=== PATIENT | female | born 1985 | race Caucasian/White ===

== ENCOUNTER 2020-06-23 08:45 | Outpatient (REF) | payer MEDICAID, SELFPAY ==
--- NOTE | 2020-06-23 | EMG_ITS ---
HISTORY OF PRESENT ILLNESS: This is a 35-year-old woman with bilateral hand pain and numbness for 7 months. The symptoms are primarily on the right. PHYSICAL EXAMINATION: On examination, she is alert and oriented with normal intellectual functions. Cranial nerves II through XII are normal. Muscle tone and strength are normal. There is no Tinel or Phalen sign. IMPRESSION: Rule out carpal tunnel syndrome. NERVE CONDUCTION EMG STUDY: Normal electrodiagnostic study of the right upper extremity with no evidence of carpal tunnel syndrome or nerve entrapment. Normal EMG of the right C5-T1 innervated muscles. MD CATARINO Osborne/OSWALD / [id number]
== END 2020-06-23 08:46 | disposition home or self-care (01) ==
LOC: HO.NEURO 08:45
PROVIDERS: PCP Family Medicine; Visit Provider Family Medicine
DX: M25.531 Pain in right wrist (principal); M79.641 Pain in right hand
CPT/HCPCS: 95860; 95886; 95910

== ENCOUNTER 2020-11-24 10:19 | Outpatient (REF) | payer MEDICAID, SELFPAY ==
--- NOTE | ~2020-11-24 | XR_ITS ---
EXAMINATION: XR ANKLE, LEFT CLINICAL INFORMATION: Effusion left ankle. COMPARISON: None TECHNIQUE: AP, lateral, and mortise views of the left ankle. FINDINGS: There is no fracture, dislocation or destructive process. The malleoli are intact and the ankle mortise is symmetric. The tibiotalar joint shows no narrowing, erosive change or chondrocalcinosis. There is no visible ankle capsular effusion. The retrocalcaneal recess is preserved. The subtalar joint is unremarkable. There is borderline posterior calcaneal spur. XR/XR ankle LT min 3V IMPRESSION: No fracture, destructive process, or arthropathy. No visible ankle capsular effusion.
--- NOTE | ~2020-11-24 | XR_ITS ---
EXAMINATION: XR RIBS, LEFT CLINICAL INFORMATION: Pleurodynia. COMPARISON: Chest radiographs 12/25/2018, 11/02/2012 TECHNIQUE: Three views of the left ribs were obtained. FINDINGS: There is no visible rib fracture or rib destructive process. No periostitis. Bony mineralization is normal. The left lung is clear, and there is no pneumothorax or pleural reaction or effusion. XR/XR ribs LT 2V IMPRESSION: Unremarkable examination.
== END 2020-11-24 10:20 | disposition home or self-care (01) ==
LOC: HO.XRAY 10:19
PROVIDERS: PCP Family Medicine; Visit Provider Family Medicine
DX: M25.472 Effusion, left ankle (principal); R07.81 Pleurodynia
CPT/HCPCS: 71100; 73610

== ENCOUNTER 2020-12-22 08:15 | Outpatient (REF) | payer MEDICAID, SELFPAY ==
--- NOTE | ~2020-12-22 | US_ITS ---
EXAMINATION: US ABDOMEN COMPLETE CLINICAL INFORMATION: Left upper quadrant pain. COMPARISON: Renals only ultrasound dated 05/29/2017. CT abdomen and pelvis without contrast dated 04/17/2017. Bilateral renal ultrasound dated 08/04/2011. TECHNIQUE: Real-time imaging of the abdominal viscera. FINDINGS: PANCREAS: The head and body the pancreas are normal. The tail is not well visualized due to bowel gas. ABDOMINAL AORTA: The proximal, mid, and distal segments are normal in caliber. INFERIOR VENA CAVA: Visualized portions are normal. LIVER: Normal. The liver is normal in size. The liver contour is normal. Parenchymal echogenicity is normal. No focal hepatic lesion. There is no intrahepatic biliary duct dilatation seen. GALLBLADDER: The gallbladder is physiologically distended. Multiple mobile gallstones are present. No evidence of gallbladder wall thickening or pericholecystic fluid. COMMON BILE DUCT: Normal in caliber measuring 0.3 cm in diameter. RIGHT KIDNEY: There is a 4 mm echogenic density with twinkle artifact in the upper pole interval for a stone. This is similar to previous renal ultrasound May 2017. No hydronephrosis or focal parenchymal lesions. The kidney measures 10.3 cm in maximum dimension. LEFT KIDNEY: 1.3 x 1 x 1.1 cm cyst in the upper pole. No hydronephrosis or renal calculi. The kidney measures 10.6 cm in maximum dimension. SPLEEN: Normal. The spleen measures 9.6 cm in maximum dimension. FREE FLUID: None. US/US abdomen complete IMPRESSION: Gallstones. Question small right renal stone. Small left renal cyst. Limited visualization of the tail the pancreas.
== END 2020-12-22 08:16 | disposition home or self-care (01) ==
LOC: HO.US 08:15
PROVIDERS: Visit Provider Family Medicine
DX: R10.12 Left upper quadrant pain (principal)
CPT/HCPCS: 76700

== ENCOUNTER 2021-01-03 08:52 | Outpatient (REF) | payer MEDICAID, SELFPAY ==
--- NOTE | ~2021-01-03 | CT_ITS ---
EXAMINATION: CT ABDOMEN AND PELVIS WITHOUT CONTRAST CLINICAL INFORMATION: Kidney stone COMPARISON: Previous abdominal ultrasound December 2020, pelvic ultrasound June [address] of the abdomen and pelvis April 2017 TECHNIQUE: Multidetector volumetric imaging was performed from the superior aspect of the liver through the pubic symphysis. Sagittal and coronal reformatted images were obtained on the technologist's workstation. This CT examination was performed using dose optimization techniques as appropriate, variously including the following: *Automated exposure control *Adjustment of mA and/or kV according to patient size (this includes techniques or standardized protocols for targeted exams where dose is matched to indication/reason for exam; i.e. extremities or head) *Use of iterative reconstruction technique DLP: 460 mGy-cm FINDINGS: LUNG BASES: The visualized lung bases are unremarkable. LIVER, GALLBLADDER, AND BILIARY TREE: The liver is normal in size, shape, and attenuation. No focal hepatic lesion or biliary ductal dilatation is present. The gallbladder is unremarkable. The gallstones seen by ultrasound are difficult to appreciate by CT. PANCREAS: Unremarkable. SPLEEN: Unremarkable. ADRENAL GLANDS: Unremarkable. KIDNEYS AND URETERS: There is a 3 mm stone in the lower pole the right kidney. There is a 1.5 cm low-attenuation lesion in the upper pole of the left kidney. Hounsfield units measure 14 suggestive of a cyst. This is similar to previous exams. The kidneys are otherwise normal.. BLADDER: Unremarkable. GASTROINTESTINAL TRACT: The small and large bowel are unremarkable. The appendix is unremarkable. ABDOMINAL WALL: No significant hernia is appreciated. LYMPH NODES: Normal. VASCULAR: Unremarkable. PELVIC VISCERA: Unremarkable. OSSEOUS STRUCTURES: Unremarkable. CT/CT abdomen pelvis wo con IMPRESSION: Small right lower pole renal stone. Left renal cyst.
== END 2021-01-03 08:53 | disposition home or self-care (01) ==
LOC: HO.CT 08:52
PROVIDERS: PCP Family Medicine; Visit Provider Family Medicine
DX: N20.0 Calculus of kidney (principal); R10.9 Unspecified abdominal pain
CPT/HCPCS: 74176

== ENCOUNTER 2021-05-24 16:30 | Outpatient (REF) | payer MEDICAID, SELFPAY ==
[2021-05-24 16:59] LABS: MANUAL DIFF FLAG NO
[2021-05-24 17:55] LABS: Basophils Absolute Auto 0.1 X10*3/uL (0.0-0.2); Basophils Percent Auto 0.8 % (0-2); Eosinophils Absolute Auto 0.1 X10*3/uL (0.0-0.4); Eosinophils Percent Auto 0.6 % (0-4); Hematocrit 38.4 % (37-47); Hemoglobin 12.2 g/dl (12.0-16.0); Imm Gran Abs Auto 0.03 X10*3/uL (0.00-0.03); Imm Gran Pct Auto 0.4 % (0.0-0.4); Lymphocytes Absolute Auto 2.4 X10*3/uL (1.2-4.9); Lymphocytes Percent Auto 27.7 % (20-40); Mean Corpuscular HGB Conc 31.8 g/dl (31.0-35.0); Mean Corpuscular Hemoglobin 25.9 pg (27.0-33.0); Mean Corpuscular Volume 81.5 fL (80-98); Mean Platelet Volume 11.6 fL (9.4-12.3); Monocytes Absolute Auto 0.7 X10*3/uL (0.1-1.2); Monocytes Percent Auto 8.1 % (2-11); Neutrophils Absolute Auto 5.3 X10*3/uL (2.0-8.3); Neutrophils Percent Auto 62.4 % (45-73); Platelet Count 229 X10*3/uL (160-400); Red Blood Count 4.71 X10*6/uL (4.20-5.50); Red Cell Distribution Width 13.7 % (11.0-16.0); White Blood Count 8.5 X10*3/uL (4.8-10.8)
[2021-05-24 18:18] LABS: C Reactive Protein 0.55 mg/dL (< or = 0.50)
[2021-05-24 18:45] LABS: Erythrocyte Sedimentation Rate 10 MM/HR (0-20)
== END 2021-05-24 16:31 | disposition home or self-care (01) ==
LOC: HO.LAB 16:30
PROVIDERS: PCP Family Medicine; Visit Provider Podiatrist
DX: Z13.89 Encounter for screening for other disorder (principal)
CPT/HCPCS: 36415; 84550; 85025; 85652; 86140

== ENCOUNTER 2021-10-19 16:31 | Outpatient (REF) | payer MEDICAID, SELFPAY ==
--- NOTE | ~2021-10-19 | XR_ITS ---
EXAMINATION: XR KNEE, LEFT CLINICAL INFORMATION: Pain in left knee COMPARISON: None TECHNIQUE: Four views of the left knee. FINDINGS: Bones and soft tissues are normal. No fracture or joint effusion. Alignment is anatomic. On sunrise view there is equivocal mild narrowing of the lateral patellofemoral compartment, otherwise the joint spaces are well maintained. No abnormal soft tissue calcification. XR/XR knee LT 4V IMPRESSION: Equivocal mild narrowing of the lateral patellofemoral compartment, otherwise normal left knee.
--- NOTE | ~2021-10-19 | XR_ITS ---
EXAMINATION: XR ANKLE, LEFT CLINICAL INFORMATION: Pain in left ankle and joints and left foot COMPARISON: Ankle radiographs 11/24/2020 TECHNIQUE: AP, lateral, and mortise views of the left ankle. FINDINGS: The bones and soft tissues are normal. No fracture. Alignment is anatomic. Joint spaces are maintained. No joint effusion. XR/XR ankle LT min 3V IMPRESSION: Normal left ankle.
== END 2021-10-19 16:32 | disposition home or self-care (01) ==
LOC: HO.XRAY 16:31
PROVIDERS: PCP Family Medicine; Visit Provider Family Medicine
DX: M25.562 Pain in left knee (principal); M25.572 Pain in left ankle and joints of left foot
CPT/HCPCS: 73564; 73610

== ENCOUNTER 2021-11-14 00:24 | Emergency (ER) | payer MEDICAID, SELFPAY ==
[2021-11-14 00:34] VITALS: BP 127/82; PULSE 89; RESP 16; TEMP 36.6; O2SAT 97; BMI 31.2
[2021-11-14] MEDS: Acetaminophen 325 MG TABLET 975 MG PO (02:45)
[2021-11-14] MEDS: Ketorolac Tromethamine 15 MG/ML VIAL IM (02:45)
[2021-11-14] MEDS: Lidocaine 4 % Patch ADH..PATCH 1 PATCH TRANSDERMA (02:46)
--- NOTE | 2021-11-14 03:21 | ED.BACK ---
HPI - Back Pain/Injury General Chief Complaint: Back Pain/Injury Stated Complaint: back pain; R leg numb Time Seen by Provider: 11/14/21 02:31 Source: patient Mode of arrival: ambulatory History of Present Illness HPI Narrative: 36-year-old female with history of hypertension presents with acute on chronic right lower back pain that wraps around the right hip in comes down the lateral aspect of the right thigh. She denies any associated numbness/tingling/weakness within that right lower extremity and denies any fever, chills, bowel or bladder dysfunction denies any numbness to the groin area. She denies any recent falls. This is been ongoing for 2 weeks Related Data Previous Rx's Medication Instructions Recorded cyclobenzaprine 5 mg tablet 5 mg PO BEDTIME PRN #4 tab 11/14/21 ketorolac 10 mg tablet 10 mg PO Q6H PRN 5 Days #20 tab 11/14/21 Allergies Allergy/AdvReac Type Severity Reaction Status Date / Time sumatriptan [From IMITREX] Allergy Unknown AGITATION Verified 11/14/21 02:44 Review of Systems Review of Systems: Pertinent positives and negatives as stated in HPI 10 point review of systems is otherwise negative. [facility] Past Medical History Source: nursing notes reviewed Social History Social History Advance Directives: No Patient : No Physical Exam Vital Signs: Vital Signs: Last Vital Signs Temp 97.9 F 11/14/21 00:34 Pulse 89 11/14/21 00:34 Resp 16 11/14/21 00:34 BP 127/82 11/14/21 00:34 Pulse Ox 97 11/14/21 00:34 BMI result Body Mass Index 31.2 VITAL SIGNS: Reviewed. GENERAL: Well developed, well nourished, in no acute distress. HEAD: Normocephalic/atraumatic EYES: PERRLA, EOMI EARS: Ext canals without abnormality OROPHARYNX: no oral lesions noted, posterior pharynx clear LUNGS: Normal breath sounds. No adventitious sounds or accessory muscle use. SpO2<97> CARDIOVASCULAR: Regular rate and rhythm without noted murmurs ABDOMEN: Soft, non-tender, non-distended with bowel sounds, no CVA tenderness BACK: No midline vertebral tenderness there is likely spasm along the right paraspinal area, straight leg test is negative, neurovascularly intact distal on the right lower extremity. MUSCULOSKELETAL: No tenderness, deformities, or effusions noted on gross inspection. EXTREMITIES: No cyanosis, clubbing or edema. SKIN: Inspection of the skin reveals no rashes NEUROLOGIC: Alert and oriented x 4. Strength and sensation to light touch were grossly intact x 4. Course Course Course Narrative: 36-year-old female with history and clinical presentation consistent with acute on chronic lumbago and no evidence to suggest cauda equina, spinal pathology, renal colic. Patient received combination analgesics as well as muscle relaxant a lidocaine patch in on re-evaluation she reports improvement in her symptoms. She is discharged home in stable condition. Discharge Plan Discharge Clinical Impression: Lumbar radiculopathy Patient Disposition: Home, Self-Care Instructions: Lumbar Radiculopathy (ED), Lower Back Exercises (ED) Additional Instructions: 1. Tylenol 1000 mg, orally, every 6 hours as needed for pain control. Do not exceed 4000 mg within 24 hours. 2. Lidocaine patch, apply to area of maximal tenderness as indicated on the outside packaging. 3. Apply ice to unexposed skin for 10-15 minutes, 2 to 3 times a day. 4. Follow-up with your primary care provider in the next 1-2 days for re-evaluation further outpatient management. Return to the ER for worsening symptoms. Prescriptions: New ketorolac 10 mg tablet 10 mg PO Q6H PRN (Reason: pain) 5 Days Qty: 20 0RF Rx Instructions: Patient received Toradol in the emergency room. cyclobenzaprine 5 mg tablet 5 mg PO BEDTIME PRN (Reason: muscle spasm) Qty: 4 0RF Referrals: [facility] [Primary Care Provider] - 2 days
[2021-11-14] MEDS: Cyclobenzaprine HCl 5 MG TABLET PO (04:07)
== END 2021-11-14 04:14 | disposition home or self-care (01) ==
PROVIDERS: Emergency Provider Student in an Organized Health Care Education/Training Program
DX: M54.16 Radiculopathy, lumbar region (principal); M54.50 Low back pain, unspecified
CPT/HCPCS: 96372; 99283; 99284; J1885

== ENCOUNTER 2021-12-22 08:50 | Outpatient (REF) | payer MEDICAID, SELFPAY ==
--- NOTE | 2021-12-22 08:52 | EMG_ITS ---
Right median and ulnar motor and sensory studies were performed. Right radial sensory study was performed and paraspinal muscles were tested with a needle. IMPRESSION: This is an unremarkable study with no evidence of median or ulnar neuropathy or radiculopathy. MD SCOTTY Mooney/OSWALD / [id number]
== END 2021-12-22 08:51 | disposition home or self-care (01) ==
LOC: HO.NEURO 08:50
PROVIDERS: Visit Provider Family Medicine
DX: M25.531 Pain in right wrist (principal)
CPT/HCPCS: 95886; 95909

== ENCOUNTER 2022-10-31 11:08 | Emergency (ER) | payer MEDICAID, SELFPAY ==
--- NOTE | 2022-10-31 | ECG_ITS ---
Test Reason : abnormal EKG Blood Pressure : / mmHG Vent. Rate : 112 BPM Atrial Rate : 112 BPM P-R Int : 142 ms QRS Dur : 072 ms QT Int : 298 ms P-R-T Axes : 046 023 -29 degrees QTc Int : 406 ms Sinus tachycardia Nonspecific T wave abnormality Abnormal ECG No previous ECGs available Referred By: Generic ED Physician Electronically Signed By:FAUSTINA MATUTE MD
[2022-10-31 11:12] VITALS: BP 115/79; BP 121/78; PULSE 130; PULSE 132; RESP 16; TEMP 36.8; O2SAT 96; BMI 24.2
--- NOTE | 2022-10-31 11:33 | PC.NURSE ---
repeat labs drawn and sent
--- NOTE | 2022-10-31 11:40 | ED.GENADULT ---
HPI - General Adult General Chief complaint: Recheck/Abnormal Lab/Rx Stated complaint: DIZZY,+STREP Time Seen by Provider: 10/31/22 11:17 Source: patient and EMS Mode of arrival: EMS Limitations: no limitations History of Present Illness HPI narrative: 37-year-old female with a history of migraines who presents to the ER with complaints of sore throat, headache, feeling dizzy and lightheaded when she moves around and chills since yesterday. Patient reports she went to Urgent Care was diagnosed with strep throat. She was noticed to have an elevated heart rate and was referred into the ER for further evaluation. Patient received 500 mL of normal saline by EMS. Denies any fever, vomiting, diarrhea, abdominal pain, chest pain, shortness of breath. Patient reports she was given a prescription for a antibiotic which she did not start yet. Related Data Previous Rx's Medication Instructions Recorded cyclobenzaprine 5 mg tablet 5 mg PO BEDTIME PRN muscle spasm 11/14/21 #4 tabs ketorolac 10 mg tablet 10 mg PO Q6H PRN pain 5 days #20 11/14/21 tabs Allergies Allergy/AdvReac Type Severity Reaction Status Date / Time sumatriptan [From IMITREX] Allergy Unknown AGITATION Verified 11/14/21 02:44 Review of Systems Review of Systems: Yes all other systems are reviewed and are negative Constitutional: Constitutional: Reports no additional constitutional complaints, Denies body ache(s), Reports chills, Denies fever(s), Reports headache(s) and Denies weakness Eyes: Eyes: Reports no additional eye complaints and Denies change in vision ENT: Reports system reviewed and no additional complaints, except as documented, Reports dizziness, Reports headache(s), Denies nasal congestion, Denies nasal discharge, Denies neck pain and Reports sore throat Cardiovascular: Cardiovascular: Reports no additional cardiovascular complaints, Denies chest pain, Denies leg edema and Denies dyspnea Respiratory: Respiratory: Reports no additional respiratory complaints, Denies cough and Denies dyspnea Gastrointestinal: Gastrointestinal: Reports no additional gastrointestinal complaints, Denies abdominal pain, Denies diarrhea, Denies nausea and Denies vomiting Genitourinary: Genitourinary: Reports no additional female genitourinary complaints and Denies urinary incontinence Musculoskeletal: Musculoskeletal: Reports no additional musculoskeletal complaints, Denies back pain, Denies arthralgias, Denies joint swelling, Denies neck pain, Denies numbness and Denies tingling Integumentary/Breasts: Skin/Breast: Reports system reviewed and no additional complaints, except as docu and Denies rash Neurologic: Reports system reviewed and no additional complaints, except as documented, Reports dizziness, Reports headache(s), Denies numbness, Denies tingling and Denies weakness [facility] Past Medical History Attestation statement: The following information was validated with the patient. Source: old records reviewed and nursing notes reviewed Social History Social History Advance Directives: No Advance Directives Information Provided: No Physical Exam ED Vital Signs: Vital Signs - 24 hr 10/31/22 11:12 10/31/22 12:52 Temperature 98.2 F Pulse Rate 130 H 85 Respiratory Rate 16 16 Blood Pressure 115/79 123/87 Pulse Oximetry 96 99 Oxygen Delivery Method Room Air Room Air BMI result Body Mass Index 24.2 Const General: cooperative, healthy appearing, comfortable and no acute distress Orientation/consciousness: patient oriented x3 Limitations: no limitations HENMT Head: Yes normal to inspection Ears: hearing grossly normal bilaterally and TM's normal bilaterally General nose exam: Normal external nose present Face and sinus: Yes normal facial exam Mouth: Normal oral and palatal mucosa present Throat: Yes posterior oropharynx normal, Yes uvula midline and Yes abnormal tonsil (Bilateral tonsillar erythema and swelling with exudate) Eyes General: appearance normal, both eyes and all related structures Pupils: Equal, round and reactive pupils present Neck Neck: Yes normal visual inspection, Yes full ROM, Yes no lymphadenopathy and Yes no meningeal signs Chest Chest palpation & inspection: normal inspection of the chest Resp Effort & Inspection: normal respiratory effort Auscultation: clear to auscultation bilaterally Cardio Rate: tachycardic Rhythm: regular rhythm Peripheral pulses: Peripheral pulses 2+ throughout GI Inspection: Yes normal to inspection Palpation (GI): Soft to palpation and nontender General: Yes no CVA tenderness Back/Spine/Pelvis Back: no CVA tenderness Thoracic/Lumbar Spine: thoracic and lumbar spine normal to inspection Skin General skin exam: no rashes or lesions noted Neuro General: patient oriented x3, moves all extremities and no meningeal signs Cranial nerves: Yes CN's II-XII intact bilaterally and Yes Equal, round and reactive pupils present Cognition (Neuro): normal cognition Gait exam (Neuro): Normal gait present Motor exam (neuro): 5/5 motor strength present throughout Sensory Exam: Normal double simultaneous stimulation for sensation Extrem General: Yes normal to inspection, Yes no pedal edema and Yes no calf tenderness Course Course Course Narrative: HR now 80. Patient tolerating p.o.. Patient feels improved. Patient has a prescription for antibiotics for her pharyngitis. Recommend she go home and feel this antibiotic. Reviewed worrisome signs and symptoms of when to return to the emergency room. Comfortable plan for discharge home. Medications Administered Discontinued Medications Generic Name Dose Route Start Last Admin Trade Name Freq PRN Reason Stop Dose Admin Sodium Chloride 1,000 mls @ 999 mls/hr 10/31/22 11:39 10/31/22 12:22 Ns IV 10/31/22 12:39 Infused .Q1H1M STA Infusion Ketorolac Tromethamine 15 mg 10/31/22 11:39 10/31/22 11:46 Ketorolac Tromethamine 15 Mg/Ml Vial IVPUSH 10/31/22 11:40 15 mg ONCE ONE Administration Medical Decision Making Medical Decision Making MDM Narrative: 37-year-old female with history of migraines who presents with 2 days of sore throat, headache, chills and feeling lightheaded and dizzy when she walks around. Patient seen at an outpatient urgent care and diagnosed with strep pharyngitis and prescribed an antibiotic. Patient was noted to be tachycardic and was referred into the ER for further evaluation. Patient reports secondary to her symptoms she has had decreased oral intake over the last 48 hours. Patient received 500 mL of normal saline prior to arrival. Her heart rate is now 112. Will give additional 1 L of IV fluids, analgesia. Differential Diagnosis Differential Diagnoses: The differential diagnosis associated with the presentation includes Dehydration, sinus tachycardia, strep pharyngitis Independent Interpretation I performed an independent interpretation of an: EKG Interpretation: I independently reviewed the EKG which shows sinus tachycardia with rate of 112, normal TN, normal QRS, normal QT. 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 cyclobenzaprine 5 mg tablet 5 mg PO BEDTIME PRN (Reason: muscle spasm) Qty: 4 0RF Referrals: Kassy Land MD [Primary Care Provider] - 1 week Stand Alone Forms: Work/School Release Interventions: ED Discharge Assessment Last Done: 10/31/22 15:32 Discharge Date/Time: 10/31/22 15:36
[2022-10-31] MEDS: 0.9 % Sodium Chloride 1,000 ML 999 ML IV (11:45)
[2022-10-31] MEDS: Ketorolac Tromethamine 15 MG/ML VIAL IVPUSH (11:46)
[2022-10-31 12:52] VITALS: BP 123/87; PULSE 85; RESP 16; O2SAT 99
== END 2022-10-31 15:36 | disposition home or self-care (01) ==
PROVIDERS: Emergency Provider Emergency Medicine; PCP Family Medicine
DX: J02.0 Streptococcal pharyngitis (principal); R42 Dizziness and giddiness; E86.0 Dehydration; R94.31 Abnormal electrocardiogram [ECG] [EKG]
CPT/HCPCS: 93005; 96361; 96374; 99284; J1885

== ENCOUNTER 2022-12-27 12:59 | Outpatient (REF) | payer MEDICAID, SELFPAY ==
--- NOTE | ~2022-12-27 | US_ITS ---
EXAMINATION: US LOWER EXTREMITY VENOUS (REFLUX EXAM), BILATERAL CLINICAL INDICATION: Varicose veins COMPARISON: None. TECHNIQUE: Color flow triplex imaging and compression Doppler was performed to evaluate both the deep and the superficial systems bilaterally. To evaluate the superficial system, the examination was performed in the upright position. Color-flow Doppler ultrasound and compression ultrasound were utilized. In addition, maneuvers were utilized to demonstrate reflux. FINDINGS: 1. DEEP VENOUS ULTRASOUND OF THE RIGHT LOWER EXTREMITY: Common Femoral Vein: Compressible, normal respiratory variation and augmented flow. Femoral Vein: Compressible, normal color flow and augmentation. Popliteal Vein: Compressible, normal augmentation. Deep Reflux: There is no evidence of reflux in the deep system in either the common femoral vein or the popliteal vein. There is no evidence of a Barth's cyst. 2. SUPERFICIAL ULTRASOUND WITH DOPPLER OF RIGHT LOWER EXTREMITY: GREAT SAPHENOUS VEIN: Saphenofemoral Junction: 0.7 cm; Reflux: 0 ms Proximal Thigh: 0.4 cm; Reflux: 0 ms Mid Thigh: 0.4 cm; Reflux: 0 ms Above Knee: 0.5 cm; Reflux: 0 ms At Knee: 0.5 cm; Reflux: 0 ms Below Knee: 0.4 cm; Reflux: 0 ms Mid Calf: 0.2 cm; Reflux: 0 ms Ankle: 0.3 cm; Reflux: 0 ms DUPLICATED MEDIAL GREAT SAPHENOUS VEIN: Diameter: None Imaged Reflux: NA DUPLICATED LATERAL GREAT SAPHENOUS VEIN: Proximal: 0.3 cm; Reflux: 0 ms Distal: 0.3 cm; Reflux: 0 ms SMALL SAPHENOUS VEIN: Proximal: 0.5 cm; Reflux: 0 ms Distal: 0.3 cm; Reflux: 0 ms VEIN OF GIACOMINI: None Imaged. PERFORATORS: Location: None Imaged Size: NA Reflux: NA VARICOSITIES: Location: None Imaged Size: NA Reflux: NA 3. DEEP VENOUS ULTRASOUND OF THE LEFT LOWER EXTREMITY: Common Femoral Vein: Compressible, normal respiratory variation and augmented flow. Femoral Vein: Compressible, normal color flow and augmentation. Popliteal Vein: Compressible, normal augmentation. Deep Reflux: There is no evidence of reflux in the deep system in either the common femoral vein or the popliteal vein. There is no evidence of a Barth's cyst. 4. SUPERFICIAL ULTRASOUND WITH DOPPLER OF LEFT LOWER EXTREMITY: GREAT SAPHENOUS VEIN: Saphenofemoral Junction: 0.6 cm; Reflux: 0 ms Proximal Thigh: 0.4 cm; Reflux: 0 ms Mid Thigh: 0.4 cm; Reflux: 0 ms Above Knee: 0.4 cm; Reflux: 0 ms At Knee: 0.5 cm; Reflux: 0 ms Below Knee: 0.3 cm; Reflux: 1744 ms Mid Calf: 0.3 cm; Reflux: 0 ms Ankle: 0.2 cm; Reflux: 0 ms DUPLICATED MEDIAL GREAT SAPHENOUS VEIN: Diameter: None Imaged Reflux: NA DUPLICATED LATERAL GREAT SAPHENOUS VEIN: Proximal: 0.4 cm; Reflux: 0 ms Distal: 0 cm; Reflux: 0 ms SMALL SAPHENOUS VEIN: Proximal: 0.3 cm; Reflux: 0 ms Distal: 0.2 cm; Reflux: 0 ms VEIN OF GIACOMINI: None Imaged. PERFORATORS: Location: multiple thigh and calf Size: 0.2-0.3cm Reflux: NA VARICOSITIES: Location: SSV mid, prox thigh, at knee Size: 0.3cm Reflux: NA US/US venous duplex LE BI IMPRESSION: 1. No DVT in the bilateral lower extremity. 2. No reflux in the bilateral small saphenous veins.
== END 2022-12-27 13:00 | disposition home or self-care (01) ==
LOC: HO.US 12:59
PROVIDERS: PCP Family Medicine; Visit Provider Family Medicine
DX: R22.43 Localized swelling, mass and lump, lower limb, bilateral (principal)
CPT/HCPCS: 93970

== ENCOUNTER 2023-09-20 07:55 | Outpatient (REF) | payer OTHER, SELFPAY ==
--- NOTE | ~2023-09-20 | MM_ITS ---
EXAMINATION: MM SCREENING DIGITAL BREAST TOMOSYNTHESIS, BILATERAL CLINICAL INFORMATION: Screening. Asymptomatic. COMPARISON: Mammography: This is a baseline mammogram. TECHNIQUE: Digital breast tomosynthesis is performed in both the craniocaudal and mediolateral oblique views along with computer-aided detection (CAD). Synthesized 2D images are generated from the tomosynthesis. FINDINGS: There are scattered areas of fibroglandular density (ACR BI-RADS breast composition Category b). There are no significant masses, abnormal calcifications, or other abnormalities. MM/MM tomosynthesis screening BI IMPRESSION: No mammographic evidence of malignancy. ASSESSMENT: BI-RADS BI-RADS 1 - Negative RECOMMENDATION: Routine annual mammography screening. 1 year F/U This examination should not preclude the clinical evaluation of a suspicious palpable abnormality. This patient's information was entered into a reminder system with a target due date for their next mammogram.
== END 2023-09-20 07:56 | disposition home or self-care (01) ==
LOC: HO.MAMMO 07:55
PROVIDERS: PCP Family Medicine; Visit Provider Family Medicine
DX: Z12.31 Encounter for screening mammogram for malignant neoplasm of breast (principal)
CPT/HCPCS: 77063; 77067

== ENCOUNTER → 2023-09-20 08:15 | Outpatient (BNV) | payer OTHER, SELFPAY | PROVIDERS: PCP Family Medicine; Visit Provider Radiology Diagnostic Radiology | DX: Z12.31 Encounter for screening mammogram for malignant neoplasm of breast (principal) | CPT/HCPCS: 77063; 77067 ==

== ENCOUNTER 2024-03-17 12:09 | Emergency (ER) | payer OTHER, SELFPAY ==
[2024-03-17 12:36] VITALS: BP 124/76; PULSE 77; RESP 16; TEMP 37; O2SAT 99; BMI 34.8
--- NOTE | 2024-03-17 12:38 | ED.GENADULT ---
HPI - General Adult General Chief complaint: Headache Stated complaint: Migraine 4 days Time Seen by Provider: 03/17/24 17:55 Source: patient Mode of arrival: ambulatory Limitations: no limitations History of Present Illness ED Provider: Javy Vallejo PA-C HPI narrative: 38 yo female with history of migraines presents to the ER for evaluation of a right sided migraine headache that started 4 days ago. She reports the headache is located on the right side of the head and she feels pressure behind the right eye. It is associated with dizziness and nausea. She states this is typical for her migraines but she has not gotten one in a long time. She is not taking any medications for migraines at the moment. She denies any trauma, vision changes, vomiting, weakness, numbness or tingling MD complaint: Right-sided migraine headache Onset (ago): day(s) (4) Location: head Radiation: non-radiation Severity: severe Quality: aching and dull Pain Consistency: constant Relieving factors: none Exacerbating factors: other (light, sound) Associated symptoms: nausea/vomiting Treatments prior to arrival: none Related Data Previous Rx's ?Medication ?Instructions ?Recorded cyclobenzaprine 5 mg tablet 5 mg PO BEDTIME PRN muscle spasm 11/14/21 #4 tabs ketorolac 10 mg tablet 10 mg PO Q6H PRN pain 5 days #20 11/14/21 tabs dudilfizyw-kxrzzamjfbnhx-mgxvfmlf 1 cap PO Q8H PRN headache #10 caps 03/17/24 50 mg-300 mg-40 mg capsule (Fioricet) Allergies Allergy/AdvReac Type Severity Reaction Status Date / Time sumatriptan [From IMITREX] Allergy Unknown AGITATION Verified 03/17/24 12:38 Review of Systems Review of Systems: Yes all other systems are reviewed and are negative [facility] Social History Social History Advance Directives: No Advance Directives Information Provided: No Physical Exam ED Vital Signs: Vital Signs - 24 hr 03/17/24 12:36 03/17/24 20:51 Temperature 98.6 F 98.1 F Pulse Rate 77 71 Respiratory Rate 16 14 Blood Pressure 124/76 120/79 Pulse Oximetry 99 100 Oxygen Delivery Method Room Air Room Air BMI result Body Mass Index 34.8 Appearance: Alert. Oriented X3. Appears uncomfortable, holding right eye closed Head: normocephalic, atraumatic. Eyes: Pupils equal, round and reactive to light. ENT: Pharynx normal. No tonsillar swelling or exudate. Neck: Normal inspection. Neck supple. CVS: Normal heart rate and rhythm. Pulses normal. Respiratory: No respiratory distress. Breath sounds normal. Abdomen: Soft and nontender. +BS x4 Skin: Skin warm and dry. Normal skin color. Normal skin turgor. No rashes. Extremities: No lower extremity edema. No joint swelling. Neuro/psych: Oriented X 3. No motor deficit. No sensory deficit. CN II-XII intact. Normal speech and cognition. Steady gait, nonfocal Course Course Course Narrative: RME: Done by SOTERO Bertrand. 38 yold female with pmh of migraine presents to ED for migraine exacerbation. Patient states ran out having her usual migraine headache. Patient states no relief with Motrin and Tylenol at home. Patient denies any fever, chills, neck stiffness, chest pain, shortness of breath. Patient denies any slurred speech, facial droop, paralysis of extremities, or loss of vision. NIH score is 0. Basic labs are ordered. Medications Administered Discontinued Medications Generic Name Dose Route Start Last Admin Trade Name Freq PRN Reason Stop Dose Admin Diphenhydramine HCl 50 mg 03/17/24 17:56 03/17/24 18:08 Diphenhydramine Hcl 50 Mg/Ml Vial IVPUSH 03/17/24 17:57 50 mg ONCE ONE Administration Ketorolac Tromethamine 30 mg 03/17/24 17:56 03/17/24 18:08 Ketorolac Tromethamine 30 Mg/Ml Vial IVPUSH 03/17/24 17:57 30 mg ONCE ONE Administration Metoclopramide HCl 10 mg 03/17/24 17:56 03/17/24 18:08 Metoclopramide Hcl 10 Mg/2 Ml Vial IVPUSH 03/17/24 17:57 10 mg ONCE ONE Administration Medical Decision Making Medical Decision Making MDM Narrative: 38-year-old female presents to the ER for evaluation of a migraine headache for the last 4 days located on the right side of her head and face. It associated with dizziness and nausea. She is nonfocal on arrival to the ER. Exam is benign. No trauma. No need for emergent CT of the head today. Lab workup was done and was unremarkable. test was negative. IV was established and she was given IV migraine cocktail including Benadryl, Reglan, Toradol with improvement in her pain. She was monitored in the ER and felt better after treatment. Differential Diagnosis Differential Diagnoses: The differential diagnosis associated with the presentation includes Migraine headache, tension headache, cluster headache, dehydration, Lab Data MDM Lab Attestation statement: I reviewed the patient's lab results. No leukocytosis or anemia, no major metabolic derangement 03/17/24 13:09 03/17/24 13:09 Labs: Lab Results 03/17/24 Range/Units 13:09 WBC 6.6 (4.8-10.8) X10*3/uL RBC 5.08 (4.20-5.50) X10*6/uL Hgb 13.4 (12.0-16.0) g/dl Hct 41.1 (37.0-47.0) % MCV 80.9 (80.0-98.0) fL MCH 26.4 L (27.0-33.0) pg MCHC 32.6 (31.0-35.0) g/dl RDW 13.4 (11.0-16.0) % Plt Count 260 (160-400) X10*3/uL MPV 10.3 (9.4-12.3) fL Immature Gran % (Auto) 0.3 (0.0-0.4) % Neut % (Auto) 59.1 (45-73) % Lymph % (Auto) 31.1 (20-40) % Logan % (Auto) 7.7 (2-11) % Eos % (Auto) 0.9 (0-4) % Baso % (Auto) 0.9 (0-2) % Lymph # (Auto) 2.1 (1.2-4.9) X10*3/uL Logan # (Auto) 0.5 (0.1-1.2) X10*3/uL Eos # (Auto) 0.1 (0.0-0.4) X10*3/uL Baso # (Auto) 0.1 (0.0-0.2) X10*3/uL Abs Immat Gran (auto) 0.02 (0.00-0.03) X10*3/uL Absolute Neuts (auto) 3.9 (2.0-8.3) x10*3/uL Absolute Nucleated RBC 0.000 (0.0-0.012) X10*3/uL Nucleated RBC % (auto) 0.0 (0.0-0.2) /100WBC Sodium 139 (135-145) mmol/L Potassium 4.1 (3.3-5.1) mmol/L Chloride 110 H (96-108) mmol/L Carbon Dioxide 23 (22-29) mmol/L Anion Gap 10 L (12-20) BUN 9 (9-16) mg/dL Creatinine 0.70 (0.5-1.4) mg/dL Estim Creat Clear Calc 100.5 Estimated GFR > 60 Random Glucose 89 (60-115) mg/dL Calcium 9.5 (8.4-10.2) mg/dL Total Bilirubin 0.5 (0.0-1.0) mg/dL AST 18 (5-31) U/L ALT 15 (0-31) U/L Alkaline Phosphatase 73 (39-117) U/L Total Protein 7.6 (6.5-8.0) g/dL Albumin 4.0 (3.5-5.0) g/dL Beta HCG, Quant < 2 mIU/mL Influenza Type A (PCR) NEGATIVE (Negative) Influenza Type B (PCR) NEGATIVE (Negative) RSV RNA Qual (PCR) NEGATIVE (Negative) SARS-CoV-2 RNA (RT-PCR) NEGATIVE (Negative) External Record Review External record reviewed: Outpatient record and Prior outpatient labs Tests considered The following testing was considered but not selected: CT of the head was considered however not emergently needed today Prescription Management I considered prescription management with: Pain Medication Critical Care Time Critical Care Time Critical Care Time: No Discharge Plan Discharge Clinical Impression: Migraine Qualifiers: Migraine type: unspecified Status migrainosus presence: without status migrainosus Intractability: not intractable Qualified Code(s): G43.909 - Migraine, unspecified, not intractable, without status migrainosus Patient Disposition: Home, Self-Care Instructions: Migraine Headache (ED) Additional Instructions: Lab workup today was unremarkable. Recommend following up with your doctor for further management of your migraines. Take the prescribed migraine medication as needed. Rest and drink plenty of fluids If you develop new or worsening symptoms call 911 or come back to the ER for further evaluation. Prescriptions: New ofwppcyxls-cltzeptixnqzx-yswg [Fioricet] 50-300-40 mg capsule 1 cap PO Q8H PRN (Reason: headache) Qty: 10 0RF No Action ketorolac 10 mg tablet 10 mg PO Q6H PRN (Reason: pain) 5 Days Qty: 20 0RF Rx Instructions: Patient received Toradol in the emergency room. cyclobenzaprine 5 mg tablet 5 mg PO BEDTIME PRN (Reason: muscle spasm) Qty: 4 0RF Interventions: ED Discharge Assessment Last Done: 03/17/24 20:51 Discharge Date/Time: 03/17/24 20:52 Print Language: Italian
[2024-03-17 13:14] LABS: MANUAL DIFF FLAG NO
[2024-03-17 13:17] LABS: Basophils Absolute Auto 0.1 X10*3/uL (0.0-0.2); Basophils Percent Auto 0.9 % (0-2); Eosinophils Absolute Auto 0.1 X10*3/uL (0.0-0.4); Eosinophils Percent Auto 0.9 % (0-4); Hematocrit 41.1 % (37.0-47.0); Hemoglobin 13.4 g/dl (12.0-16.0); Imm Gran Abs Auto 0.02 X10*3/uL (0.00-0.03); Imm Gran Pct Auto 0.3 % (0.0-0.4); Lymphocytes Absolute Auto 2.1 X10*3/uL (1.2-4.9); Lymphocytes Percent Auto 31.1 % (20-40); Mean Corpuscular HGB Conc 32.6 g/dl (31.0-35.0); Mean Corpuscular Hemoglobin 26.4 pg (27.0-33.0); Mean Corpuscular Volume 80.9 fL (80.0-98.0); Mean Platelet Volume 10.3 fL (9.4-12.3); Monocytes Absolute Auto 0.5 X10*3/uL (0.1-1.2); Monocytes Percent Auto 7.7 % (2-11); Neutrophils Absolute Auto 3.9 x10*3/uL (2.0-8.3); Neutrophils Percent Auto 59.1 % (45-73); Platelet Count 260 X10*3/uL (160-400); Red Blood Count 5.08 X10*6/uL (4.20-5.50); Red Cell Distribution Width 13.4 % (11.0-16.0); White Blood Count 6.6 X10*3/uL (4.8-10.8)
[2024-03-17 13:46] LABS: Alanine Aminotransferase 15 U/L (0-31); Alkaline Phosphatase 73 U/L (39-117); Anion Gap 10 (12-20); Aspartate Amino Transferase 18 U/L (5-31); Bilirubin Total 0.5 mg/dL (0.0-1.0); Blood Urea Nitrogen 9 mg/dL (9-16); Calcium 9.5 mg/dL (8.4-10.2); Carbon Dioxide 23 mmol/L (22-29); Chloride 110 mmol/L (96-108); Creatinine Clr Calc Pharmacy 100.5; Estimated Glomerular Filt Rate > 60; Glucose Random 89 mg/dL (60-115); HCG Quantitative < 2 mIU/mL; Potassium 4.1 mmol/L (3.3-5.1); Sodium 139 mmol/L (135-145); Total Protein 7.6 g/dL (6.5-8.0)
[2024-03-17 13:55] LABS: Influenza A PCR NEGATIVE (Negative); Influenza B PCR NEGATIVE (Negative); Resp Syncy Virus RNA Qual PCR NEGATIVE (Negative); SARS COV2 PCR INHOUSE NEGATIVE (Negative)
[2024-03-17] MEDS: diphenhydrAMINE HCL 50 MG/ML VIAL IVPUSH (18:08)
[2024-03-17] MEDS: Metoclopramide HCl 10 MG/2 ML VIAL IVPUSH (18:08)
[2024-03-17] MEDS: Ketorolac Tromethamine 30 MG/ML VIAL IVPUSH (18:08)
[2024-03-17 20:51] VITALS: BP 120/79; PULSE 71; RESP 14; TEMP 36.7; O2SAT 100
== END 2024-03-17 20:52 | disposition home or self-care (01) ==
PROVIDERS: Physician Assistant; Emergency Provider Emergency Medicine Emergency Medical Services; PCP Family Medicine
DX: G43.909 Migraine, unspecified, not intractable, without status migrainosus (principal); R11.2 Nausea with vomiting, unspecified; R42 Dizziness and giddiness; Z03.818 Encounter for observation for suspected exposure to other biological agents ruled out; Z79.899 Other long term (current) drug therapy
CPT/HCPCS: 0241U; 80053; 84702; 85025; 96374; 96375; 99283; 99284; J1200; J1885; J2765

== ENCOUNTER 2024-05-14 11:09 | Outpatient (REF) | payer OTHER, SELFPAY ==
[2024-05-14 13:43] LABS: MANUAL DIFF FLAG NO
[2024-05-14 14:01] LABS: Basophils Absolute Auto 0.1 X10*3/uL (0.0-0.2); Eosinophils Absolute Auto 0.1 X10*3/uL (0.0-0.4); Eosinophils Percent Auto 0.6 % (0-4); Hematocrit 40.4 % (37.0-47.0); Hemoglobin 12.8 g/dl (12.0-16.0); Imm Gran Abs Auto 0.03 X10*3/uL (0.00-0.03); Imm Gran Pct Auto 0.4 % (0.0-0.4); Lymphocytes Absolute Auto 2.1 X10*3/uL (1.2-4.9); Lymphocytes Percent Auto 27.4 % (20-40); Mean Corpuscular HGB Conc 31.7 g/dl (31.0-35.0); Mean Corpuscular Hemoglobin 26.2 pg (27.0-33.0); Mean Corpuscular Volume 82.6 fL (80.0-98.0); Mean Platelet Volume 11.7 fL (9.4-12.3); Monocytes Absolute Auto 0.8 X10*3/uL (0.1-1.2); Monocytes Percent Auto 10.3 % (2-11); Neutrophils Absolute Auto 4.7 x10*3/uL (2.0-8.3); Neutrophils Percent Auto 60.3 % (45-73); Platelet Count 287 X10*3/uL (160-400); Red Blood Count 4.89 X10*6/uL (4.20-5.50); Red Cell Distribution Width 13.2 % (11.0-16.0); White Blood Count 7.8 X10*3/uL (4.8-10.8)
[2024-05-14 14:23] LABS: Estimated Average Glucose 100 mg/dL; Hemoglobin A1C 103.1338 umol/L; Hemoglobin A1c % 5.1 % (<6.0); Total Hemoglobin (HGBA1C) 3184.4448 umol/L
[2024-05-14 14:30] LABS: Alanine Aminotransferase 16 U/L (0-31); Alkaline Phosphatase 76 U/L (39-117); Anion Gap 13 (12-20); Aspartate Amino Transferase 20 U/L (5-31); Bilirubin Total 0.6 mg/dL (0.0-1.0); Blood Urea Nitrogen 7 mg/dL (9-16); Calcium 9.3 mg/dL (8.4-10.2); Carbon Dioxide 22 mmol/L (22-29); Chloride 108 mmol/L (96-108); Cholesterol 175 mg/dL (<200); Estimated Glomerular Filt Rate > 60; Glucose Random 80 mg/dL (60-115); HDL Cholesterol 42 mg/dL (>40); LDL Cholesterol Calculated 101 mg/dL (<100); Potassium 3.9 mmol/L (3.3-5.1); Sodium 139 mmol/L (135-145); Total Protein 7.8 g/dL (6.5-8.0); Triglycerides 162 mg/dL (<150)
[2024-05-14 14:38] LABS: Reflex LDLD? No
== END 2024-05-14 11:10 | disposition home or self-care (01) ==
LOC: HO.HHCL 11:09
PROVIDERS: Visit Provider Family Medicine
DX: L65.9 Nonscarring hair loss, unspecified (principal); R03.0 Elevated blood-pressure reading, without diagnosis of hypertension
CPT/HCPCS: 36415; 80053; 80061; 83036; 84443; 85025

== ENCOUNTER 2024-06-11 14:10 | Outpatient (REF) | payer OTHER, SELFPAY ==
--- NOTE | 2024-06-11 14:12 | EMG_ITS ---
Chief complaint: Right wrist pain, numbness 1st and 2nd digits Previous EMG by Dr. Tapia [address] Harry 2021 were normal. Reason for referral: Evaluate for Carpal Tunnel Syndrome Referred by: Dr. Land Procedure done: Right upper extremity NCS/EMG Precautions and/or limitations: None The limb temperature was monitored continuously and remained between 32-36 degrees C during the performance of the NCS. Nerve Conduction Studies Anti Sensory Summary Table ?Stim Site NR Onset (ms) Norm Onset (ms) Peak (ms) Norm Peak (ms) O-P Amp (?V) Norm O-P Amp Site1 Site2 Delta-0 (ms) Dist (cm) Arnulfo (m/s) Norm Arnulfo (m/s) Right Median Anti Sensory (2nd Digit) Wrist ? 1.5 2.9 <3.6 19.1 >10 Wrist 2nd Digit 1.5 14.0 93 Right Ulnar Anti Sensory (5th Digit) Wrist ? 1.7 2.7 <3.7 16.3 >15.0 Wrist 5th Digit 1.7 14.0 82 Motor Summary Table ?Stim Site NR Onset (ms) Norm Onset (ms) O-P Amp (mV) Norm O-P Amp iAmp (mV) Amp (1st) (%) Site1 Site2 Delta-0 (ms) Dist (cm) Arnulfo (m/s) Norm Arnulfo (m/s) Right Median Motor (Abd Poll Brev) Wrist ? 3.4 <3.9 6.8 >4.5 7.9 100.0 Elbow Wrist 2.9 17.5 60 >45 Elbow ? 6.3 6.6 7.7 97.1 Right Ulnar Motor (Abd Dig Minimi) Wrist ? 2.3 <3.0 7.7 >5 8.8 100.0 B Elbow Wrist 2.9 17.0 59 >45 B Elbow ? 5.2 7.4 8.6 96.1 A Elbow B Elbow 1.3 10.0 77 >45 A Elbow ? 6.5 7.5 8.7 97.4 Comparison Summary Table ?Stim Site NR Peak (ms) Norm Peak (ms) P-T Amp (?V) Site1 Site2 Delta-P (ms) Norm Delta (ms) Right Median/Radial Dig I Comparison (Digit 1 - 10cm) Median ? 2.4 <2.9 72.3 Median Radial 0.5 Radial ? 1.9 <2.8 20.1 EMG ?Side Muscle Nerve Root Ins Act Fibs Psw Amp Dur Poly Recrt Int Pat Comment Right 1stDorInt Ulnar C8-T1 Nml Nml Nml Nml Nml 0 Nml Complete Right FlexCarRad Median C6-7 Nml Nml Nml Nml Nml 0 Nml Complete Right Biceps Musculocut C5-6 Nml Nml Nml Nml Nml 0 Nml Complete Right Triceps Radial C6-7-8 Nml Nml Nml Nml Nml 0 Nml Complete Right Deltoid Axillary C5-6 Nml Nml Nml Nml Nml 0 Nml Complete FINDINGS: Interlatency difference between right median and radial sensory nerves was 0.5, which may be borderline but would consider it still within normal. Otherwise, all other motor and sensory nerves tested showed normal latencies, amplitudes and conduction velocities. Concentric needle EMG was performed in selected muscles of the right upper extremity. Study did not reveal signs of electric abnormalities as shown in the table above. IMPRESSION: 1. This is overall a normal study. 2. There is no electrodiagnostic evidence for median neuropathy, ulnar neuropathy, brachial plexopathy, or cervical radiculopathy. Thank you for your kind referral. Elke Arreola MD, ECHO Board Certified, [employer] and [employer] (ABPMR) Board Certified, [place] Board of Electrodiagnostic Medicine (ABEM) [facility] [id number] [facility]
== END 2024-06-11 14:11 | disposition home or self-care (01) ==
LOC: HO.NEURO 14:10
PROVIDERS: PCP Family Medicine; Visit Provider Family Medicine
DX: M25.531 Pain in right wrist (principal); M79.641 Pain in right hand
CPT/HCPCS: 95886; 95909

== ENCOUNTER → 2024-06-11 14:12 | Outpatient (BNV) | payer OTHER, SELFPAY | PROVIDERS: PCP Family Medicine; Visit Provider Physical Medicine & Rehabilitation | DX: M25.531 Pain in right wrist (principal); R20.0 Anesthesia of skin; R20.2 Paresthesia of skin | CPT/HCPCS: 95886; 95909 ==

== ENCOUNTER → 2024-09-25 08:00 | Outpatient (BNV) | payer OTHER, SELFPAY | PROVIDERS: PCP Family Medicine; Visit Provider Internal Medicine | DX: Z12.31 Encounter for screening mammogram for malignant neoplasm of breast (principal) | CPT/HCPCS: 77063; 77067 ==

== ENCOUNTER 2024-09-25 08:21 | Outpatient (REF) | payer OTHER, SELFPAY ==
--- OUTSIDE RECORDS SUMMARY | 2024-09-25 08:29 | XMS_ITS | Encounter Summary ---
Author Organization [employer] Address [address] [place] [address] Care Team Providers Care Orientation & Mobility Specialist Name Role Phone Kassy Land MD Primary Care Provider [phone] Reason for Visit * Reason Onset Date Comments Lab Orders 11/02/2022 Encounter Details Date Type Department Care Team ([facility] st Contact Info) Description 11/02/2022 Telephone [facility] [address], [place] [phone] Kassy Land MD [address] [place], [place] [phone] Lab Orders Social History Tobacco Use Types Packs/Day Years Used Date Smoking Tobacco: Never Passive Smoke Exposure: Never Smokeless Tobacco: Never Comments Unknown Sex and Gender Information Value Date Recorded Sex Assigned at Female 06/12/2022 10:16 AM EDT Legal Sex Female 10:16 AM EDT Gender Identity Female 06/12/2022 10:16 AM EDT Sexual Orientation Choose not to disclose 2021 10:16 AM EDT COVID-19 Exposure Response Date Recorded In the last 10 days, have yo u been in contact with someone who was confirmed or suspected to have Coronavirus/COVID-19? No / Unsure 10/31/2022 9:19 AM EDT documented as of this encounter Miscellaneous Notes * Telephone Encounter - Jluis Haim - 11/02/2022 4:30 PM EDT Tc from porter with [facility] requesting an order for an MRI for the brain with out contrast. NPI # [id number] documented in this encounter Plan of Treatment Upcoming Encounters Date Type Department Care Team (Late st Contact Info) Description 10/31/2024 11:30 AM EDT Office Visit [facility] [address], [place] [phone] Rupa Carrillo MD [address] [place] [address] documented as of this encounter Visit Diagnoses Not on filedocumented in this encounter Care Teams Orientation & Mobility Specialist Relationship Specialty Start Date End Date Kassy Land MD [address] [place] [id number] PCP - General Family Medicine 08/13/18 documented as of this encounter
--- OUTSIDE RECORDS SUMMARY | 2024-09-25 08:29 | XMS_ITS | Clinical Summary ---
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 Name Role Phone Kassy Land MD Primary Care Provider [phone] Allergies Active Allergy Reactions Criticality Noted Date Comments Amitriptyline 06/24/2013 Gabapentin 02/05/2012 Sumatriptan High 06/24/2013 Other reaction(s): ITCHINESS, DIFFICULTY BREATHING Medications cyclobenzaprin e (Flexeril) 5 MG tablet Take 1 or 2 tablets at bedtime as needed for muscle spasm 60 tablet 3 024 Active propranolol (Inderal) 20 MG tablet Take 1 tablet by mouth 30 - 60 minutes prior to anxiety-provoking situation 30 tablet 11 024 Active hydrOXYzine pamoate (Vistaril) 25 MG capsule Take 1 capsule (25 mg) by mouth every 6 (six) hours if needed for anxiety. 30 capsule 1 024 Active Semaglutide-We ight Management (Wegovy) 1 MG/0.5ML solution auto-injectorI ndications:Cla ss 2 severe obesity due to excess calories with serious comorbidity and body mass index (BMI) of 35.0 to 35.9 in adult (CMS/HCC) INJECT ONE PEN (= 1 MG) SUBCUTANEOUSLY ONCE A WEEK 2 mL 025 Active Acetaminophen 500 MG capsule Take 2 capsules (1,000 mg) by mouth every 8 (eight) hours if needed for mild pain, moderate pain, headaches or fever. 60 capsule 1 025 Active Nurtec 75 MG tablet dispersibleInd ications:Migra ine without status migrainosus, not intractable, unspecified migraine type DISSOLVE 1 TABLET ON THE TONGUE EVERY OTHER DAY NEEDED FOR MIGRAINE HEADACHE DISSOLVE ON TONGUE 8 tablet 3 025 Active diclofenac sodium 3 % gel Apply to affected painful areas once or twice daily 100 g 1 025 Active Semaglutide-We ight Management (Wegovy) 0.5 MG/0.5ML solution auto-injectorI ndications:Cla ss 2 severe obesity due to excess calories with serious comorbidity and body mass index (BMI) of 35.0 to 35.9 in adult ([facility]) Inject 0.5 mL (0.5 mg) under the skin every 7 (seven) days. 2 mL 025 2024 Discontinued Acetaminophen 500 MG capsule Take 2 capsules by mouth every 6 (six) hours. 022 2024 Discontinued(R eorder (will not trigger notification to Pharmacy)) Nurtec 75 MG tablet dispersible DISSOLVE 1 TABLET ON THE TONGUE EVERY OTHER DAY NEEDED FOR MIGRAINE HEADACHE DISSOLVE ON TONGUE 2024 Discontinued(R eorder (will not trigger notification to Pharmacy)) Active Problems Problem Noted Date Diagnosed Date Urinary incontinence 09/23/2024 Assessment & Plan (09/23/2024 10:57 AM EST): - Referred to Obstetrics / Gynecology Chronic pain syndrome 09/19/2024 Assessment & Plan (09/19/2024 6:27 PM EST): - encourage to attend chronic pain group Left upper quadrant pain 09/19/2024 Assessment & Plan (09/19/2024 6:44 PM EST): - tender in LUQ and lower rib - patient reported sensation of mass; US was normal Elevated BP without diagnosis of hypertension Assessment & Plan (09/19/2024 6:12 PM EST): -Goal BP < 140/90 per JNC-8 and < 130/80 per ACC/AHA guideline (Treatment threshold >=140/90) -Transient vs. Chronic. She does not meet a criteria for Dx at this time. -Continue working on lifestyle modifications -Recommended self-monitoring BP. -Patient is prescribed propranolol for anxiety and GLP1RA for weight loss purpose. These treatment may improve BP. Assessment & Plan (05/21/2024 6:09 AM EDT): -Goal BP < 140/90 per JNC-8 and < 130/80 per ACC/AHA guideline (Treatment threshold >=140/90) -Transient vs. Chronic. She does not meet a criteria for Dx at this time. -Continue working on lifestyle modifications -Recommended self-monitoring BP. -Patient is going to start propranolol for anxiety and GLP1RA for weight loss purpose. These treatment may improve BP. Sleep disturbance 05/21/2024 Assessment & Plan (09/19/2024 6:08 PM EST): - continue working on weight loss - due to elevated BP, Hx sinus problem, headache, and insomnia, ordered sleep study. Patient states she will reschedule appt Assessment & Plan (05/21/2024 6:23 AM EDT): - continue working on weight loss - due to elevated BP, Hx sinus problem, headache, and insomnia, will order sleep study. Localized swelling of both lower legs 11/21/2022 Assessment & Plan (09/19/2024 6:14 PM EST): Recurrent symptoms Venous study in December 2022 was normal; no venous insufficiency Continue low sodium diet Consider prn diuretic with caution since patient is very concerned (although not recommended) Assessment & Plan (05/21/2024 6:14 AM EDT): Recurrent symptoms Venous study in December 2022 was normal; no venous insufficiency Continue low sodium diet Consider prn diuretic with caution since patient is very concerned (although not recommended) Assessment & Plan (11/21/2022 4:04 PM EDT): Recurrent symptoms - will evaluate with Venous Study for Varicose Veins or Venous Insufficiency Chronic pain of right ankle 09/20/2022 Assessment & Plan (09/19/2024 6:19 PM EST): - previously left leg pain; likely overuse by compensating for left leg - referred to physical therapy, did not received referral letter, was given letter today and contact information to reschedule therapy - continue judicious use of APAP Assessment & Plan (11/21/2022 3:55 PM EDT): - previously left leg pain; likely overuse by compensating for left leg - referred to physical therapy, did not received referral letter, was given letter today and contact information to reschedule therapy - continue judicious use of ibuprofen Assessment & Plan (09/20/2022 1:49 PM EST): - previously left leg pain; likely overuse by compensating for left leg - refer to physical therapy - continue judicious use of ibuprofen History of kidney stones 09/20/2022 Assessment & Plan (09/19/2024 6:13 PM EST): - previously evaluated by urologist - most recent US in December 2020 showed: Gallstones. Question small right renal stone. Small left renal cyst. Assessment & Plan (09/14/2023 3:40 PM EST): - previously evaluated by urologist - most recent US in December 2020 showed: Gallstones. Question small right renal stone. Small left renal cyst. Right wrist pain 09/12/2022 Assessment & Plan (09/19/2024 6:13 PM EST): - see R hand pain Assessment & Plan (05/13/2024 3:55 PM EDT): - see R hand pain Assessment & Plan (09/14/2023 3:42 PM EST): - see R hand pain Assessment & Plan (11/21/2022 3:56 PM EDT): -EMG / NCT was normal on 06/23/20 -MRI in 2016 shows: Mild degenerative signal in the scapholunate ligament with no discrete tear; Mild extensor carpi ulnaris tendinosis; Small volar and dorsal ganglion cysts. -s/p right wrist arthroscopy with TFCC debridement and repair by Dr. Artis on 11/24/20 -Referred to Occupational Therapy but patient did not receive letter and missed her appointment. Given letter and contact information to reschedule Assessment & Plan (09/20/2022 1:46 PM EST): -EMG / NCT was normal on 06/23/20 -MRI in 2016 shows: Mild degenerative signal in the scapholunate ligament with no discrete tear; Mild extensor carpi ulnaris tendinosis; Small volar and dorsal ganglion cysts. -s/p right wrist arthroscopy with TFCC debridement and repair by Dr. Artis on 11/24/20 -Will refer to OT for her hand Right knee pain 09/12/2022 Assessment & Plan (09/19/2024 6:19 PM EST): - Previously she had left knee pain. Likely overuse by compensating left leg pain - Patient has tried PT - Continue judicious use of APAP - knee X-ray was ordered in 2022, not done yet Assessment & Plan (05/13/2024 3:55 PM EDT): - Previously she had left knee pain. Likely overuse by compensating left leg pain - referred to physical therapy, did not received referral letter, was given letter today and contact information to reschedule therapy - Continue judicious use of ibuprofen - If no improvement, evaluate with X-ray Assessment & Plan (11/21/2022 3:56 PM EDT): - Previously she had left knee pain. Likely overuse by compensating left leg pain - referred to physical therapy, did not received referral letter, was given letter today and contact information to reschedule therapy - Continue judicious use of ibuprofen - If no improvement, evaluate with X-ray Assessment & Plan (09/20/2022 1:49 PM EST): - Previously she had left knee pain. Likely overuse by compensating left leg pain - Refer to PT - Continue judicious use of ibuprofen - If no improvement, evaluate with X-ray Right hand pain 09/12/2022 Assessment & Plan (09/19/2024 6:14 PM EST): -EMG / NCT was normal on 06/23/20 and on 06/11/24 -MRI in 2016 shows: Mild degenerative signal in the scapholunate ligament with no discrete tear; Mild extensor carpi ulnaris tendinosis; Small volar and dorsal ganglion cysts. -s/p right wrist arthroscopy with TFCC debridement and repair by Dr. Artis on 11/24/20 -Referred to Occupational Therapy but patient had a difficulty finding time to go to PT. Assessment & Plan (05/13/2024 3:55 PM EDT): -EMG / NCT was normal on 06/23/20 -MRI in 2016 shows: Mild degenerative signal in the scapholunate ligament with no discrete tear; Mild extensor carpi ulnaris tendinosis; Small volar and dorsal ganglion cysts. -s/p right wrist arthroscopy with TFCC debridement and repair by Dr. Artis on 11/24/20 -Referred to Occupational Therapy but patient had a difficulty finding time to go to PT. Assessment & Plan (09/14/2023 3:42 PM EST): -EMG / NCT was normal on 06/23/20 -MRI in 2016 shows: Mild degenerative signal in the scapholunate ligament with no discrete tear; Mild extensor carpi ulnaris tendinosis; Small volar and dorsal ganglion cysts. -s/p right wrist arthroscopy with TFCC debridement and repair by Dr. Artis on 11/24/20 -Referred to Occupational Therapy but patient had a difficulty finding time to go to PT. Assessment & Plan (11/21/2022 3:57 PM EDT): -EMG / NCT was normal on 06/23/20 -MRI in 2015 shows: Mild degenerative signal in the scapholunate ligament with no discrete tear; Mild extensor carpi ulnaris tendinosis; Small volar and dorsal ganglion cysts. -s/p right wrist arthroscopy with TFCC debridement and repair by Dr. Artis on 11/24/20 -Referred to Occupational Therapy but patient did not receive letter and missed her appointment. Given letter and contact information to reschedule Assessment & Plan (09/12/2022 2:06 PM EST): -EMG / NCT was normal on 06/23/20 -MRI in 2015 shows: Mild degenerative signal in the scapholunate ligament with no discrete tear; Mild extensor carpi ulnaris tendinosis; Small volar and dorsal ganglion cysts. -s/p right wrist arthroscopy with TFCC debridement and repair by Dr. Artis on 11/24/20 History of tympanostomy tube placement 8 Chronic depression 03/29/2016 Assessment & Plan (09/24/2024 5:38 AM EST): - with anxiety symptoms - PHQ9 score 21 and GAD7 score 21 on 09/18/24. Patient denies SI or plan. - Continue counseling with current S provider: Naomi Weiner [address] - Previously tried venlafaxine and hydroxyzine, which she self-discontinued - She is prescribed propranolol for anxiety (patient requested in May 2024), - She contracted her safety today. She has a crisis number and has her long-term therapist. Assessment & Plan (06/20/2024 11:17 AM EST): - with anxiety symptoms - Continue counseling with current S provider: Naomi Weiner [address] - Previously tried venlafaxine and hydroxyzine, which she self-discontinued - She is requesting propranolol, will prescribe as patient requested Assessment & Plan (09/09/2023 6:40 PM EST): - Continue counseling with current S provider: Naomi Weiner [address] - Restart venlafaxine - Restart hydroxyzine prn Assessment & Plan (09/20/2022 1:59 PM EST): - Continue counseling with current [facility] provider: Naomi Weiner [address] - Restart venlafaxine - Restart hydroxyzine prn Benign paroxysmal positional vertigo 08/04/2015 Hypertrophy of tonsils 10/30/2013 Chronic headache disorder 08/14/2012 Assessment & Plan (09/19/2024 6:12 PM EST): - multifactorial - tension, vestibular, sinus, and migraine - following with [facility] neurology, last seen in Apr 2024 - most recent brain imaging in November 2022 normal - Continue multimodal approach for headaches management, small frequent meals, adequate hydration, stress management, regular exercise as tolerated. - Ensure adequate quality sleep, consider sleep medicine clinic if needed - Continue limiting caffeine products to no more than 2 cups/day. - Limit use of OTC analgesics to 3 times per week to avoid rebound headaches - Currently prescribed Nurtec 75 mg, 1 tablet q. 20 to 4 hours as needed for breakthrough migrainous headaches - Previously prescribed lamotrigine 100 mg twice daily preventatively for the headaches by neurologist; patient self-discontinued. Recommended to consult with neurologist before discontinuing. Per neurologist, patient has tried and failed multiple oral preventatives, propranolol, topiramate, nortriptyline, trazodone, Lamictal, baclofen - Previously prescribed eletriptan 20mg prn , max 2 tabs / 24hrs. no more than 3 doses in a week. No longer taking. - Per neurologist, she was not comfortable doing self inject preventatively for the migraines such as Aimovig Emgality or Ajovy - Encouraged to follow recommendations by neurologist - She is prescribed propranolol for anxiety, not for migraine preventative purpose since it was not effective for migraine prophylaxis Assessment & Plan (05/21/2024 6:22 AM EDT): - multifactorial - tension, vestibular, sinus, and migraine - following with [facility] neurology, last seen in Apr 2024 - most recent brain imaging in November 2022 normal - Continue multimodal approach for headaches management, small frequent meals, adequate hydration, stress management, regular exercise as tolerated. - Ensure adequate quality sleep, consider sleep medicine clinic if needed - Continue limiting caffeine products to no more than 2 cups/day. - Limit use of OTC analgesics to 3 times per week to avoid rebound headaches - Currently prescribed Nurtec 75 mg, 1 tablet q. 20 to 4 hours as needed for breakthrough migrainous headaches - Previously prescribed lamotrigine 100 mg twice daily preventatively for the headaches by neurologist; patient self-discontinued. Recommended to consult with neurologist before discontinuing. Per neurologist, patient has tried and failed multiple oral preventatives, propranolol, topiramate, nortriptyline, trazodone, Lamictal, baclofen - Previously prescribed eletriptan 20mg prn , max 2 tabs / 24hrs. no more than 3 doses in a week. No longer taking. - Per neurologist, she was not comfortable doing self inject preventatively for the migraines such as Aimovig Emgality or Ajovy - Encouraged to follow recommendations by neurologist - She is going to restart propranolol for anxiety, not for migraine preventative purpose since it was not effective for migraine prophylaxis Assessment & Plan (09/14/2023 3:37 PM EST): - multifactorial - tension, vestibular, sinus, and migraine - following with [facility] neurology, last seen in October 2022 - most recent brain imaging in November 2022 normal - Continue multimodal approach for headaches management, small frequent meals, adequate hydration, stress management, regular exercise as tolerated.?? - Ensure adequate quality sleep, consider sleep medicine clinic if needed - Continue limiting caffeine products to no more than 2 cups/day. - Limit use of OTC analgesics to 3 times per week to avoid rebound headaches - Previously prescribed lamotrigine 100 mg twice daily preventatively for the headaches by neurologist; patient self-discontinued. Recommended to consult with neurologist before discontinuing. - Previously prescribed eletriptan ?? 20mg ?prn??, max 2 tabs / 24hrs. no more than 3 doses in a week. No longer taking. - Previously prescribed Reglan 5mg ??prn?for nausea related to Migraines; patient is no longer taking - Encouraged to follow up with neurologist Migraine 08/14/2012 Assessment & Plan (09/19/2024 6:16 PM EST): Currently following with [facility] neurology service, last seen on 10/26/22 -Previously tried medications --Topamax 25 mg qhs - discontinued due to ineffectiveness --propranolol 10 mg bid - discontinued due to ineffectiveness --nortriptyline - discontinued due to ineffectiveness --sumatriptan - adverse reaction --naratriptan - ineffective Imaging study CT in 2012 showed sinusitis. EEG in 2016 - normal per neurologist MRI on 11/26/22 - normal, Current working Dx: Mixed headaches Migraine without aura versus vestibular migraines versus chronic tension type headache. -Continue multimodal approach for headaches management, small frequent meals, adequate hydration, stress management, regular exercise as tolerated. -Ensure adequate quality sleep and work on sleep related difficulties with PCP or with sleep medicine clinic if needed -Continue limiting caffeine products to no more than 2 cups/day. -Recommend continue limiting OTC analgesic to no more than 3 doses per week to avoid rebound headaches -Keep headaches diary -Patient self-discontinued Lamictal 100 mg bid, eletriptan 20 mg prn, and metoclopramide -Encouraged to schedule appointment with neurologist Assessment & Plan (05/13/2024 3:55 PM EDT): Currently following with [facility] neurology service, last seen on 10/26/22 -Previously tried medications --Topamax 25 mg qhs - discontinued due to ineffectiveness --propranolol 10 mg bid - discontinued due to ineffectiveness --nortriptyline - discontinued due to ineffectiveness --sumatriptan - adverse reaction --naratriptan - ineffective Imaging study CT in 2012 showed sinusitis. EEG in 2016 - normal per neurologist MRI on 11/26/22 - normal, Current working Dx: Mixed headaches Migraine without aura versus vestibular migraines versus chronic tension type headache. -Continue multimodal approach for headaches management, small frequent meals, adequate hydration, stress management, regular exercise as tolerated. -Ensure adequate quality sleep and work on sleep related difficulties with PCP or with sleep medicine clinic if needed -Continue limiting caffeine products to no more than 2 cups/day. -Recommend continue limiting OTC analgesic to no more than 3 doses per week to avoid rebound headaches -Keep headaches diary -Patient self-discontinued Lamictal 100 mg bid, eletriptan 20 mg prn, and metoclopramide -Encouraged to schedule appointment with neurologist Assessment & Plan (09/14/2023 3:44 PM EST): Currently following with [facility] neurology service, last seen on 10/26/22 -Previously tried medications --Topamax 25 mg qhs - discontinued due to ineffectiveness --propranolol 10 mg bid - discontinued due to ineffectiveness --nortriptyline - discontinued due to ineffectiveness --sumatriptan - adverse reaction --naratriptan - ineffective Imaging study CT in 2012 showed sinusitis. EEG in 2016 - normal per neurologist MRI on 11/26/22 - normal, Current working Dx: Mixed headaches Migraine without aura versus vestibular migraines versus chronic tension type headache. -Continue multimodal approach for headaches management, small frequent meals, adequate hydration, stress management, regular exercise as tolerated. -Ensure adequate quality sleep and work on sleep related difficulties with PCP or with sleep medicine clinic if needed -Continue limiting caffeine products to no more than 2 cups/day. -Recommend continue limiting OTC analgesic to no more than 3 doses per week to avoid rebound headaches -Keep headaches diary -Patient self-discontinued Lamictal 100 mg bid, eletriptan 20 mg prn, and metoclopramide -Encouraged to schedule appointment with neurologist Assessment & Plan (11/21/2022 3:52 PM EDT): Currently following with [facility] neurology service, last seen on 10/26/22 -Previously tried medications --Topamax 25 mg qhs - discontinued due to ineffectiveness --propranolol 10 mg bid - discontinued due to ineffectiveness --nortriptyline - discontinued due to ineffectiveness --sumatriptan - adverse reaction --naratriptan - ineffective Imaging study CT in 2012 showed sinusitis. EEG in 2016 - normal per neurologist MRI in 2019 - normal, another MRI is scheduled for 11/26/22 Current working Dx: Mixed headaches Migraine without aura versus vestibular migraines versus chronic tension type headache. -Continue multimodal approach for headaches management, small frequent meals, adequate hydration, stress management, regular exercise as tolerated. -Ensure adequate quality sleep and work on sleep related difficulties with PCP or with sleep medicine clinic if needed -Continue limiting caffeine products to no more than 2 cups/day. -Recommend continue limiting OTC analgesic to no more than 3 doses per week to avoid rebound headaches -Keep headaches diary -Continue Lamictal 100 mg bid -Continue eletriptan 20mg prn , max 2 tabs / 24hrs. -Continue Reglan 5mg prn for nausea related to Migraines Assessment & Plan (09/20/2022 1:58 PM EST): Currently following with [facility] neurology service -Previously tried medications --Topamax 25 mg qhs - discontinued due to ineffectiveness --propranolol 10 mg bid - discontinued due to ineffectiveness --nortriptyline - discontinued due to ineffectiveness --sumatriptan - adverse reaction --naratriptan - ineffective Imaging study CT in 2011 showed sinusitis. EEG in 2015 - normal per neurologist MRI in 2019 - normal Current working Dx: Mixed headaches Migraine without aura versus vestibular migraines versus chronic tension type headache. -Continue multimodal approach for headaches management, small frequent meals, adequate hydration, stress management, regular exercise as tolerated. -Ensure adequate quality sleep and work on sleep related difficulties with PCP or with sleep medicine clinic if needed -Continue limiting caffeine products to no more than 2 cups/day. -Recommend continue limiting OTC analgesic to no more than 3 doses per week to avoid rebound headaches -Keep headaches diary -Continue Lamictal 100 mg bid -Continue eletriptan 20mg prn , max 2 tabs / 24hrs. -Continue Reglan 5mg prn for nausea related to Migraines Obesity 08/14/2012 Assessment & Plan (09/19/2024 6:16 PM EST): - Started Wegovy in May 2024 - Continue GLP1RA, still titrating up - Continue lifestyle modification effort Assessment & Plan (05/21/2024 6:14 AM EDT): - patient requests GLP1RA Developmental academic disorder 02/05/2012 Resolved Problems Problem Noted Date Diagnosed Date Resolved Date Strep throat 11/21/2022 03/14/2023 Assessment & Plan (11/21/2022 3:58 PM EDT): Dx: 10/31/22, treated with antibiotics - Patient was tachycardiac and dehydrated and seen in the emergency department - symptoms have resolved Dehydration 11/21/2022 03/15/2023 Assessment & Plan (11/21/2022 4:02 PM EDT): Received IV hydration in emergency department - symptoms resolved Vertigo 11/10/2015 03/15/2023 Blood in urine 08/14/2012 09/20/2022 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 03/15/2023 Encounters Date Type Department Care Team Description 09/18/2024 10:30 AM EST Office Visit [facility] [address] [place] [address] Kassy Land MD Routine general medical examination at a health care facility (Primary Dx); Elevated BP without diagnosis of hypertension; Chronic nonintractable headache, unspecified headache type; Class 2 severe obesity due to excess calories with serious comorbidity and body mass index (BMI) of 35.0 to 35.9 in adult ([facility]); Sleep disturbance; Migraine without status migrainosus, not intractable, unspecified migraine type; Chronic depression; Benign paroxysmal positional vertigo, unspecified laterality; Dietary counseling; Exercise counseling; History of kidney stones; Right wrist pain; Right hand pain; Right knee pain, unspecified chronicity; Localized swelling of both lower legs; Chronic pain of right ankle; Urinary incontinence, unspecified type; Encounter for well woman exam with routine gynecological exam; Chronic pain syndrome; Left upper quadrant pain 09/18/2024 Travel 09/15/2024 Refill [facility] [address] [place] [address] Kassy aLnd MD Class 2 severe obesity due to excess calories with serious comorbidity and body mass index (BMI) of 35.0 to 35.9 in adult ([facility]) 09/04/2024 Patient Outreach [facility] [address] [place] [phone] Kassy Land MD Pre-visit Planning (Pre-visit planning - LVM ) 08/15/2024 Refill [facility] [address] [place], [place] [phone] Kassy Land MD Class 2 severe obesity due to excess calories with serious comorbidity and body mass index (BMI) of 35.0 to 35.9 in adult ([facility]) from Last 3 Months Immunizations Name Administration Dates Next Due Hep A, Adult 12/04/2011,05/29/2011 Influenza injectable quadriv alent IIV4 with preservative 09/20/2017,04/26/2015 Influenza injectable quadriv alent preservative free 09/12/2022,05/09/2021,05/26/2020,2019,08/19/2018,07/20/2016,10/29/2014 Influenza, IIV3, injectable 05/29/2011 Influenza, Split (incl. lore fied surface antigen) 05/15/2013,08/14/2012 Influenza, seasonal, injecta ble, preservative free 05/13/2024 Moderna Covid-19 Vaccine 12+ 12/16/2020,11/19/19 21 Pfizer Covid-19 Vaccine 12+ 12/16/2020 TD (adult), 2 Lf tetanus tox oid, preservative free, adsorbed 09/11/2006 Tdap 01/10/2022,12/04/2011 Family History Medical History Relation Name Comments Diabetes type II Maternal Grandfather Hypertension Mother Relation Name Status Comments Maternal Grandfather Mother Social History Tobacco Use Types Packs/Day Years Used Date Smoking Tobacco: Never Passive Smoke Exposure: Never Smokeless Tobacco: Never Tobacco Cessation:Counseling Given: Not Answered Depression Answer Date Recorded Patient Health Questionnaire-9 Score 21 09/18/2024 Patient Health Questionnaire-9 Score 21 09/18/2024 Last PHQ-9: Questionnaire Data Not on file 0 09/18/2024 Housing Stability Answer Date Recorded What is your housing situation today? I have jose tello 09/18/[address] you li ve. Do you have problems with any of the following? None of the above 09/18/2024 Food Insecurity Answer Date Recorded Within the past 12 months, y ou worried that your food would run out before you got money to buy more: Never True 09/18/2024 Within the past 12 months,th e food you bought just didn't last and you didn't have enough money to get more: Never True 01/2025 Transportation Answer Date Recorded In the past 12 months, has l ack of transportation kept you from medical appts, meetings, work or from getting things needed for daily living? No 09/18/2024 Utilities Answer Date Recorded In the past 12 months, has t he electric, gas, oil or water company threatened to shut off services in your home? No 09/18/2024 Depression Answer Date Recorded Patient Health Questionnaire-2 Score 6 09/18/2024 Internet Access Answer Date Recorded Internet Access Q1 Yes 09/18/2024 Internet Access Q2 Not on file 09/18/2024 Comments Unknown Sex and Gender Information Value Date Recorded Sex Assigned at Female 06/12/2022 10:16 AM EDT Legal Sex Female 10:16 AM EDT Gender Identity Female 06/12/2022 10:16 AM EDT Sexual Orientation Choose not to disclose 2021 10:16 AM EDT Last Filed Vital Signs Vital Sign Reading Time Taken Comments Blood Pressure 112/71 09/18/2024 11:09 AM EST Pulse 78 09/18/2024 11:09 AM EST Temperature 36.1 ??C (96.9 ??F) 09/18/2024 11:[address] Respiratory Rate 19 09/18/2024 11:09 AM EST Oxygen Saturation 98% 09/18/2024 11:09 AM EST Inhaled Oxygen Concentration - - Weight 78.3 kg (172 lb 9.6 oz) 09/18/2024 11:09 AM EST Height 149.8 cm (4' 10.96 ) 09/18/2024 11:09 AM EST Body Mass Index 34.91 09/18/2024 11:09 AM EST Plan of Treatment Upcoming Encounters Date Type Department Care Team (Late st Contact Info) Description 10/31/2024 11:30 AM EDT Office Visit [facility] [address] [place] [address] Rupa Carrillo MD [address] [place] [address] Health Maintenance Due Date Last Done Comments HIV Screening 1983 Hepatitis C Screening 2001 Hepatitis B Vaccines (1 of 3 - 19+ 3-dose series) 2002 Pap Smear 2004 Cervical Cancer Screening 2013 HPV/Cotest 2013 COVID-19 Vaccine ( season) 2024 12/16/2020, 12/16/2020, 11/25/2020, Additional history exists Depression Monitoring (PHQ-9) 03/18/2025 09/18/2024, 09/18/2024 Alcohol/Substance Use Screening 09/18/2025 09/18/2024 Depression Screening 09/18/2025 09/18/2024, 09/18/19 25 SDOH Screening 09/18/2025 09/18/2024 Tobacco Screening 09/19/2025 09/19/2024 Mammogram 09/20/2025 09/20/2023 Family Planning (PISQ) 09/24/2025 09/24/2024 Lipid Panel 05/14/2029 05/14/2024 DTaP/Tdap/Td Vaccines (3 - Td or Tdap) 01/11/2032 01/10/2022, 12/04/2011, 09/11/2006 Zoster Vaccines (1 of 2) 2033 RSV Patients and Patients Aged 60 years or older (1 - 1-dose 75+ series) 2058 Hepatitis A Vaccines Aged Out 12/04/2011, 05/29/20 11 No longer eligible based on patient's age to complete this topic Influenza Vaccine Completed 05/13/2024, , 05/09/2021, Additional history exists HIB Vaccines Aged Out No longer eligi ble based on patient's age to complete this topic HPV Vaccines Aged Out No longer eligi ble based on patient's age to complete this topic IPV Vaccines Aged Out No longer eligi ble based on patient's age to complete this topic Meningococcal Vaccine Aged Out No morgan bharati eligible based on patient's age to complete this topic Pneumococcal Vaccine: Pediatrics (0 to 5 Years) and At-Risk Patients (6 to 49) Years) Aged Out No longer eligible based on patient's age to complete this topic RSV under 20 months Aged Out No longe r eligible based on patient's age to complete this topic Rotavirus Vaccines Aged Out No longer eligible based on patient's age to complete this topic Procedures Procedure Name Priority Date/Time Associated Diagnosis Comments LIPID PANEL WITH REFLEX TO DIRECT LDL Routine 05/14/2024 11:11 AM EDT Elevated BP without diagnosis of hypertension BI MAMMOGRAM SCREENING TOMOSYNTHESIS BILATERAL Routine 09/20/2023 8:29 AM EST from Last 3 Months or Most Recently Relevant to Health Maintenance Results * (ABNORMAL) Lipid Panel with Reflex to Direct LDL (05/14/2024 11:11 AM EDT) Triglycerides 162(H) <150 mg/dL [facility] Comment:Desirable Triglyceri de: less than 150 mg/dLBorderline High Triglyceride 150-199 mg/dLHigh Triglyceride: 200-499 mg/dLVery High Triglyceride: greater than or equal to 5OO mg/dL Cholesterol 175 <200 mg/dL [facility] Comment:Desirable Cholestero l: less than 200 mg/dLBorderline High Cholesterol: 200-239 mg/dLHigh Cholesterol: greater than 239 mg/dL LDL Cholesterol Calculated 101(H) <100 mg/dL [facility] Comment:Desirable LDL: less than 100 mg/dLNear Optimal/Above Optimal LDL: 110- 129 mg/dLBorderline High LDL: 130-159 mg/dLHigh LDL: 160-189 mg/dLVery High LDL: greater than or equal to 190 mg/dL HDL Cholesterol 42 >40 mg/dL [facility] Comment:Desirable HDL: great er than 40 mg/dL Note: This HDL assay may give artificially low results in patients with liver disease. Blood 05/14/2024 11:1 1 AM EDT 05/14/2024 1:41 PM EDT us Kassy Land MD LAB BLOOD ORDERABLES Final Resul t [facility] [address] [place], [place] [phone] * BI Mammogram Screening Tomosynthesis Bilateral (09/20/2023 8:29 AM EST) Anatomical Region Laterality Modality Breast Bilateral Mammography 09/20/2023 8:29 AM EST Narrative 10/13/2023 8:29 PM EST ? [facility] ? [address] ?[place] [address] ? Mammography Report ? Signed ? Patient: Felton,Della ?MR#: [id number] ? : 1985 ?Acct:[id number] ? Age/Sex: 38 / F ?ADM Date: 09/20/23 ? Loc: HO.MAMMO ? Attending Dr: Kassy Land MD ? Ordering Physician: Kassy Land MD ?Results: 1Negative ? Date of Service: 09/20/23 ?Follow Up: 1 Year From Orig ?? inal Mammogram ? Procedure(s): MM tomosynthesis screening BI ?? Accession Number(s): [id number] ? cc: Kassy Land MD ? EXAMINATION: ?? MM SCREENING DIGITAL BREAST TOMOSYNTHESIS, BILATERAL ? CLINICAL INFORMATION: ? Screening. Asymptomatic. ? COMPARISON: ?? Mammography: This is a baseline mammogram. ? TECHNIQUE: ?? Digital breast tomosynthesis is performed in both the craniocaudal and ?? mediolateral oblique views along with computer-aided detection (CAD). ?? Synthesized 2D images are generated from the tomosynthesis. ? FINDINGS: ?? There are scattered areas of fibroglandular density (ACR BI-RADS breast ?? composition Category b). ? There are no significant masses, abnormal calcifications, or other ?? abnormalities. ? MM/MM tomosynthesis screening BI ?? IMPRESSION: ?? No mammographic evidence of malignancy. ? ASSESSMENT: ? BI-RADS BI-RADS 1 - Negative ? RECOMMENDATION: ?? Routine annual mammography screening. ? 1 year F/U ? This examination should not preclude the clinical evaluation of a ?? suspicious palpable abnormality. ? This patient's information was entered into a reminder system with a ?? target due date for their next mammogram. ? Dictated By: ?Anum Fitzpatrick MD ? Signed By: ?<Electronically signed by Anum Fitzpatrick MD in OV> ? 10/13/232024 ? DD/ 8 ? TD/TT: ? Systems Architect: ? Procedure Note Nereida, Image - 10/13/2023 [facility] [address] [place], [place] [address] Mammography Report Signed Patient: Delilah FeltonR#: [id number] : 1985Acct:[id number] Age/Sex: 38 / FADM Date: 09/20/23 Loc: [facility] Attending Dr: Kassy Land MD Ordering Physician: Kassy Land MDResults: 1Negative Date of Service: 09/20/23Follow Up: 1 Year From Orig inal Mammogram Procedure(s): MM tomosynthesis screening BI Accession Number(s): [id number] cc: Kassy Land MD EXAMINATION: MM SCREENING DIGITAL BREAST TOMOSYNTHESIS, BILATERAL CLINICAL INFORMATION: Screening. Asymptomatic. COMPARISON: Mammography: This is a baseline mammogram. TECHNIQUE: Digital breast tomosynthesis is performed in both the craniocaudal and mediolateral oblique views along with computer-aided detection (CAD). Synthesized 2D images are generated from the tomosynthesis. FINDINGS: There are scattered areas of fibroglandular density (ACR BI-RADS breast composition Category b). There are no significant masses, abnormal calcifications, or other abnormalities. MM/MM tomosynthesis screening BI IMPRESSION: No mammographic evidence of malignancy. ASSESSMENT: BI-RADS BI-RADS 1 - Negative RECOMMENDATION: Routine annual mammography screening. 1 year F/U This examination should not preclude the clinical evaluation of a suspicious palpable abnormality. This patient's information was entered into a reminder system with a target due date for their next mammogram. Dictated By: Anum Fitzpatrick MD Signed By: <Electronically signed by Anmu Fitzpatrick MD in OV> 10/13/232024 DD/ 8 TD/TT: Systems Architect: Kassy Land MD IMG BI PROCEDURES Final Result from Last 3 Months or Most Recently Relevant to Health Maintenance Insurance [facility] Care Teams Process Development Engineer Relationship Specialty Start Date End Date Kassy Land MD [address] [place] [phone] PCP - General Family Medicine 08/13/18
--- OUTSIDE RECORDS SUMMARY | 2024-09-25 08:29 | XMS_ITS | Encounter Summary ---
Author Organization [employer] Address [address] [place] [address] Care Team Providers Care Chair Inspector Name Role Phone Kassy Land MD Primary Care Provider [phone] Reason for Visit * Reason Onset Date Comments chart prep 09/15/2024 Encounter Details Date Type Department Care Team (Late st Contact Info) Description 09/15/2024 Refill [facility] [address] [place], [place] [phone] Kassy Land MD [address] [place] [address] Class 2 severe obesity due to excess calories with serious comorbidity and body mass index (BMI) of 35.0 to 35.9 in adult (CMS/HCC) Social History Tobacco Use Types Packs/Day Years Used Date Smoking Tobacco: Never Passive Smoke Exposure: Never Smokeless Tobacco: Never Depression Answer Date Recorded Patient Health Questionnaire-9 Score 2 11/21/2022 Housing Stability Answer Date Recorded What is your housing situation today? I have jose tello 06/18/[address] you li ve. Do you have problems with any of the following? None of the above 06/18/2023 Food Insecurity Answer Date Recorded Within the past 12 months, y ou worried that your food would run out before you got money to buy more: Never True 06/18/2023 Within the past 12 months,th e food you bought just didn't last and you didn't have enough money to get more: Never True 11/ 01/2023 Transportation Answer Date Recorded In the past 12 months, has l ack of transportation kept you from medical appts, meetings, work or from getting things needed for daily living? No 06/18/2023 Utilities Answer Date Recorded In the past 12 months, has t he electric, gas, oil or water company threatened to shut off services in your home? No 06/18/2023 Depression Answer Date Recorded Patient Health Questionnaire-2 Score 0 11/21/2022 Comments Unknown Sex and Gender Information Value Date Recorded Sex Assigned at Female 06/12/2022 10:16 AM EDT Legal Sex Female 10:16 AM EDT Gender Identity Female 06/12/2022 10:16 AM EDT Sexual Orientation Choose not to disclose 2021 10:16 AM EDT documented as of this encounter Miscellaneous Notes * Telephone Encounter - Manju Beverly [place] - 09/16/2024 9:02 AM EST .Chart Prep Labs: not applicable Images: not applicable Vaccines due: Covid Due and Hep B Due Referrals: Sleep Medicine pending ma requsting appt date Screenings: PAP Overdue care gaps: Sbirt, SDOH, and PHQ-9 documented in this encounter Plan of Treatment Upcoming Encounters Date Type Department Care Team (Late st Contact Info) Description 10/31/2024 11:30 AM EDT Office Visit [facility] [address] [place] [phone] Rupa Carrillo MD [address] [place] [address] documented as of this encounter Visit Diagnoses Diagnosis Class 2 severe obesity due to excess calories with serious comorbidity and body mass index (BMI) of 35.0 to 35.9 in adult (CMS/HCC) documented in this encounter Additional Health Concerns Assessment Noted Time PHQ-9 Depression Total Score: 2 11/22/19 23 3:16 PM EDT documented as of this encounter Care Teams Chair Inspector Relationship Specialty Start Date End Date Kassy Land MD [address] [place] [address] PCP - General Family Medicine 08/13/18 documented as of this encounter
--- OUTSIDE RECORDS SUMMARY | 2024-09-25 08:29 | XMS_ITS | Encounter Summary ---
Author Organization [employer] Address [address] [place] [address] Care Team Providers Care Industrial Paramedic Name Role Phone Kassy Land MD Primary Care Provider [phone] Reason for Visit * Reason Comments Pre-visit Planning Pre-visit planning - LVM Encounter Details Date Type Department Care Team ([facility] st Contact Info) Description 09/04/[address] [facility] [address] [place], [place] [phone] Kassy Land MD [address] [place], [place] [phone] Pre-visit Planning (Pre-visit planning - LVM ) Social History Tobacco Use Types Packs/Day Years [...] enough money to get more: Never True 01/2023 Transportation Answer Date Recorded In the [...] AM EDT documented as of this encounter Progress Notes * Danii Gutierrez - 09/04/2024 12:42 PM EST BLANCA Alvarez placed outbound call to patient to complete pre-visit planning. No answer at this time. Patient name and were not confirmed. CC left voicemail requesting return call. Direct contact information provided. documented in this encounter Plan of Treatment Upcoming Encounters Date Type Department Care Team (Late st Contact Info) Description 10/31/2024 11:[address]T [address] [facility] [address] [place] [address] Rupa Carrillo MD [address] [place] [address] documented as of this encounter Visit Diagnoses Not on filedocumented in this encounter Additional Health Concerns Assessment Noted Time PHQ-9 Depression Total Score: 2 11/22/19 23 3:16 PM EDT documented as of this encounter Care Teams Industrial Paramedic Relationship Specialty Start Date End Date Kassy Land MD [address] [place] [address] PCP - General Family Medicine 08/13/18 documented as of this encounter
--- OUTSIDE RECORDS SUMMARY | 2024-09-25 08:29 | XMS_ITS | Encounter Summary ---
Author Organization [employer] Address [address] [place] [address] Care Team Providers Care Engraver Copperplate Name Role Phone Kassy Land MD Primary Care Provider [phone] Encounter Details Date Type Department Care Team (Latest Contact Info) Description 09/18/2024 Travel Social History Tobacco Use Types Packs/Day Years [...] AM EDT documented as of this encounter Plan of Treatment Upcoming Encounters Date Type Department Care Team (Late st Contact Info) Description 10/31/2024 11:30 AM EDT Office Visit [facility] [address] [place] [address] Rupa Carrillo MD [address] [place] [address] documented as of this encounter Visit Diagnoses Not on filedocumented in this encounter Additional Health Concerns Assessment Noted Time PHQ-9 Depression Total Score: 21 025 1:48 PM EST documented as of this encounter Care Teams Engraver Copperplate Relationship Specialty Start Date End Date Kassy Land MD [address] [place] [phone] PCP - General Family Medicine 08/13/18 documented as of this encounter
--- OUTSIDE RECORDS SUMMARY | 2024-09-25 08:30 | XMS_ITS | Encounter Summary ---
Author Organization [employer] Address [address] [facility] [address] [place] [address] Care Team Providers Care V Groove Cutter Name Role Phone Kassy Land MD Primary Care Provider [phone] Reason for Referral * Imaging (Routine) - Authorized Specialty Diagnoses / Procedures Referred By Leo t Referred To Contact Radiology Diagnoses History of kidney stones Left upper quadrant pain Procedures US ABDOMINAL DOPPLER COMP Kassy Land MD [address] [place] [address] Phone: tel: fax: [address] Phone: tel: fax: Referral ID Status Reason Start Date Expiration Date V isits Requested Visits Authorized [id number] Authorized 09/19/2024 09/19/2025 1 1 * Imaging (Routine) - Authorized Specialty Diagnoses / Procedures Referred By Leo t Referred To Contact Radiology Diagnoses Left upper quadrant pain Procedures US ABDOMINAL WALL, SOFT TISSUE LEFT Kassy Land MD [address] [place] [address] Phone: tel: fax: [address] Phone: tel: fax: Referral ID Status Reason Start Date Expiration Date V isits Requested Visits Authorized [id number] Authorized 09/19/2024 09/19/2025 1 1 * Consultation (Routine) - Closed Specialty Diagnoses / Procedures Referred By Contdaniel t Referred To Contact Obstetrics and Gynecology Diagnoses Urinary incontinence, unspecified type Encounter for well woman exam with routine gynecological exam Kassy Land MD [address] [place] [phone] Phone: tel: fax: [facility] Referral ID Status Reason Start Date Expiration Date V isits Requested Visits Authorized [id number] Closed Specialty Services Required 09/19/2024 09/19/2025 1 1 Encounter Details Date Type Department Care Team (Latest Contact Info) Description 09/18/2024 10:30 AM EST Office Visit [facility] [address] [place] [phone] Kassy Land MD [address] [place] [phone] Routine general medical examination at a health care facility (Primary Dx); Elevated BP without diagnosis of hypertension; Chronic nonintractable headache, unspecified headache type; Class 2 severe obesity due to excess calories with serious comorbidity and body mass index (BMI) of 35.0 to 35.9 in adult (CMS/[facility]); Sleep disturbance; Migraine without status migrainosus, not [...] Chronic pain syndrome; Left upper quadrant pain Social History Tobacco Use Types Packs/Day Years [...] AM EDT documented as of this encounter Last Filed Vital Signs Vital Sign Reading [...] Mass Index 34.91 09/18/2024 11:09 AM EST documented in this encounter Progress Notes * Kassy Land MD - 09/18/2024 10:30 AM EST Della Felton is a 39 y.o. female who has migraine, chronic back pain, and chronic wrist pain, and patient presents for physical exam. Subjective Our last encounter was 05/13/2024. She reported worsening migraine, wrist pain, and back pain. Elevated BP. Ordered sleep study. Prescribed GLP1RA for weight loss per patient's request. Interval history: 06/11/24. EMG/NCT normal Today: Patient lost 10lbs since last visit and has been using Wegovy 0.5mg. She denies constipation, diarrhea or nausea. She complains of having high levels of stress and anxiety, which she attributes to her son moving out of her house a week ago. Patient is being compliant with most of her medications. She takes her anxiety medication, propranolol and hydroxyzine, on as needed basis. Last time she took was when she had a work conference and had to travel. She states that she is out of a medication for migraine. She reports her last migraine headache wastwo days ago. Patient complains of intermittent leg pain that is triggered after walking long distances or when it's cold outside. She also has noticed her legs get swollen. Pt is due for a dental visit. Patient is due for papsmear. Previously receiving care from [facility]. Past medical history Patient Active Problem List Diagnosis Benign paroxysmal positional vertigo Chronic depression Chronic headache disorder Developmental academic disorder History of tympanostomy tube placement Hypertrophy of tonsils Migraine Obesity Right wrist pain Right knee pain Right hand pain Chronic pain of right ankle History of kidney stones Localized swelling of both lower legs Elevated BP without diagnosis of hypertension Sleep disturbance Chronic pain syndrome Left upper quadrant pain Urinary incontinence Past surgical history: Past Surgical History: Procedure Laterality Date HAND SURGERY Right 11/24/2020 Right wrist arthroscopy with triangular fibrocartilage complex repair Hospitalizations / major illness: Current Outpatient Medications on File Prior to Visit Medication Sig Dispense Refill [DISCONTINUED] Acetaminophen 500 MG capsule Take 2 capsules by mouth every 6 (six) hours. cyclobenzaprine (Flexeril) 5 MG tablet Take 1 or 2 tablets at bedtime as needed for muscle spasm 60tablet 3 hydrOXYzine pamoate (Vistaril) 25 MG capsule Take 1 capsule (25 mg) by mouth every 6 (six) hours ifneeded for anxiety. 30 capsule 1 propranolol (Inderal) 20 MG tablet Take 1 tablet by mouth 30 - 60 minutes prior to anxiety-provoking situation 30 tablet 11 Semaglutide-Weight Management (Wegovy) 1 MG/0.5ML solution auto-injector INJECT ONE PEN (= 1 MG) SUBCUTANEOUSLY ONCE A WEEK 2 mL 0 [DISCONTINUED] Nurtec 75 MG tablet dispersible DISSOLVE 1 TABLET ON THE TONGUE EVERY OTHER DAY NEEDED FOR MIGRAINE HEADACHE DISSOLVE ON TONGUE No current facility-administered medications on file prior to visit. Allergies Allergen Reactions Sumatriptan Other reaction(s): ITCHINESS, DIFFICULTY BREATHING Amitriptyline Gabapentin Family history: Family History Problem Relation Name Age of Onset Hypertension Mother Diabetes type II Maternal Grandfather Socially history: - SDOH screen: low - Occupation / School [employer] - Housing: stable - Household members: 2 sons (1 left and currently living with his father) - Tobacco: no - Alcohol: no - Drugs: no - Sexual history: STI screening - Reproductive health history: - Trauma Hx / Adverse Childhood Event: Safety - Driving: yes - Firearm no - Intimate partner Violence Screening: neg Immunizations: Dental Care: Overdue Cancer screening: Breast: October 2023 Colon: average risk, start at age 45 Cervix: overdue, 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 Respiratory: Negative for shortness of breath. Cardiovascular: Positive for leg swelling. Negative for chest pain. Gastrointestinal: Positive for abdominal pain (Painful abdominal bump). Genitourinary: Urinary incontinence Psychiatric/Behavioral: The patient is nervous/anxious. Objective Vitals: 09/18/24 1109 BP: 112/71 Pulse: 78 Resp: 19 Temp: 96.9 ??F (36.1 ??C) TempSrc: Temporal SpO2: 98% Weight: 172 lb 9.6 oz (78.3 kg) Height: 4' 10.96 (1.498 m) Physical Exam Constitutional: General: She is not in acute distress. Appearance: Normal appearance. She is not ill-appearing. HENT: Head: Normocephalic and atraumatic. Mouth/Throat: Mouth: Mucous membranes are moist. Eyes: Extraocular Movements: Extraocular movements intact. Pupils: Pupils are equal, round, and reactive to light. Cardiovascular: Rate and Rhythm: Normal rate and regular rhythm. Heart sounds: No murmur heard. Pulmonary: Effort: Pulmonary effort is normal. No respiratory distress. Breath sounds: Normal breath sounds. No wheezing or rhonchi. Musculoskeletal: Right lower leg: Swelling present. Left lower leg: Swelling present. Skin: General: Skin is warm. Neurological: Mental Status: She is alert. Mental status is at baseline. Psychiatric: Mood and Affect: Mood normal. Results: No results found for this or any previous visit (from the past 18 weeks). Lab Results Component Value Date NA 139 05/14/2024 K 3.9 05/14/2024 CL 108 05/14/2024 CO2 22 05/14/2024 BUN 7 (L) 05/14/2024 CREATININE 0.66 05/14/2024 CRCLCALCPH 100.5 03/17/2024 EGFR >60 05/14/2024 GLUCOSE 80 05/14/2024 TOTALBILIRUB 0.6 05/14/2024 AST 20 05/14/2024 ALT 16 05/14/2024 TOTPROTEIN 7.8 05/14/2024 ALB 4.0 05/14/2024 ALP 76 05/14/2024 Lab Results Component Value Date TRIG 162 (H) 05/14/2024 CHOL 175 05/14/2024 LDLCHOLCAL 101 (H) 05/14/2024 HDL 42 05/14/2024 Lab Results Component Value Date HGBA1C 5.1 05/14/2024 Lab Results Component Value Date WBC 7.8 05/14/2024 HGB 12.8 05/14/2024 HCT 40.4 05/14/2024 PLT 287 05/14/2024 MCV 82.6 05/14/2024 The 10-year ASCVD risk score (Austyn SANTOS, et al., 2019) is: 0.6% Values used to calculate the score: Age: 39 years Sex: Female Is Non- : No Diabetic: No Tobacco smoker: No Systolic Blood Pressure: 112 mmHg Is BP treated: No HDL Cholesterol: 42 mg/dL Total Cholesterol: 175 mg/dL Screening and Health Care Maintenance: PHQ-2/9 Score: Patient Health Questionnaire-9 Score: 21 (09/18/2024 1:48 PM) Patient Health Questionnaire-2 Score: 6 (09/18/2024 1:48 PM) Thoughts that you would be better off or hurting yourself in some way: Several days (09/18/2024 1:48 PM) HIEN-7 Score: HIEN-7 Total Score: 21 (09/18/2024 1:49 PM) Health Maintenance Due Topic Date Due HIV Screening Never done Family Planning (PISQ) Never done Hepatitis C Screening Never done Hepatitis B Vaccines (1 of 3 - 19+ 3-dose series) Never done Cervical Cancer Screening Never done COVID-19 Vaccine () 04/13/2024 Assessment/Plan 1. Routine general medical examination at a health care facility (Primary) 2. Elevated BP without diagnosis of hypertension Assessment & Plan: -Goal BP < 140/90 per JNC-8 and < 130/80 per ACC/AHA guideline (Treatment threshold >=140/90) -Transient vs. Chronic. She does not meet a criteria for Dx at this time. -Continue working on lifestyle modifications -Recommended self-monitoring BP. -Patient is prescribed propranolol for anxiety and GLP1RA for weight loss purpose. These treatment may improve BP. 3. Chronic nonintractable headache, unspecified headache type Assessment & Plan: - multifactorial - tension, vestibular, sinus, and migraine - following with [facility] neurology, last seen in Apr [...] for migraine preventative purpose since it was noteffective for migraine prophylaxis 4. Class 2 severe obesity due to excess calories with serious comorbidity and body mass index (BMI)of 35.0 to 35.9 in adult ([facility]) Assessment & Plan: - Started Wegovy in May 2024 - Continue GLP1RA, still titrating up - Continue lifestyle modification effort 5. Sleep disturbance Assessment & Plan: - continue working on weight loss - due to elevated BP, Hx sinus problem, headache, and insomnia, ordered sleep study. Patient statesshe will reschedule appt 6. Migraine without status migrainosus, not intractable, unspecified migraine type Assessment & Plan: Currently following with [facility] neurology service, last seen on 10/26/22 -Previously tried medications --Topamax 25 mg qhs - discontinued due to ineffectiveness --propranolol 10 mg bid - discontinued due to ineffectiveness --nortriptyline - discontinued due to ineffectiveness --sumatriptan - adverse reaction --naratriptan - ineffective Imaging study CT in 2011 showed sinusitis. EEG in 2016 - normal [...] metoclopramide -Encouraged to schedule appointment with neurologist Orders: - Nurtec 75 MG tablet dispersible; DISSOLVE 1 TABLET ON THE TONGUE EVERY OTHER DAY NEEDED FOR MIGRAINE HEADACHE DISSOLVE ON TONGUE 7. Chronic depression Assessment & Plan: - with anxiety symptoms - PHQ9 score 21 and GAD7 score 21 on 09/18/24. Patient denies SI or plan. - Continue counseling with current [facility] provider: Naomi Weiner [facility] [address] [phone] - Previously tried venlafaxine and hydroxyzine, which she self-discontinued - She is prescribed propranolol for anxiety (patient requested in May 2024), - She contracted her safety today. She has a crisis number and has her long-term therapist. 8. Benign paroxysmal positional vertigo, unspecified laterality 9. Dietary counseling 10. Exercise counseling 11. History of kidney stones Assessment & Plan: - previously evaluated by urologist - most recent US in December 2020 showed: Gallstones. Question small right renal stone. Small left renalcyst. Orders: - US ABDOMINAL DOPPLER COMP; Future - US ABDOMINAL DOPPLER COMP 12. Right wrist pain Assessment & Plan: - see R hand pain 13. Right hand pain Assessment & Plan: -EMG / NCT was normal on 06/23/20 and on 06/11/24 -MRI in 2015 shows: Mild degenerative signal in the scapholunate ligament with no discrete tear; Mild extensor carpi ulnaris tendinosis; Small volar and dorsal ganglion cysts. -s/p right wrist arthroscopy with TFCC debridement and repair by Dr. Artis on 11/24/20 -Referred to Occupational Therapy but patient had a difficulty finding time to go to PT. 14. Right knee pain, unspecified chronicity Assessment & Plan: - Previously she had left knee pain. Likely overuse by compensating left leg pain - Patient has tried PT - Continue judicious use of APAP - knee X-ray was ordered in 2022, not done yet 15. Localized swelling of both lower legs Assessment & Plan: Recurrent symptoms Venous study in December 2022 was normal; no venous insufficiency Continue low sodium diet Consider prn diuretic with caution since patient is very concerned (although not recommended) 16. Chronic pain of right ankle Assessment & Plan: - previously left leg pain; likely overuse by compensating for left leg - referred to physical therapy, did not received referral letter, was given letter today and contact information to reschedule therapy - continue judicious use of APAP 17. Urinary incontinence, unspecified type Assessment & Plan: - Referred to Obstetrics / Gynecology Orders: - Referral to Obstetrics / Gynecology; Future - Referral to Obstetrics / Gynecology 18. Encounter for well woman exam with routine gynecological exam - Referral to Obstetrics / Gynecology; Future - Referral to Obstetrics / Gynecology 19. Chronic pain syndrome Assessment & Plan: - encourage to attend chronic pain group 20. Left upper quadrant pain Assessment & Plan: - tender in LUQ and lower rib - patient reported sensation of mass; US was normal Orders: - US ABDOMINAL WALL, SOFT TISSUE LEFT; Future - US ABDOMINAL DOPPLER COMP; Future - US ABDOMINAL WALL, SOFT TISSUE LEFT - US ABDOMINAL DOPPLER COMP Other orders - Acetaminophen 500 MG capsule; Take 2 capsules (1,000 mg) by mouth every 8 (eight) hours if neededfor mild pain, moderate pain, headaches or fever. - diclofenac sodium 3 % gel; Apply to affected painful areas once or twice daily Allergies Allergen Reactions Sumatriptan Other reaction(s): ITCHINESS, DIFFICULTY BREATHING Amitriptyline Gabapentin Current Outpatient Medications Medication Instructions Acetaminophen 1,000 mg, Oral, Every 8 hours PRN cyclobenzaprine (Flexeril) 5 MG tablet Take 1 or 2 tablets at bedtime as needed for muscle spasm diclofenac sodium 3 % gel Apply to affected painful areas once or twice daily hydrOXYzine pamoate (VISTARIL) 25 mg, Oral, Every 6 hours PRN Nurtec 75 MG tablet dispersible DISSOLVE 1 TABLET ON THE TONGUE EVERY OTHER DAY NEEDED FOR MIGRAINE HEADACHE DISSOLVE ON TONGUE propranolol (Inderal) 20 MG tablet Take 1 tablet by mouth 30 - 60 minutes prior to anxiety-provoking situation Semaglutide-Weight Management (Wegovy) 1 MG/0.5ML solution auto-injector INJECT ONE PEN (= 1 MG) SUBCUTANEOUSLY ONCE A WEEK Follow-up: 4 months or sooner if any problem arises. Scribe Attestation: IJulienne, am serving as a scribe to document services personally performed by Kassy Land MD, based on the patient's response to questions by provider and provides statements to me. documented in this encounter Miscellaneous Notes * Assessment & Plan Note - Julienne Gardner MA - 09/23/2024 10:57 AM EST Associated Problem(s): Urinary incontinence - Referred to Obstetrics / Gynecology * Assessment & Plan Note - Kassy Land MD - 09/19/2024 6:44 PM ESTAssociated Problem(s): Left upper quadrant pain - tender in LUQ and lower rib - patient reported sensation of mass; US was normal * Assessment & Plan Note - Kassy Land MD - 09/19/2024 6:27 PM ESTAssociated Problem(s): Chronic pain syndrome - encourage to attend chronic pain group * Assessment & Plan Note - Kassy Land MD - 09/19/2024 6:17 PM ESTAssociated Problem(s): Chronic depression - with anxiety symptoms - PHQ9 score 21 and GAD7 score 21 on 09/18/24. Patient denies SI or plan. - Continue counseling with current [facility] provider: Naomi Weiner [phone] - Previously tried venlafaxine and hydroxyzine, which she self-discontinued - She is prescribed propranolol for anxiety (patient requested in May 2024), - She contracted her safety today. She has a crisis number and has her long-term therapist. * Assessment & Plan Note - Kassy Land MD - 09/19/2024 6:16 PM ESTAssociated Problem(s): Migraine Currently following with [facility] neurology service, last seen on 10/26/22 [...] metoclopramide -Encouraged to schedule appointment with neurologist * Assessment & Plan Note - Kassy Land MD - 09/19/2024 6:16 PM ESTAssociated Problem(s): Obesity - Started Wegovy in May 2024 - Continue GLP1RA, still titrating up - Continue lifestyle modification effort * Assessment & Plan Note - Kassy Land MD - 09/19/2024 6:15 PM ESTAssociated Problem(s): Chronic pain of right ankle - previously left leg pain; likely overuse by compensating for left leg - referred to physical therapy, did not received referral letter, was given letter today and contact information to reschedule therapy - continue judicious use of APAP * Assessment & Plan Note - Kassy Land MD - 09/19/2024 6:14 PM ESTAssociated Problem(s): Localized swelling of both lower legs Recurrent symptoms Venous study in December 2022 was normal; no venous insufficiency Continue low sodium diet Consider prn diuretic with caution since patient is very concerned (although not recommended) * Assessment & Plan Note - Kassy Land MD - 09/19/2024 6:14 PM ESTAssociated Problem(s): Right hand pain -EMG / NCT was normal on 06/23/20 and on 06/11/24 -MRI in 2015 shows: Mild degenerative signal in the scapholunate ligament with no discrete tear; Mild extensor carpi ulnaris tendinosis; Small volar and dorsal ganglion cysts. -s/p right wrist arthroscopy with TFCC debridement and repair by Dr. Artis on 11/24/20 -Referred to Occupational Therapy but patient had a difficulty finding time to go to PT. * Assessment & Plan Note - Kassy Land MD - 09/19/2024 6:14 PM ESTAssociated Problem(s): Right knee pain - Previously she had left knee pain. Likely overuse by compensating left leg pain - Patient has tried PT - Continue judicious use of APAP - knee X-ray was ordered in 2022, not done yet * Assessment & Plan Note - Kassy Land MD - 09/19/2024 6:13 PM ESTAssociated Problem(s): Right wrist pain - see R hand pain * Assessment & Plan Note - Kassy Land MD - 09/19/2024 6:13 PM ESTAssociated Problem(s): History of kidney stones - previously evaluated by urologist - most recent US in December 2020 showed: Gallstones. Question small right renal stone. Small left renalcyst. * Assessment & Plan Note - Kassy Land MD - 09/19/2024 6:12 PM ESTAssociated Problem(s): Elevated BP without diagnosis of hypertension -Goal BP < 140/90 per JNC-8 and < 130/80 per ACC/AHA guideline (Treatment threshold >=140/90) -Transient vs. Chronic. She does not meet a criteria for Dx at this time. -Continue working on lifestyle modifications -Recommended self-monitoring BP. -Patient is prescribed propranolol for anxiety and GLP1RA for weight loss purpose. These treatment may improve BP. * Assessment & Plan Note - Kassy Land MD - 09/19/2024 6:12 PM ESTAssociated Problem(s): Chronic headache disorder - multifactorial - tension, vestibular, sinus, and migraine - following with [facility] neurology, last seen in Apr [...] for migraine preventative purpose since it was noteffective for migraine prophylaxis * Assessment & Plan Note - Kassy Land MD - 09/19/2024 6:08 PM ESTAssociated Problem(s): Sleep disturbance - continue working on weight loss - due to elevated BP, Hx sinus problem, headache, and insomnia, ordered sleep study. Patient statesshe will reschedule appt documented in this encounter Plan of Treatment Upcoming Encounters Date Type Department Care Team (Late st Contact Info) Description 10/31/2024 11:30 AM EDT Office Visit [facility] [address] [place] [address] Rupa Carrillo MD [address] [place] [address] Scheduled Orders Name Type Priority Associated Diagnoses Orde r Schedule US ABDOMINAL WALL, SOFT TISSUE LEFT Imaging Routine Left upper quadrant pain Expected: 09/19/2024, Expires: 09/19/2025 US ABDOMINAL DOPPLER COMP Imaging Routine History of kidney stones Left upper quadrant pain Expected: 09/19/2024, Expires: 09/19/2025 Scheduled Referrals Name Type Priority Associated Diagnoses Orde r Schedule Referral to Obstetrics / Gynecology Outpatient Referral Routine Urinary incontinence, unspecified type Encounter for well woman exam with routine gynecological exam Expected: 09/19/2024 (Approximate), Expires: 09/19/2025 documented as of this encounter Visit Diagnoses Diagnosis Routine general medical examination at a health care facility- Primary Elevated BP without diagnosis of hypertension Chronic nonintractable headache, unspecified headache type Class 2 severe obesity due to excess calories with serious comorbidity and body mass index (BMI) of 35.0 to 35.9 in adult ([facility]) Sleep disturbance Unspecified sleep disturbance Migraine without status migrainosus, not intractable, unspecified migraine type Chronic depression Benign paroxysmal positional vertigo, unspecified laterality Dietary counseling Dietary surveillance and counseling Exercise counseling History of kidney stones Right wrist pain Pain in joint, forearm Right hand pain Pain in soft tissues of limb Right knee pain, unspecified chronicity Localized swelling of both lower legs Chronic pain of right ankle Urinary incontinence, unspecified type Encounter for well woman exam with routine gynecological exam Chronic pain syndrome Left upper quadrant pain Abdominal pain, left upper quadrant documented in this encounter Additional Health Concerns Assessment Noted Time PHQ-9 Depression Total Score: 21 025 1:48 PM EST documented as of this encounter Care Teams V Groove Cutter Relationship Specialty Start Date End Date Kassy Land MD [address] [place] [id number] PCP - General Family Medicine 08/13/18 documented as of this encounter
== END 2024-09-25 08:22 | disposition home or self-care (01) ==
LOC: HO.MAMMO 08:21
PROVIDERS: PCP Family Medicine; Visit Provider Family Medicine
DX: Z12.31 Encounter for screening mammogram for malignant neoplasm of breast (principal)
CPT/HCPCS: 77063; 77067

== ENCOUNTER 2024-10-10 10:32 | Outpatient (REF) | payer OTHER, SELFPAY ==
--- NOTE | ~2024-10-10 | US_ITS ---
CLINICAL HISTORY: LUQ pain. Pt feels mass. Tender in LUQ, but no discrete mass. US abdomen limited Comparison: None Findings: The spleen is 10 cm in length and is unremarkable. The left kidney is 11.2 cm in length and is unremarkable. There are no abnormal masses or fluid collections. IMPRESSION: Unremarkable limited abdominal ultrasound. This document has been electronically signed by: Will Dunne MD on 10/10/2024 17:14:57
--- OUTSIDE RECORDS SUMMARY | 2024-10-10 12:02 | XMS_ITS | Encounter Summary ---
Author Organization [employer] Address [address] 7t [place] [address] Care Team Providers Care Medical Lab Tech Instructor Name Role Phone Kassy Land MD Primary Care Provider [phone] Reason for Visit * Reason Onset Date Comments Appointment Request 09/30/2024 Encounter Details Date Type Department Care Team ([facility] st Contact Info) Description 09/30/2024 Telephone [facility] [address] [place], [place] [phone] Kassy Land MD [address] [place], [place] [phone] Appointment Request Social History Tobacco Use Types Packs/Day Years [...] encounter Miscellaneous Notes * Telephone Encounter - Terri Felton [place] - 09/30/2024 3:51 PM EST T/c placed to patient to schedule pain group appt. LVM to cb documented in this encounter Plan of Treatment Upcoming Encounters Date Type Department Care Team (Late st Contact Info) Description 10/31/2024 11:30 AM EDT Office Visit [facility] [address] [place] [address] Rupa Carrillo MD [address] [place] [address] documented as of this encounter Visit Diagnoses Not on filedocumented in this encounter Additional Health Concerns Assessment Noted Time PHQ-9 Depression Total Score: 21 025 1:48 PM EST documented as of this encounter Care Teams Medical Lab Tech Instructor Relationship Specialty Start Date End Date Kassy Land MD [address] [place] [address] PCP - General Family Medicine 08/13/18 documented as of this encounter
--- OUTSIDE RECORDS SUMMARY | 2024-10-10 12:02 | XMS_ITS | Encounter Summary ---
Author Organization [employer] Address [address] 7[address] [place] [address] Care Team Providers Care C 13 Catapult Operator Name Role Phone Kassy Land MD Primary Care Provider [phone] Reason for Visit * Reason Onset Date Comments Lab Orders 11/02/2022 Encounter Details Date Type Department Care Team ([facility] st Contact Info) Description 11/02/2022 Telephone [facility] [address] [place], [place] [phone] Kassy Land MD [address] [place], [place] [phone] Lab Orders Social History Tobacco Use Types [...] 4:30 PM EDT Tc from porter with [facility] requesting an order for an MRI for the brain with out contrast. NPI # [id number] documented in this encounter Plan of Treatment Upcoming Encounters Date Type Department Care Team (Late st Contact Info) Description 10/31/2024 11:30 AM EDT Office Visit [facility] [address] [place], [place] [phone] Rupa Carrillo MD [address] [place] [address] documented as of this encounter Visit Diagnoses Not on filedocumented in this encounter Care Teams C 13 Catapult Operator Relationship Specialty Start Date End Date Kassy Land MD [address] [place] [address] PCP - General Family Medicine 08/13/18 documented as of this encounter
--- OUTSIDE RECORDS SUMMARY | 2024-10-10 12:02 | XMS_ITS | Encounter Summary ---
Author Organization [employer] Address [address] [facility] 7 [place] [address] Care Team Providers Care Paste Mixer Name Role Phone Kassy Land MD Primary Care Provider [phone] Reason for Visit * Reason Onset Date Comments as abd wall soft tissue order 09/25/2024 Encounter Details Date Type Department Care Team (Late st Contact Info) Description 09/25/2024 Telephone [employer] [facility] [address] [place], [place] [phone] Kassy Land MD [address] [place], [place] [phone] as abd wall soft tissue order Social History Tobacco Use Types Packs/Day Years [...] encounter Miscellaneous Notes * Telephone Encounter - Sofi Fox - 09/25/2024 10:45 AM EST [place] [facility] [place] Please update order to an ultrasound abdomen limited . documented in this encounter Plan of Treatment Upcoming Encounters Date Type Department Care Team (Late st Contact Info) Description 10/31/2024 11:[address] [facility] [address] [place] [phone] Rupa Carrillo MD 230 [place] [address] documented as of this encounter Visit Diagnoses Not on filedocumented in this encounter Additional Health Concerns Assessment Noted Time PHQ-9 Depression Total Score: 21 025 1:48 PM EST documented as of this encounter Care Teams Paste Mixer Relationship Specialty Start Date End Date Kassy Land MD [address] [place] [address] PCP - General Family Medicine 08/13/18 documented as of this encounter
--- OUTSIDE RECORDS SUMMARY | 2024-10-10 12:02 | XMS_ITS | Encounter Summary ---
Author Organization [employer] Address [address] [facility] 7t [place] [address] Care Team Providers Care General Practice Name Role Phone Kassy Land MD Primary Care Provider [phone] Reason for Referral * Imaging (Routine) - Authorized Specialty Diagnoses / Procedures Referred By Leo verdugo Referred To Contact Radiology Diagnoses Left upper quadrant pain Procedures US Abdomen Limited Kassy Land MD [address] [place] [address] Phone: tel: fax: [address] Phone: tel: fax: Referral ID Status Reason Start Date Expiration Date V isits Requested Visits Authorized [id number] Authorized 09/25/2024 09/25/2025 1 1 Encounter Details Date Type Department Care Team (Late st Contact Info) Description 09/25/2024 Orders Only [facility] [address] [place] [address] Kassy Land MD [address] [place], [place] [phone] Left upper quadrant pain (Primary Dx) Social History Tobacco Use Types Packs/Day Years [...] Description 10/31/2024 11:30 AM EDT Office Visit [facility] [address] [place] [address] Rupa Carrillo MD [address] [place] [address] Scheduled Orders Name Type Priority Associated Diagnoses Orde r Schedule US Abdomen Limited Imaging Routine Left upper quadrant pain Expected: 09/25/2024, Expires: 09/25/2025 documented as of this encounter Procedures Procedure Name Priority Date/Time Associated Diagnosis Comments BI MAMMOGRAM SCREENING TOMOSYNTHESIS BILATERAL Routine 09/25/2024 8:25 AM EST documented in this encounter Results * BI Mammogram Screening Tomosynthesis Bilateral (09/25/2024 8:25 AM EST) Anatomical Region Laterality Modality Breast Bilateral Mammography 09/25/2024 8:25 AM EST Narrative 10/03/2024 4:53 PM EST ? [facility] [place] ? [address] ?[place], [place] [address] ? Mammography Report ? Signed ? Patient: Felton,Della ?MR#: [id number] ? : 1985 ?Acct:[id number] ? Age/Sex: 39 / F ?ADM Date: 09/25/24 ? Loc: HO.MAMMO ? Attending Dr: Kassy Land MD ? Ordering Physician: Kassy Land MD ?Results: 1Negative ? Date of Service: 09/25/24 ?Follow Up: 1 Year From Orig ?? inal Mammogram ? Procedure(s): MM tomosynthesis screening BI ?? Accession Number(s): [id number] ? cc: Kassy Land MD ? EXAMINATION: ?? MM SCREENING DIGITAL BREAST TOMOSYNTHESIS, BILATERAL ? CLINICAL INFORMATION: ? Screening. Asymptomatic. ? COMPARISON: ?? Mammography: Comparison is made with available priors ? TECHNIQUE: ?? Digital breast mammography with tomosynthesis is performed in both the ?? craniocaudal and mediolateral oblique views along with computer-aided ?? detection (CAD). ? FINDINGS: ?? There are scattered areas [...] due date for their next mammogram. ? Electronically signed by: ??Sherice Mueller DO ??10/03/2024 04:49 PM EST ? Dictated By: ?Sherice Mueller DO ? Signed By: ?<Electronically signed by Sherice Mueller, DO in OV> ? 10/03/24 1649 ? DD/ 0825 ? TD/TT: 09/25/24 0843 ? Teacher Cclc: ? Procedure Note Nereida, Image - 10/03/2024 [facility] [address] [place] [address] Mammography Report Signed Patient: Dennis Felton#: [id number] : 1985Acct:[id number] Age/Sex: 39 / FADM Date: 09/25/24 Loc: RAYA Attending Dr: Kassy Land MD Ordering Physician: Kassy Landesults: 1Negative Date of Service: 09/25/24Follow Up: 1 Year From Orig inal Mammogram Procedure(s): MM tomosynthesis screening Accession Number(s): [id number] cc: Kassy Land MD EXAMINATION: MM SCREENING DIGITAL BREAST TOMOSYNTHESIS, BILATERAL CLINICAL INFORMATION: Screening. Asymptomatic. COMPARISON: Mammography: Comparison is made with available priors TECHNIQUE: Digital breast mammography with tomosynthesis is performed in both the craniocaudal and mediolateral oblique views along with computer-aided detection (CAD). FINDINGS: There are scattered areas of fibroglandular [...] target due date for their next mammogram. Electronically signed by: Sherice Mueller DO 10/03/2024 04:49 PM EST RP Dictated By: Sherice Mueller DO Signed By: <Electronically signed by Sherice Mueller DO in OV> 10/03/24 1649 DD/ 0825 TD/TT: 09/25/24 0843 Teacher Cclc: Kassy Land MD IMG BI PROCEDURES Final Result documented in this encounter Visit Diagnoses Diagnosis Left upper quadrant pain- Primary Abdominal pain, left upper quadrant documented in this encounter Additional Health Concerns Assessment Noted Time PHQ-9 Depression Total Score: 21 025 1:48 PM EST documented as of this encounter Care Teams General Practice Relationship Specialty Start Date End Date Kassy Land MD [address] [place] [address] PCP - General Family Medicine 08/13/18 documented as of this encounter
--- OUTSIDE RECORDS SUMMARY | 2024-10-10 12:02 | XMS_ITS | Encounter Summary ---
Author Organization [employer] Address [address] 7[address] [place] [address] Care Team Providers Care Silviculture Teacher Name Role Phone Kassy Land MD Primary Care Provider [phone] Encounter Details Date Type Department Care Team [...] Description 10/31/2024 11:30 AM EDT Office Visit [facility] [address] [place] [address] Rupa Carrillo MD [address] [place] [address] documented as of this encounter Visit Diagnoses Not on filedocumented in this encounter Additional Health Concerns Assessment Noted Time PHQ-9 Depression Total Score: 21 025 1:48 PM EST documented as of this encounter Care Teams Silviculture Teacher Relationship Specialty Start Date End Date Kassy Land MD [address] [place] [phone] PCP - General Family Medicine 08/13/18 documented as of this encounter
--- OUTSIDE RECORDS SUMMARY | 2024-10-10 12:03 | XMS_ITS | Encounter Summary ---
Author Organization [employer] Address [address] [facility] [address] [address] 7t [place] [address] Care Team Providers Care Sales Marketing Name Role Phone Kassy Land MD Primary Care Provider [phone] Reason for Visit * Reason Onset Date Comments chart prep 09/15/2024 Encounter Details Date Type Department Care Team (Late st Contact Info) Description 09/15/[address] [facility] [address] [place], [place] [phone] Kassy Land MD [address] [place] [address] Class 2 severe obesity due [...] 10/31/2024 11:30 AM EDT Office Visit [facility] [address] [place] [address] Rupa Carrillo MD [address] [place] [address] documented as of this encounter Visit Diagnoses Diagnosis Class 2 severe obesity due to excess calories with serious comorbidity and body mass index (BMI) of 35.0 to 35.9 in adult (CMS/HCC) documented in this encounter Additional Health Concerns Assessment Noted Time PHQ-9 Depression Total Score: 2 11/22/19 23 3:16 PM EDT documented as of this encounter Care Teams Sales Marketing Relationship Specialty Start Date End Date Kassy Land MD [address] [place] [address] PCP - General Family Medicine 08/13/18 documented as of this encounter
--- OUTSIDE RECORDS SUMMARY | 2024-10-10 12:03 | XMS_ITS | Encounter Summary ---
Author Organization [employer] Address [address] [facility] [address] 7t [place] [address] Care Team Providers Care Parent Partner Name Role Phone Kassy Land MD Primary Care Provider [phone] Reason for Referral * Imaging (Routine) - Canceled Specialty Diagnoses / Procedures Referred By Leo verdugo Referred To Contact Radiology Diagnoses History of kidney stones Left upper quadrant pain Procedures US ABDOMINAL DOPPLER COMP Kassy Land MD [address] [place] [address] Phone: tel: fax: [address] Phone: tel: fax: Referral ID Status Reason Start Date Expiration Date V isits Requested Visits Authorized [id number] Canceled 09/19/2024 09/19/2025 1 1 * Imaging (Routine) - Canceled Specialty Diagnoses / Procedures Referred By Leo verdugo Referred To Contact Radiology Diagnoses Left upper quadrant pain Procedures US ABDOMINAL WALL, SOFT TISSUE LEFT Kassy Land MD [address] [place] [address] Phone: tel: fax: [address] Phone: tel: fax: Referral ID Status Reason Start Date Expiration Date V isits Requested Visits Authorized [id number] Canceled 09/19/2024 09/19/2025 1 1 * Consultation (Routine) - Closed Specialty Diagnoses / Procedures Referred By Contac t Referred To Contact Obstetrics and Gynecology Diagnoses Urinary incontinence, unspecified type Encounter for well woman exam with routine gynecological exam Kassy Land MD [address] [place] [address] Phone: tel: fax: [facility] Referral ID Status Reason Start Date Expiration Date V isits Requested Visits Authorized [id number] Closed Specialty Services Required 09/19/2024 09/19/2025 1 1 Encounter Details Date Type Department Care Team (Latest Contact Info) Description 09/18/2024 10:30 AM EST Office Visit [facility] [address] [place] [address] Kassy Land MD [address] [place] [address] Routine general medical examination at a health care facility (Primary Dx); Elevated BP without diagnosis of hypertension; Chronic nonintractable headache, unspecified headache type; Class 2 severe obesity due to excess calories with serious comorbidity and body mass index (BMI) of 35.0 to 35.9 in adult (CMS/[facility]); Sleep disturbance; Migraine without status migrainosus, not [...] for papsmear. Previously receiving care from [facility]. 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 Routine general medical examination at [...] vestibular, sinus, and migraine - following with [facility] neurology, last seen in Apr 2024 [...] index (BMI)of 35.0 to 35.9 in adult ([facility]) Assessment & Plan: - Started [employer] in [...] type Assessment & Plan: Currently following with [facility] neurology service, last seen on 10/26/22 [...] or plan. - Continue counseling with current [facility] provider: Naomi Weiner [phone] - Previously tried venlafaxine and hydroxyzine, which [...] sooner if any problem arises. Scribe Attestation: Julienne Harris, am serving as a scribe to document [...] or plan. - Continue counseling with current [facility] provider: Naomi Weiner [phone] - Previously tried venlafaxine and hydroxyzine, which she self-discontinued - She is prescribed propranolol for anxiety (patient requested in May 2024), - She contracted her safety today. She has a crisis number and has her long-term therapist. * Assessment & Plan Note - Kassy Land MD - 09/19/2024 6:16 PM ESTAssociated Problem(s): Migraine Currently following with [facility] neurology service, last seen on 10/26/22 [...] vestibular, sinus, and migraine - following with [facility] neurology, last seen in Apr 2024 [...] Description 10/31/2024 11:30 AM EDT Office Visit [facility] [address] [place] [address] Rupa Carrillo MD [address] [place] [address] Scheduled Orders Name Type Priority Associated Diagnoses [...] of 35.0 to 35.9 in adult (CMS/HCC) Sleep disturbance Unspecified sleep disturbance Migraine without [...] documented as of this encounter Care Teams Parent Partner Relationship Specialty Start Date End Date Kassy Land MD [address] [place] [address] PCP - General Family Medicine 08/13/18 documented as of this encounter
--- OUTSIDE RECORDS SUMMARY | 2024-10-10 12:03 | XMS_ITS | Clinical Summary ---
Author Organization [employer] Address [address] [place] [address] Care Team Providers Care Family Law Mediator Name Role Phone Kassy Land MD Primary Care Provider [phone] Allergies Active Allergy Reactions Criticality Noted Date [...] (BMI) of 35.0 to 35.9 in adult ([facility]) Inject 0.5 mL (0.5 mg) under the [...] counseling with current S provider: Naomi Weiner [address] - Previously tried venlafaxine and hydroxyzine, which she self-discontinued - She is prescribed propranolol for anxiety (patient requested in May 2024), - She contracted her safety today. She has a crisis number and has her long-term therapist. Assessment & Plan (06/20/2024 11:17 AM EST): - with anxiety symptoms - Continue counseling with current S provider: Naomi Weiner [address] - Previously tried venlafaxine and hydroxyzine, which she self-discontinued - She is requesting propranolol, will prescribe as patient requested Assessment & Plan (09/09/2023 6:40 PM EST): - Continue counseling with current S provider: Naomi Weiner [address] - Restart venlafaxine - Restart hydroxyzine prn Assessment & Plan (09/20/2022 1:59 PM EST): - Continue counseling with current [facility] provider: Naomi Weiner [address] - Restart venlafaxine - Restart hydroxyzine prn Benign paroxysmal positional vertigo 08/04/2015 Hypertrophy of tonsils 10/30/2013 Chronic headache disorder 08/14/2012 Assessment & Plan (09/19/2024 6:12 PM EST): - multifactorial - tension, vestibular, sinus, and migraine - following with [facility] neurology, last seen in Apr 2024 [...] vestibular, sinus, and migraine - following with [facility] neurology, last seen in Apr 2024 [...] vestibular, sinus, and migraine - following with [facility] neurology, last seen in October 2022 [...] (09/19/2024 6:16 PM EST): Currently following with [facility] neurology service, last seen on 10/26/22 [...] (05/13/2024 3:55 PM EDT): Currently following with [facility] neurology service, last seen on 10/26/22 [...] (09/14/2023 3:44 PM EST): Currently following with [facility] neurology service, last seen on 10/26/22 [...] (11/21/2022 3:52 PM EDT): Currently following with [facility] neurology service, last seen on 10/26/22 [...] (09/20/2022 1:58 PM EST): Currently following with [facility] neurology service -Previously tried medications --Topamax [...] Encounters Date Type Department Care Team Description 09/30/2024 Telephone [facility] [place] [facility] [place] [address] Kassy Land MD Appointment Request 09/25/2024 Orders Only [facility] [place] [facility] [address] Kassy Land MD Left upper quadrant pain (Primary Dx) 09/25/2024 Telephone [facility] [place] [facility] [place] [address] Kassy Land MD as abd wall soft tissue order 09/18/2024 10:30 AM EST Office Visit [facility] [place] [facility] [place] [address] Kassy Land MD Routine general medical examination at a health care facility (Primary Dx); Elevated BP without diagnosis of hypertension; Chronic nonintractable headache, unspecified headache type; Class 2 severe obesity due to excess calories with serious comorbidity and body mass index (BMI) of 35.0 to 35.9 in adult ([facility]); Sleep disturbance; Migraine without status migrainosus, not [...] upper quadrant pain 09/18/2024 Travel 09/15/2024 Refill [facility] [place] [facility] [place] [address] Kassy Land MD Class 2 severe obesity due to excess calories with serious comorbidity and body mass index (BMI) of 35.0 to 35.9 in adult ([facility]) 09/04/2024 Patient Outreach [facility] [place] [facility] [place] [address] Kassy Land MD Pre-visit Planning (Pre-visit planning - LVM ) 08/15/2024 Refill [facility] [address] [place] [address] Kassy Land MD Class 2 severe obesity due to excess calories with serious comorbidity and body mass index (BMI) of 35.0 to 35.9 in adult ([facility]) from Last 3 Months Immunizations Name Administration [...] Description 10/31/2024 11:30 AM EDT Office Visit [facility] [address] [place], [place] [phone] Rupa Carrillo MD [address] [place] [address] Health Maintenance Due Date Last Done Comments [...] Screening 09/18/2025 09/18/2024 Tobacco Screening 09/19/2025 09/19/2024 Family Planning (PISQ) 09/24/2025 09/24/2024 Mammogram 09/25/2026 09/25/2024, 09/20/2023 Lipid Panel 05/14/2029 05/14/2024 DTaP/Tdap/Td Vaccines (3 [...] TOMOSYNTHESIS BILATERAL Routine 09/25/2024 8:25 AM EST LIPID PANEL WITH REFLEX TO DIRECT LDL Routine 05/14/2024 11:11 AM EDT Elevated BP without diagnosis of hypertension from Last 3 Months or Most Recently Relevant to Health Maintenance Results * BI Mammogram Screening Tomosynthesis Bilateral (09/25/2024 8:25 AM EST) Anatomical Region Laterality Modality Breast Bilateral Mammography 09/25/2024 8:25 AM EST Narrative 10/03/2024 4:53 PM EST ? [facility] ? [address] ?[place] [address] ? Mammography Report ? Signed ? Patient: Felton,Della ?MR#: [id number] ? : 1985 ?Acct:[id number] ? Age/Sex: 39 / F ?ADM Date: 09/25/25 ? Loc: HO.MAMMO ? Attending Dr: Kassy Land MD ? Ordering Physician: Kassy Land MD ?Results: 1Negative ? Date of Service: 09/25/ ?Follow Up: 1 Year From Orig ?? inal Mammogram ? Procedure(s): MM tomosynthesis screening BI ?? Accession Number(s): [id number] ? cc: Kassy Land MD ? EXAMINATION: [...] ? Signed By: ?<Electronically signed by Sherice Mueller DO in OV> ? 10/03/24 1649 ? DD/ 4 ? TD/TT: 09/25/24 0843 ? Acid Adjuster: ? Procedure Note Nereida, Image - 10/03/2024 [facility] [address] [place] [address] Dr. Flores, TEJAS [address] Mammography Report Signed Patient: Dennis Felton#: [id number] : 1985Acct:[id number] Age/Sex: 39 / FADM Date: 09/25/24 Loc: RAYA Attending Dr: Kassy Land MD Ordering Physician: Kassy Land MDResults: 1Negative Date of Service: 09/25/24Follow Up: 1 Year From [facility] Mammogram Procedure(s): MM tomosynthesis screening BI Accession Number(s): [id number] cc: Kassy Land MD EXAMINATION: MM SCREENING [...] by: Sherice Mueller DO 10/03/2024 04:49 PM [facility] Dictated By: Sherice Mueller DO Signed By: <Electronically signed by Sherice Mueller DO in OV> 10/03/24 1649 DD/ 0825 TD/TT: 09/25/24 0843 Acid Adjuster: Kassy Land MD [facility] BI PROCEDURES Final Result * (ABNORMAL) Lipid Panel with Reflex to Direct LDL (05/14/2024 11:11 AM EDT) Triglycerides 162(H) <150 mg/dL [facility] Comment:Desirable Triglyceri de: less than 150 mg/dLBorderline High Triglyceride 150-199 mg/dLHigh Triglyceride: 200-499 mg/dLVery High Triglyceride: greater than or equal to 5OO mg/dL Cholesterol 175 <200 mg/dL [facility] Comment:Desirable Cholestero l: less than 200 mg/dLBorderline High Cholesterol: 200-239 mg/dLHigh Cholesterol: greater than 239 mg/dL LDL Cholesterol Calculated 101(H) <100 mg/dL [facility] Comment:Desirable LDL: less than 100 mg/dLNear Optimal/Above Optimal LDL: 110- 129 mg/dLBorderline High LDL: 130-159 mg/dLHigh LDL: 160-189 mg/dLVery High LDL: greater than or equal to 190 mg/dL HDL Cholesterol 42 >40 mg/dL [facility] Comment:Desirable HDL: great er than 40 mg/dL Note: This HDL assay may give artificially low results in patients with liver disease. Blood 05/14/2024 11:1 1 AM EDT 05/14/2024 1:41 PM EDT us Kassy Land MD LAB BLOOD ORDERABLES Final Resul t [facility] [address] [place] [address] [phone] from Last 3 Months or Most Recently Relevant to Health Maintenance Insurance [facility] Care Teams Family Law Mediator Relationship Specialty Start Date End Date Kassy Land MD [address] [place] [id number] PCP - General Family Medicine 08/13/18
== END 2024-10-10 10:33 | disposition home or self-care (01) ==
LOC: HO.HMGCX 10:32
PROVIDERS: PCP Family Medicine; Visit Provider Family Medicine
DX: R10.12 Left upper quadrant pain (principal)
CPT/HCPCS: 76705

== ENCOUNTER → 2024-10-10 10:39 | Outpatient (BNV) | payer OTHER, SELFPAY | PROVIDERS: PCP Family Medicine; Visit Provider Specialist | DX: R10.12 Left upper quadrant pain (principal) | CPT/HCPCS: 76705 ==

== ENCOUNTER 2024-11-26 13:28 | Outpatient (REF) | payer OTHER, SELFPAY ==
--- OUTSIDE RECORDS SUMMARY | 2024-11-26 17:31 | XMS_ITS | Encounter Summary ---
Author Organization [employer] Address [address] [place] [address] Care Team Providers Care Ship'S Pilot Name Role Phone Kassy Land MD Primary Care Provider [phone] Reason for Visit * Reason Onset Date Comments Lab Orders 11/02/2022 Encounter Details Date Type Department Care Team ([facility] st Contact Info) Description 11/02/2022 Telephone [facility] [address] [place], [place] [phone] Kassy Land MD [address] [place], [place] [phone] Lab Orders Social History Tobacco Use Types [...] 4:30 PM EDT Tc from porter with [facility] requesting an order for an MRI for the brain with out contrast. NPI # [id number] documented in this encounter Plan of Treatment Not on file documented as of this encounter Visit Diagnoses Not on filedocumented in this encounter Care Teams Ship'S Pilot Relationship Specialty Start Date End Date Kassy Land MD [address] [place] [phone] PCP - General Family Medicine 08/13/18 documented as of this encounter
--- OUTSIDE RECORDS SUMMARY | 2024-11-26 17:31 | XMS_ITS | Clinical Summary ---
Author Organization [employer] Address [address] 7[address] [place] [address] Care Team Providers Care Blood Bank Specialist Name Role Phone Kassy Land MD Primary Care Provider Allergies Active Allergy Reactions Criticality Noted Date [...] (BMI) of 35.0 to 35.9 in adult ([facility]) Inject 0.75 mL (1.7 mg) under [...] or plan. - Continue counseling with current [facility] provider: Naomi Weiner [address] - Previously tried venlafaxine and hydroxyzine, which she self-discontinued - She is prescribed propranolol for anxiety (patient requested in May 2024), - She contracted her safety today. She has a crisis number and has her long-term therapist. Assessment & Plan (06/20/2024 11:17 AM EST): - with anxiety symptoms - Continue counseling with current [facility] provider: Naomi Weiner [address] - Previously tried venlafaxine and hydroxyzine, which she self-discontinued - She is requesting propranolol, will prescribe as patient requested Assessment & Plan (09/09/2023 6:40 PM EST): - Continue counseling with current [facility] provider: Naomi Weiner [facility] [address] [facility] - Restart venlafaxine - Restart hydroxyzine prn Assessment & Plan (09/20/2022 1:59 PM EST): - Continue counseling with current [facility] provider: Naomi Weiner [facility] [address] [facility] - Restart venlafaxine - Restart hydroxyzine prn Benign paroxysmal positional vertigo 08/04/2015 Hypertrophy of tonsils 10/30/2013 Chronic headache disorder 08/14/2012 Assessment & Plan (09/19/2024 6:12 PM EST): - multifactorial - tension, vestibular, sinus, and migraine - following with [facility] neurology, last seen in Apr 2024 - [...] vestibular, sinus, and migraine - following with [facility] neurology, last seen in Apr 2024 - [...] vestibular, sinus, and migraine - following with [facility] neurology, last seen in October 2022 - [...] (09/19/2024 6:16 PM EST): Currently following with [facility] neurology service, last seen on 10/26/22 -Previously [...] (05/13/2024 3:55 PM EDT): Currently following with [facility] neurology service, last seen on 10/26/22 -Previously [...] (09/14/2023 3:44 PM EST): Currently following with [facility] neurology service, last seen on 10/26/22 -Previously [...] (11/21/2022 3:52 PM EDT): Currently following with [facility] neurology service, last seen on 10/26/22 -Previously [...] (09/20/2022 1:58 PM EST): Currently following with [facility] neurology service -Previously tried medications --Topamax 25 [...] Type Department Care Team Description 11/24/2024 Refill [facility] [address] [place] [address] Kassy Land MD 10/31/2024 11:30 AM EDT Office Visit [facility] [address] [place] [address] Rupa Carrillo MD Androgenic alopecia (Primary Dx) 10/31/2024 Travel 10/23/2024 Refill [facility] [place] [address] Kassy Land MD Class 2 severe obesity due to excess calories with serious comorbidity and body mass index (BMI) of 35.0 to 35.9 in adult ([facility]) 10/17/2024 Telephone [facility] [address] [place] [phone] Kassy Land MD Medication Question 10/17/2024 Refill [facility] [address] [place], [place] [phone] Kassy Land MD Class 2 severe obesity due to excess calories with serious comorbidity and body mass index (BMI) of 35.0 to 35.9 in adult ([facility]) 09/30/2024 Telephone [facility] [address] [place] [address] Kassy Land MD Appointment Request 09/25/2024 Orders Only [facility] [address] [place] [address] Kassy Land MD Left upper quadrant pain (Primary Dx) 09/25/2024 Telephone [facility] [address] [place] [address] [phone] Kassy Land MD as abd wall soft tissue order 09/18/2024 10:30 AM EST Office Visit [facility] [address] [place] [address] Kassy Land MD Routine general medical examination at a health care facility (Primary Dx); Elevated BP without diagnosis of hypertension; Chronic nonintractable headache, unspecified headache type; Class 2 severe obesity due to excess calories with serious comorbidity and body mass index (BMI) of 35.0 to 35.9 in adult ([facility]); Sleep disturbance; Migraine without status [...] upper quadrant pain 09/18/2024 Travel 09/15/2024 Refill [facility] [address] [place] [address] Kassy Land MD Class 2 severe obesity due to excess calories with serious comorbidity and body mass index (BMI) of 35.0 to 35.9 in adult ([facility]) 09/04/2024 Patient Outreach [facility] [address] [place] [address] Kassy Land MD Pre-visit Planning (Pre-visit planning [...] EST ? [facility] ?[address] ? [place] [address] ? Ultrasound Report ? Signed ? Patient: Felton,Della ?MR#: [id number] ? : 1985 ?Acct:[id number] ? Age/Sex: 39 / F ?ADM Date: 10/10/24 ? Loc: HO.HMGCX ? Attending Dr: Kassy Land MD ? Ordering Physician: Kassy Land MD ?? Date of Service: 10/10/24 ?? Procedure(s): US abdomen limited ?? Accession Number(s): [id number] ? cc: Kassy Land MD ? CLINICAL [...] ? DD/ 13 ? TD/TT: 10/10/241713 ? Design Release Engineer: ? Procedure Note Donotuseinterpreter, Image - 10/10/2024 [facility] [address] [place] [address] [place] [address] Ultrasound Report Signed Patient: Dennis Felton#: [id number] : 1985Acct:[id number] Age/Sex: 39 / FADM Date: 10/10/24 Loc: .HMGX Attending Dr: Kassy Land MD Ordering Physician: Kassy Land MD Date of Service: 10/10/24 Procedure(s): US abdomen limited Accession Number(s): [id number] cc: Kassy Land MD CLINICAL HISTORY: LUQ [...] in OV> 10/10/241714 DD/ 13 TD/TT: 10/10/241713 Design Release Engineer: us Kassy Land MD IMG US PROCEDURES Final Result * BI Mammogram Screening Tomosynthesis Bilateral (09/25/2024 8:25 AM EST) Anatomical Region Laterality Modality Breast Bilateral Mammography 09/25/2024 8:25 AM EST Narrative 10/03/2024 4:53 PM EST ? [facility] ? [address] ?[place] [address] ? Mammography Report ? Signed ? Patient: Felton,Della ?MR#: [id number] ? : 1985 ?Acct:[id number] ? Age/Sex: 39 / F ?ADM Date: 02/13/25 ? Loc: HO.MAMMO ? Attending Dr: Kassy Land MD ? Ordering Physician: Kassy Land MD ?Results: 1Negative ? Date of Service: 09/25/24 ?Follow Up: 1 Year From Orig ?? inal Mammogram ? Procedure(s): MM tomosynthesis screening BI ?? Accession Number(s): [id number] ? cc: Kassy Land MD ? EXAMINATION: [...] DD/ 0825 ? TD/TT: 09/25/24 0843 ? Design Release Engineer: ? Procedure Note Donotuseinterpreter, Image - 10/03/2024 [facility] [address] [place] [address] Mammography Report Signed Patient: Dennis Felton#: [id number] : 1985Acct:[id number] Age/Sex: 39 / FADM Date: 09/25/24 Loc: RAYA Attending Dr: Kassy Land MD Ordering Physician: Kassy Land MDResults: 1Negative Date of Service: 09/25/24Follow Up: 1 Year From Orig ina Mammogram Procedure(s): MM tomosynthesis screening BI Accession Number(s): [id number] cc: Kassy Land MD EXAMINATION: MM SCREENING [...] by: Sherice Mueller DO 10/03/2024 04:49 PM [facility] Dictated By: Sherice Mueller DO Signed By: <Electronically signed by Sherice Mueller DO in OV> 10/03/24 1649 DD/ 0825 TD/TT: 09/25/24 0843 Design Release Engineer: Kassy Land MD IMG BI PROCEDURES Final Result * (ABNORMAL) Lipid Panel with Reflex to Direct LDL (05/14/2024 11:11 AM EDT) Triglycerides 162(H) <150 mg/dL [facility] Comment:Desirable Triglyceri de: less than 150 mg/dLBorderline High Triglyceride 150-199 mg/dLHigh Triglyceride: 200-499 mg/dLVery High Triglyceride: greater than or equal to 5OO mg/dL Cholesterol 175 <200 mg/dL [facility] Comment:Desirable Cholestero l: less than 200 mg/dLBorderline High Cholesterol: 200-239 mg/dLHigh Cholesterol: greater than 239 mg/dL LDL Cholesterol Calculated 101(H) <100 mg/dL [facility] Comment:Desirable LDL: less than 100 mg/dLNear Optimal/Above Optimal LDL: 110- 129 mg/dLBorderline High LDL: 130-159 mg/dLHigh LDL: 160-189 mg/dLVery High LDL: greater than or equal to 190 mg/dL HDL Cholesterol 42 >40 mg/dL [facility] Comment:Desirable HDL: great er than 40 mg/dL Note: This HDL assay may give artificially low results in patients with liver disease. Blood 05/14/2024 11:1 1 AM EDT 05/14/2024 1:41 PM EDT us Kassy Land MD LAB BLOOD ORDERABLES Final Resul t [facility] [address] [place] [phone] from Last 3 Months or Most Recently Relevant to Health Maintenance Insurance [facility] Care Teams Blood Bank Specialist Relationship Specialty Start Date End Date Kassy Land MD [address] [place] [phone] PCP - General Family Medicine 08/13/18
--- OUTSIDE RECORDS SUMMARY | 2024-11-26 17:31 | XMS_ITS | Encounter Summary ---
Author Organization [employer] Address [address] 7t [place] [address] Care Team Providers Care Research Program Internship Name Role Phone Kassy Land MD Primary Care Provider [phone] Reason for Referral * Imaging (Routine) - Closed Specialty Diagnoses / Procedures Referred By Leo verdugo Referred To Contact Radiology Diagnoses Left upper quadrant pain Procedures US Abdomen Limited Kassy Land MD [address] [place] [address] Phone: tel: fax: [address] Phone: tel: fax: Referral ID Status Reason Start Date Expiration Date Visits Re quested Visits Authorized [id number] Closed 09/25/2024 09/25/2025 1 1 Encounter Details Date Type Department Care Team (Late st Contact Info) Description 09/25/2024 Orders Only [facility] [address] [place] [address] Kassy Land MD [address] [place], [place] [phone] Left upper quadrant pain (Primary Dx) Social [...] Adult Primary Care ?[address] ? [place] [address] ? Ultrasound Report ? Signed ? Patient: Felton,Della ?MR#: [id number] ? : 1985 ?Acct:[id number] ? Age/Sex: 39 / F ?ADM Date: 10/10/24 ? Loc: HO.HMGCX ? Attending Dr: Kassy Land MD ? Ordering Physician: Kassy Land MD ?? Date of Service: 10/10/24 ?? Procedure(s): US abdomen limited ?? Accession Number(s): [id number] ? cc: Kassy Land MD ? CLINICAL [...] ? DD/ 1714 ? TD/TT: 10/10/241713 ? Adult Health Clinical Nurse Specialist: ? Procedure Note Donnachoter, Image - 10/10/2024 [facility] Primary Care [address] [place] [address] [place] [address] Ultrasound Report Signed Patient: Dennis Felton#: [id number] : 1985Acct:[id number] Age/Sex: 39 / FADM Date: 10/10/24 Loc: HO.HMGCX Attending Dr: Ksasy Land MD Ordering Physician: Kassy Land MD Date of Service: 10/10/24 Procedure(s): US abdomen limited Accession Number(s): [id number] cc: Kassy Land MD CLINICAL HISTORY: LUQ [...] in OV> 10/10/241714 DD/ 13 TD/TT: 10/10/241713 Adult Health Clinical Nurse Specialist: us Kassy Land MD IMG US PROCEDURES Final Result * BI Mammogram Screening Tomosynthesis Bilateral (09/25/2024 8:25 AM EST) Anatomical Region Laterality Modality Breast Bilateral Mammography 09/25/2024 8:25 AM EST Narrative 10/03/2024 4:53 PM EST ? [facility] [place] ? [address] ?[place] [address] ? Mammography Report ? Signed ? Patient: Felton,Della ?MR#: [id number] ? : 1985 ?Acct:[id number] ? Age/Sex: 39 / F ?ADM Date: /13/25 ? Loc: HO.MAMMO ? Attending Dr: Kassy Land MD ? Ordering Physician: Kassy Land MD ?Results: 1Negative ? Date of Service: 09/25/ ?Follow Up: 1 Year From Orig ?? inal Mammogram ? Procedure(s): MM tomosynthesis screening BI ?? Accession Number(s): [id number] ? cc: Kassy Land MD ? EXAMINATION: [...] DD/ 4 ? TD/TT: 09/25/24 0843 ? Adult Health Clinical Nurse Specialist: ? Procedure Note Nere[place], [place] - 10/03/2024 [facility] [address] [place] [address] [place] [address] Mammography Report Signed Patient: Delilah FeltonR#: [id number] : 1985Acct:[id number] Age/Sex: 39 / FADM Date: 09/25/24 Loc: HO.MAMMO Attending Dr: Kassy Land MD Ordering Physician: Kassy Land MDResults: 1Negative Date of Service: 09/25/24Follow Up: 1 Year From [facility] ina Mammogram Procedure(s): MM tomosynthesis screening BI Accession Number(s): [id number] cc: Kassy Land MD EXAMINATION: MM SCREENING [...] 10/03/24 1649 DD/ 0825 TD/TT: 09/25/24 0843 Adult Health Clinical Nurse Specialist: us Kassy Land MD IMG BI PROCEDURES Final Result documented in this encounter Visit Diagnoses Diagnosis Left upper quadrant pain- Primary Abdominal pain, left upper quadrant documented in this encounter Additional Health Concerns Assessment Noted Time PHQ-9 Depression Total Score: 21 025 1:48 PM EST documented as of this encounter Care Teams Research Program Internship Relationship Specialty Start Date End Date Kassy Land MD [address] [place] [address] PCP - General Family Medicine 08/13/18 documented as of this encounter
--- OUTSIDE RECORDS SUMMARY | 2024-11-26 17:31 | XMS_ITS | Encounter Summary ---
Author Organization [employer] Address [address] [place] [address] Care Team Providers Care Logistics Center Manager Name Role Phone Kassy Land MD Primary Care Provider [phone] Reason for Visit * Reason Onset Date Comments Med Refill 11/24/2024 Encounter Details Date Type Department Care Team (Late st Contact Info) Description 11/24/2024 Refill [facility] [address] [place], [place] [phone] Kassy Land MD [address] [place] [address] Social History Tobacco Use Types [...] MG/0.75ML solution auto-injector To be sent to: Traveler | [id number] [place], [place] - [address] [facility] documented in this encounter Plan of Treatment Not on file documented as of this encounter Visit Diagnoses Not on filedocumented in this encounter Additional Health Concerns Assessment Noted Time PHQ-9 Depression Total Score: 21 025 1:48 PM EST documented as of this encounter Care Teams Logistics Center Manager Relationship Specialty Start Date End Date Kassy Land MD [address] [place] [phone] PCP - General Family Medicine 08/13/18 documented as of this encounter"
--- OUTSIDE RECORDS SUMMARY | 2024-11-26 17:31 | XMS_ITS | Encounter Summary ---
Author Organization [employer] Address [address] [facility] [place] [address] 7[address] [place] [address] Care Team Providers Care Veneer Matcher Name Role Phone Kassy Land MD Primary Care Provider [phone] Reason for Visit * Reason Comments Med Refill Encounter Details Date Type Department Care Team ([facility] st Contact Info) Description 10/23/2024 Refill [facility] [address] [place], [place] [phone] Kassy Land MD [address] [place], [place] [phone] Class 2 severe obesity due to excess [...] documented as of this encounter Care Teams Veneer Matcher Relationship Specialty Start Date End Date Kassy Land MD [address] [place] [address] PCP - General Family Medicine 08/13/18 documented as of this encounter
[2024-11-27 08:46] LABS: Bacterial Vaginosis PCR NEGATIVE (Negative); Candida Group PCR NOT DETECTED (Not Detect); Candida glab krusei PCR NOT DETECTED (Not Detect); Trichomonas vaginalis PCR NOT DETECTED (Not Detect)
[2024-11-27 09:17] LABS: CT PCR NOT DETECTED (Not Detect.); NG PCR NOT DETECTED (Not Detect.)
== END 2024-11-26 13:29 | disposition home or self-care (01) ==
LOC: HO.LAB 13:28
PROVIDERS: PCP Family Medicine; Visit Provider Advanced Practice Midwife
DX: Z01.419 Encounter for gynecological examination (general) (routine) without abnormal findings (principal); N89.8 Other specified noninflammatory disorders of vagina; Z20.2 Contact with and (suspected) exposure to infections with a predominantly sexual mode of transmission; E66.811 Obesity, class 1
CPT/HCPCS: 81515; 87491; 87591; 99386; 99459

== ENCOUNTER 2024-11-26 13:28 | Outpatient (AMB) | payer OTHER, SELFPAY ==
--- NOTE | 2024-11-26 13:41 | A.OFFVIS_ITS ---
Vital Signs 11/26/24 13:50 Height 5 ft Weight 158 lb BMI 30.9 BP 120/72 Intake Visit Reasons: annual Intake Note: Per patient last pap smear 5+ years ago, normal history. 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 She is an 16-year-old and a 13-year-old. Was born premature the 1st 1 born at 30 weeks and for that she was transferred from [facility] to [place] because there was [facility] in her NICU at the time. For her 2nd 1 she was about 8 months and traveled to [place] and when she went into labor and had her baby at [place]. She is single since her youngest was 3 years old she has no concerns about infection but has not had an exam since the last time she was sexually active see will accept testing today she does need a Pap smear.. She started on wegovy in July for her primary care provider and has had a lot of success with it and feels like it is really helping her did not better and better choices and not over eat. 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 Female Reproductive History Menstrual Age of Menarche: 11 Duration of menses: 3-5 days Date of last menstrual period: 11/04/24 control method: none Total pregnancies: 2 Full term: 2 History of abnormal pap smear: No Date of Mammogram: 09/25/24 (bi rad 1) Physical Exam Vital Signs: Last Vital Signs BP 120/72 11/26/24 13:50 BMI result Body Mass Index 30.9 Const General: healthy appearing, comfortable, no acute distress, well developed and alert Nutritional Appearance: average body habitus Orientation/consciousness: patient oriented x3 Limitations: no limitations HEENT Head: Yes normocephalic Neck Neck: Yes normal visual inspection Chest Chest palpation & inspection: normal inspection of the chest Breast/axilla inspection: normal inspection of the breasts and normal inspection of the axillae Breast/axilla palpation: normal palpation of the breasts and normal palpation of the axillae Resp Effort & Inspection: normal respiratory effort GI Inspection: Yes normal to inspection, No Abdominal wall edema and No distended Palpation (GI): Soft to palpation and nontender Other: External exam within normal limits vagina pink and moist cervix multiparous pink smooth with ectropion visible. Cervix long close thick mobile nontender uterus anteverted nontender adnexa nontender fair tone with Kegel urged her to do more Kegel exercises General: Yes bladder normal to palpation External Female Exam: normal external appearance and normal appearance of the urethra Speculum Exam - Vagina: normal appearance of the vagina, normal palpation and normal vaginal discharge Speculum Exam - Cervix: normal appearance of the cervix, normal palpation and nontender Bimanual exam- vagina & uterus: normal bimanual exam, normal palpation, uterine size normal, bladder normal to palpation, consistency normal, normal palpation, uterine mobility normal, uterine shape normal, No Cervical tenderness present, non-tender and no cervical motion tenderness Bimanual Exam- Adnexa, other: normal adnexae, no masses, normal and No adnexal tenderness Neuro General: patient oriented x3 Assessment & Plan Assessment & Plan (1) Well woman exam with routine gynecological exam: Code(s): Z01.419 - Encounter for gynecological examination (general) (routine) without abnormal findings Category: Medical (2) Cervical cancer screening: Code(s): Z12.4 - Encounter for screening for malignant neoplasm of cervix Category: Medical (3) Encounter for screening examination for sexually transmitted disease: Code(s): Z11.3 - Encounter for screening for infections with a predominantly sexual mode of transmission Category: Medical (4) Obesity (BMI 30.0-34.9): Comment: Is losing weight gradually with Wegovy Code(s): E66.811 - Obesity, class 1 Category: Medical Plan -----Discussed in this visit the following: healthy balanced diet, regular and consistent exercise, getting recommended health screens, doing the best she can for her particular health concerns, kegel exercises, pap smear screening and followup recommendations, mammography screening and SBE, normal changes in cycles in her life stage--- . Patient says she just recently had a mammogram ordered by her primary care provider.. She is feeling very good about the weight loss with the injectable medication. She was concerned about an alteration in shape of her abdomen and she talked about it with her primary in her primary ordered an ultrasound of the area but nothing unusual was found. It is an asymmetry in the adipose above her waist on the left side. I suggested that as she loses weight and keeps doing her abdominal exercises which she is doing that things may even out and also she may want to consider consulting with a corporate sales trainer or someone to see if there is a way she is moving that is asymmetrical that could be causing the muscular/adipose/musculoskeletal imbalance. Medications: Discontinued ketorolac Patient received Toradol in the emergency room. Discontinued Reason: Patient Completed Course 10 mg PO Q6H PRN 20 tabs 0RF pain 5 days Coding Level of Care Code New Pt Prev Care 40-64y(99808) Diagnoses Well woman exam with routine gynecological exam Z01.419 Cervical cancer screening Z12.4 Encounter for screening examination for sexually transmitted disease Z11.3 Obesity (BMI 30.0-34.9) E66.811
[2024-11-26 13:50] VITALS: BP 120/72; BMI 30.9
--- OUTSIDE RECORDS SUMMARY | 2024-11-26 16:02 | XMS_ITS | Encounter Summary ---
Author Organization [employer] Address [address] [place] [address] Care Team Providers Care Metal Coater Name Role Phone Kassy Land MD Primary Care Provider [phone] Reason for Visit * Reason Comments Med Refill Encounter Details Date Type Department Care Team ([facility] st Contact Info) Description 10/23/2024 Refill [facility] [address] [place], [place] [phone] Kassy Land MD [address] [place], [place] [phone] Class 2 severe obesity due to excess [...] as of this encounter Plan of Treatment Not on file documented as of this encounter Visit Diagnoses Diagnosis Class 2 severe obesity due to excess calories with serious comorbidity and body mass index (BMI) of 35.0 to 35.9 in adult (CMS/HCC) documented in this encounter Additional Health Concerns Assessment Noted Time PHQ-9 Depression Total Score: 21 025 1:48 PM EST documented as of this encounter Care Teams Metal Coater Relationship Specialty Start Date End Date Kassy Land MD [address] [place] [address] PCP - General Family Medicine 08/13/18 documented as of this encounter
--- OUTSIDE RECORDS SUMMARY | 2024-11-26 16:02 | XMS_ITS | Encounter Summary ---
Author Organization [employer] Address [address] [place] [address] Care Team Providers Care Manufacturing Applications Engineer Name Role Phone Kassy Land MD Primary Care Provider Reason for Visit * Reason Onset Date Comments Med Refill 11/24/2024 Encounter Details Date Type Department Care Team (Late st Contact Info) Description 11/24/2024 Refill [facility] [address] [place], [place] [phone] Kassy Land MD [address] [place] [address] Social History Tobacco Use Types Packs/Day Years [...] encounter Miscellaneous Notes * Telephone Encounter - Julienne Enamorado LPN - 11/24/2024 1:08 PM EDT PCP VAC. Next dose pended please review. Last seen 09/18/24. * Telephone Encounter - Sheldon Abdi - 11/24/2024 12:25 PM EDT TC from pt requesting medication refill. Medications needing refill : Semaglutide-Weight Management 1.7 MG/0.75ML solution auto-injector To be sent to: [id number] [place], [place] - [address] [facility] documented in this encounter Plan of Treatment Not on file documented as of this encounter Visit Diagnoses Not on filedocumented in this encounter Additional Health Concerns Assessment Noted Time PHQ-9 Depression Total Score: 21 025 1:48 PM EST documented as of this encounter Care Teams Manufacturing Applications Engineer Relationship Specialty Start Date End Date Kassy Land MD [address] [place] [address] PCP - General Family Medicine 08/13/18 documented as of this encounter
--- OUTSIDE RECORDS SUMMARY | 2024-11-26 16:02 | XMS_ITS | Encounter Summary ---
Author Organization [employer] Address [address] [place] [address] Care Team Providers Care Subscription Clerk Name Role Phone Kassy Land MD Primary Care Provider [phone] Reason for Visit * Reason Onset Date Comments Lab Orders 11/02/2022 Encounter Details Date Type Department Care Team ([facility] st Contact Info) Description 11/02/2022 Telephone [facility] [address] [place], [place] [phone] Kassy Land MD [address] [place], [place] [phone] Lab Orders Social History Tobacco Use Types [...] 4:30 PM EDT Tc from porter with [facility] requesting an order for an MRI for the brain with out contrast. NPI # [id number] documented in this encounter Plan of Treatment Not on file documented as of this encounter Visit Diagnoses Not on filedocumented in this encounter Care Teams Subscription Clerk Relationship Specialty Start Date End Date Kassy Land MD [address] [place] [id number] PCP - General Family Medicine 08/13/18 documented as of this encounter
--- OUTSIDE RECORDS SUMMARY | 2024-11-26 16:02 | XMS_ITS | Encounter Summary ---
Author Organization [employer] Address [address] [facility] 7t [place] [address] Care Team Providers Care Information Security Consultant Name Role Phone Kassy Land MD Primary Care Provider [phone] Reason for Referral * Imaging (Routine) - Closed Specialty Diagnoses / Procedures Referred By Leo verdugo Referred To Contact Radiology Diagnoses Left upper quadrant pain Procedures US Abdomen Limited Kassy Land MD [address] [place] [address] Phone: tel: fax: [address] Phone: tel: fax: Referral ID Status Reason Start Date Expiration Date Visits Re quested Visits Authorized [id number] Closed 09/25/2024 09/25/2025 1 1 Encounter Details Date Type Department Care Team (Late st Contact Info) Description 09/25/2024 Orders Only [facility] [address] [place] [address] Kassy Land MD [address] [place], [place] [phone] Left upper quadrant pain (Primary Dx) Social [...] on file documented as of this encounter Procedures Procedure Name Priority Date/Time Associated Diagnosis Comments US ABDOMEN LIMITED Routine 10/10/2024 5: 14 PM EST Left upper quadrant pain BI MAMMOGRAM SCREENING TOMOSYNTHESIS BILATERAL Routine 09/25/2024 8:25 AM EST documented in this encounter Results * US Abdomen Limited (10/10/2024 5:14 PM EST) Anatomical Region Laterality Modality Abdomen Ultrasound 10/10/2024 5:14 PM EST Narrative 10/10/2024 5:16 PM EST ? [facility] ?[address] ? [place] [address] ? Ultrasound Report ? Signed ? Patient: Felton,Della ?MR#: [id number] ? : 1985 ?Acct:[id number] ? Age/Sex: 39 / F ?ADM Date: 10/10/24 ? Loc: HO.HMGCX ? Attending Dr: Kassy Land MD ? Ordering Physician: Kassy Land MD ?? Date of Service: 10/10/24 ?? Procedure(s): US abdomen limited ?? Accession Number(s): [id number] ? cc: Kassy Land MD ? CLINICAL HISTORY: LUQ pain. ??Pt feels mass. ??Tender in LUQ, but no discrete mass. ? US abdomen limited ? Comparison: None ? Findings: ?? The spleen is 10 cm in length and is unremarkable. ?? The left kidney is 11.2 cm in length and is unremarkable. ?? There are no abnormal masses or fluid collections. ? IMPRESSION: ?? Unremarkable limited abdominal ultrasound. ? This document has been electronically signed by: Will Dunne MD on ?? 10/10/2024 17:14:57 ? Dictated By: ?Will Dunne MD ? Signed By: ?<Electronically signed by Will Dunne MD in OV> ?10/10/24 1715 ? DD/ 1714 ? TD/TT: 10/10/241713 ? Software Analyst: ? Procedure Note Donnachoter, Image - 10/10/2024 [facility] [address] [place] [address] [place] [address] Ultrasound Report Signed Patient: Dennis Felton#: [id number] : 1985Acct:[id number] Age/Sex: 39 / FADM Date: 10/10/24 Loc: HO.HMGCX Attending Dr: Kassy Land MD Ordering Physician: Kassy Land MD Date of Service: 10/10/24 Procedure(s): US abdomen limited Accession Number(s): [id number] cc: Kassy Land MD CLINICAL HISTORY: LUQ pain. Pt feels mass. Tender in LUQ, but nodiscrete mass. US abdomen limited Comparison: None Findings: The spleen is 10 cm in length and is unremarkable. The left kidney is 11.2 cm in length and is unremarkable. There are no abnormal masses or fluid collections. IMPRESSION: Unremarkable limited abdominal ultrasound. This document has been electronically signed by: Will Dunne MD on 10/10/2024 17:14:57 Dictated By: Will Dunne MD Signed By: <Electronically signed by Will Dunne MD in OV> 10/10/241714 DD/ 13 TD/TT: 10/10/241713 Software Analyst: us Kassy Land MD IMG US PROCEDURES Final Result * BI Mammogram Screening Tomosynthesis Bilateral (09/25/2024 8:25 AM EST) Anatomical Region Laterality Modality Breast Bilateral Mammography 09/25/2024 8:25 AM EST Narrative 10/03/2024 4:53 PM EST ? [facility] [place] ? [address] ?[place] [address] ? Mammography Report ? Signed ? Patient: Felton,Della ?MR#: [id number] ? : 1985 ?Acct:[id number] ? Age/Sex: 39 / F ?ADM Date: /13/25 ? Loc: HO.MAMMO ? Attending Dr: Kassy Land MD ? Ordering Physician: Kassy Land MD ?Results: 1Negative ? Date of Service: 09/25/ ?Follow Up: 1 Year From Orig ?? inal Mammogram ? Procedure(s): MM tomosynthesis screening BI ?? Accession Number(s): [id number] ? cc: Kassy Land MD ? EXAMINATION: [...] DD/ 4 ? TD/TT: 09/25/24 0843 ? Software Analyst: ? Procedure Note Nereida, Florian - 10/03/2024 [facility] [address] [place] [address] [place] [address] Mammography Report Signed Patient: Delilah FeltonR#: [id number] : 1985Acct:[id number] Age/Sex: 39 / FADM Date: 09/25/24 Loc: HO.MAMMO Attending Dr: Kassy Land MD Ordering Physician: Kassy Land MDResults: 1Negative Date of Service: 09/25/24Follow Up: 1 Year From [facility] ina Mammogram Procedure(s): MM tomosynthesis screening BI Accession Number(s): [id number] cc: Kassy Land MD EXAMINATION: MM SCREENING [...] Sherice Mueller DO 10/03/2024 04:49 PM EST Dictated By: Sherice Mueller DO Signed By: <Electronically signed by Sherice Mueller DO in OV> 10/03/24 1649 DD/ 0825 TD/TT: 09/25/24 0843 Software Analyst: us Kassy Land MD IMG BI PROCEDURES Final Result documented in this encounter Visit Diagnoses Diagnosis Left upper quadrant pain- Primary Abdominal pain, left upper quadrant documented in this encounter Additional Health Concerns Assessment Noted Time PHQ-9 Depression Total Score: 21 025 1:48 PM EST documented as of this encounter Care Teams Information Security Consultant Relationship Specialty Start Date End Date Kassy Land MD [address] [place] [phone] PCP - General Family Medicine 08/13/18 documented as of this encounter
--- OUTSIDE RECORDS SUMMARY | 2024-11-26 16:02 | XMS_ITS | Clinical Summary ---
Author Organization [employer] Address [address] [facility] [address] 7[address] [place] [address] Care Team Providers Care Health Care Administrator Name Role Phone Kassy Land MD Primary Care Provider [phone] Allergies Active Allergy Reactions Criticality Noted Date Comments Amitriptyline 06/24/2013 Gabapentin 02/05/2012 Sumatriptan High 06/24/2013 Other reaction(s): ITCHINESS, DIFFICULTY BREATHING Medications cyclobenzaprine (Flexeril) 5 MG tablet Take 1 or 2 tablets at bedtime as needed for muscle spasm 60 tablet 3 09/10/19 24 Active propranolol (Inderal) 20 MG tablet Take 1 tablet by mouth 30 - 60 minutes prior to anxiety-provoking situation 30 tablet 11 05/13/20 24 Active hydrOXYzine pamoate (Vistaril) 25 MG capsule Take 1 capsule (25 mg) by mouth every 6 (six) hours if needed for anxiety. 30 capsule 1 06/20/20 24 Active Acetaminophen 500 MG capsule Take 2 capsules (1,000 mg) by mouth every 8 (eight) hours if needed for mild pain, moderate pain, headaches or fever. 60 capsule 1 09/18/19 25 Active Nurtec 75 MG tablet dispersibleIndi cations:Migrain e without status migrainosus, not intractable, unspecified migraine type DISSOLVE 1 TABLET ON THE TONGUE EVERY OTHER DAY NEEDED FOR MIGRAINE HEADACHE DISSOLVE ON TONGUE 8 tablet 3 09/18/19 25 Active diclofenac sodium 3 % gel Apply to affected painful areas once or twice daily 100 g 1 09/19/19 25 Active Semaglutide-Lonnie ght Management (Wegovy) 2.4 MG/0.75ML solution auto-injector INJECT ONE PEN (= 2.4 MG) SUBCUTANEOUSLY ONCE A WEEK 2 mL 11/25/19 25 Active Semaglutide-Lonnie ght Management 1.7 MG/0.75ML solution auto-injectorIn dications:Class 2 severe obesity due to excess calories with serious comorbidity and body mass index (BMI) of 35.0 to 35.9 in adult ([facility]) Inject 0.75 mL (1.7 mg) under the skin every 7 (seven) days. 2 mL 10/18/19 25 025 Discontin ued(Other ) Active Problems Problem Noted Date Diagnosed Date [...] or plan. - Continue counseling with current [facility] provider: Naomi Weiner [address] - Previously tried venlafaxine and hydroxyzine, which she self-discontinued - She is prescribed propranolol for anxiety (patient requested in May 2024), - She contracted her safety today. She has a crisis number and has her long-term therapist. Assessment & Plan (06/20/2024 11:17 AM EST): - with anxiety symptoms - Continue counseling with current [facility] provider: Naomi Weiner [address] - Previously tried venlafaxine and hydroxyzine, which she self-discontinued - She is requesting propranolol, will prescribe as patient requested Assessment & Plan (09/09/2023 6:40 PM EST): - Continue counseling with current [facility] provider: Naomi Weiner [facility] [address] [facility] - Restart venlafaxine - Restart hydroxyzine prn Assessment & Plan (09/20/2022 1:59 PM EST): - Continue counseling with current [facility] provider: Naomi Weiner [facility] [address] [facility] - Restart venlafaxine - Restart hydroxyzine prn Benign paroxysmal positional vertigo 08/04/2015 Hypertrophy of tonsils 10/30/2013 Chronic headache disorder 08/14/2012 Assessment & Plan (09/19/2024 6:12 PM EST): - multifactorial - tension, vestibular, sinus, and migraine - following with [facility] neurology, last seen in Apr [...] vestibular, sinus, and migraine - following with [facility] neurology, last seen in Apr [...] vestibular, sinus, and migraine - following with [facility] neurology, last seen in October [...] (09/19/2024 6:16 PM EST): Currently following with [facility] neurology service, last seen on 10/26/22 [...] (05/13/2024 3:55 PM EDT): Currently following with [facility] neurology service, last seen on 10/26/22 [...] (09/14/2023 3:44 PM EST): Currently following with [facility] neurology service, last seen on 10/26/22 [...] (11/21/2022 3:52 PM EDT): Currently following with [facility] neurology service, last seen on 10/26/22 [...] (09/20/2022 1:58 PM EST): Currently following with [facility] neurology service -Previously tried medications --Topamax [...] Encounters Date Type Department Care Team Description 11/24/2024 Refill [facility] [address] [place] [address] Kassy Land MD 10/31/2024 11:30 AM EDT Office Visit [facility] [address] [place] [address] Rupa Carrillo MD Androgenic alopecia (Primary Dx) 10/31/2024 Travel 10/23/2024 Refill [facility] [place] [address] Kassy Land MD Class 2 severe obesity due to excess calories with serious comorbidity and body mass index (BMI) of 35.0 to 35.9 in adult ([facility]) 10/17/2024 Telephone [facility] [address] [place] [phone] Kassy Land MD Medication Question 10/17/2024 Refill [facility] [address] [place], [place] [phone] Kassy Land MD Class 2 severe obesity due to excess calories with serious comorbidity and body mass index (BMI) of 35.0 to 35.9 in adult ([facility]) 09/30/2024 Telephone [facility] [address] [place] [phone] Kassy Land MD Appointment Request 09/25/2024 Orders Only [facility] [address] [place] [phone] Kassy Land MD Left upper quadrant pain (Primary Dx) 09/25/2024 Telephone [facility] [address] [place] [phone] Kassy Land MD as abd wall soft tissue order 09/18/2024 10:30 AM EST Office Visit [facility] [address] [place] [phone] Kassy Land MD Routine general medical examination at a health care facility (Primary Dx); Elevated BP without diagnosis of hypertension; Chronic nonintractable headache, unspecified headache type; Class 2 severe obesity due to excess calories with serious comorbidity and body mass index (BMI) of 35.0 to 35.9 in adult ([facility]); Sleep disturbance; Migraine without status migrainosus, [...] upper quadrant pain 09/18/2024 Travel 09/15/2024 Refill [facility] [address] [place] [address] Kassy Land MD Class 2 severe obesity due to excess calories with serious comorbidity and body mass index (BMI) of 35.0 to 35.9 in adult ([facility]) 09/04/2024 Patient Outreach [facility] [address] [place] [address] Kassy Land MD Pre-visit Planning (Pre-visit planning - LVM ) from Last 3 Months Immunizations Name Administration [...] Sign Reading Time Taken Comments Blood Pressure 130/81 10/31/2024 11:36 AM EDT Pulse 99 10/31/2024 11:36 AM EDT Temperature 35.3 ??C (95.5 ??F) 10/31/2024 1 1:36 AM EDT Respiratory Rate 12 10/31/2024 11:3 6 AM EDT Oxygen Saturation 98% 09/18/2024 11: 09 AM EST Inhaled Oxygen Concentration - - Weight 74.8 kg (164 lb 12.8 oz) 025 11:36 AM EDT Height 149.8 cm (4' 10.96 ) 09/18/2024 11:09 AM EST Body Mass Index 33.33 09/18/2024 11:09 AM EST Plan of Treatment Health Maintenance Due Date Last Done Comments HIV Screening 1985 Hepatitis C Screening 2001 Hepatitis B Vaccines (1 of 3 - 19+ 3-dose series) 2002 Pap Smear 2004 Cervical Cancer Screening 2013 HPV/Cotest 2013 COVID-19 Vaccine ( season) 2024 12/16/2020, 12/16/2020, 11/25/2020, Additional history exists Depression Monitoring 03/18/2025 09/18/2024, 025 Alcohol/Substance Use Screening 09/18/2025 09/18/2024 Depression Screening [...] Recently Relevant to Health Maintenance Results * US Abdomen Limited (10/10/2024 5:14 PM EST) Anatomical Region Laterality Modality Abdomen Ultrasound 10/10/2024 5:14 PM EST Narrative 10/10/2024 5:16 PM EST ? [facility] ?[address] ? [place] [address] ? Ultrasound Report ? Signed ? Patient: Felton,Della ?MR#: [id number] ? : 1985 ?Acct:[id number] ? Age/Sex: 39 / F ?ADM Date: 10/10/24 ? Loc: HO.HMGCX ? Attending Dr: Kassy Land MD ? Ordering Physician: Kassy Land MD ?? Date of Service: 10/10/24 ?? Procedure(s): US abdomen limited ?? Accession Number(s): [id number] ? cc: Kassy Land MD ? CLINICAL [...] signed by Will Dunne MD in OV> ?10/10/241714 ? DD/ 13 ? TD/TT: 10/10/241713 ? Home Service Technician: ? Procedure Note Donotuseinterpreter, Image - 10/10/2024 [facility] [address] [place] [address] [place] [address] Ultrasound Report Signed Patient: Dennis Felton#: [id number] : 1985Acct:[id number] Age/Sex: 39 / FADM Date: 10/10/24 Loc: .HMGX Attending Dr: Kassy Land MD Ordering Physician: Kassy Land MD Date of Service: 10/10/24 Procedure(s): US abdomen limited Accession Number(s): [id number] cc: Kassy Land MD CLINICAL HISTORY: LUQ [...] in OV> 10/10/241714 DD/ 13 TD/TT: 10/10/241713 Home Service Technician: us Kassy Land MD IMG US PROCEDURES Final Result * BI Mammogram Screening Tomosynthesis Bilateral (09/25/2024 8:25 AM EST) Anatomical Region Laterality Modality Breast Bilateral Mammography 09/25/2024 8:25 AM EST Narrative 10/03/2024 4:53 PM EST ? [facility] [place] ? [address] ?[place] [address] ? Mammography Report ? Signed ? Patient: Felton,Della ?MR#: [id number] ? : 1985 ?Acct:[id number] ? Age/Sex: 39 / F ?ADM Date: 02/13/25 ? Loc: HO.MAMMO ? Attending Dr: Kassy Land MD ? Ordering Physician: Kassy Land MD ?Results: 1Negative ? Date of Service: 09/25/24 ?Follow Up: 1 Year From Orig ?? inal Mammogram ? Procedure(s): MM tomosynthesis screening BI ?? Accession Number(s): [id number] ? cc: Kassy Land MD ? EXAMINATION: [...] ??Sherice Mueller DO ??10/03/2024 04:49 PM EST ?? RP ? Dictated By: ?Sherice Mueller DO ? Signed By: ?<Electronically signed by Sherice Mueller, DO in OV> ? 10/03/24 1649 ? DD/ 0825 ? TD/TT: 09/25/24 0843 ? Home Service Technician: ? Procedure Note Donotuseinterpreter, Image - 10/03/2024 [facility] [address] [place] [address] Mammography Report Signed Patient: Dennis Felton#: [id number] : 1985Acct:[id number] Age/Sex: 39 / FADM Date: 09/25/24 Loc: RAYA Attending Dr: Kassy Land MD Ordering Physician: Kassy Land MDResults: 1Negative Date of Service: 09/25/24Follow Up: 1 Year From Orig ina Mammogram Procedure(s): MM tomosynthesis screening BI Accession Number(s): [id number] cc: Ksasy Land MD EXAMINATION: MM SCREENING DIGITAL BREAST [...] by: Sherice Mueller DO 10/03/2024 04:49 PM [facility] Dictated By: Sherice Mueller DO Signed By: <Electronically signed by Sherice Mueller DO in OV> 10/03/24 1649 DD/ 0825 TD/TT: 09/25/24 0843 Home Service Technician: Kassy Land MD IMG BI PROCEDURES Final Result * (ABNORMAL) Lipid Panel with Reflex to Direct LDL (05/14/2024 11:11 AM EDT) Triglycerides 162(H) <150 mg/dL [facility] Comment:Desirable Triglyceri de: less than 150 mg/dLBorderline High Triglyceride 150-199 mg/dLHigh Triglyceride: 200-499 mg/dLVery High Triglyceride: greater than or equal to 5OO mg/dL Cholesterol 175 <200 mg/dL [facility] Comment:Desirable Cholestero l: less than 200 mg/dLBorderline High Cholesterol: 200-239 mg/dLHigh Cholesterol: greater than 239 mg/dL LDL Cholesterol Calculated 101(H) <100 mg/dL [facility] Comment:Desirable LDL: less than 100 mg/dLNear Optimal/Above Optimal LDL: 110- 129 mg/dLBorderline High LDL: 130-159 mg/dLHigh LDL: 160-189 mg/dLVery High LDL: greater than or equal to 190 mg/dL HDL Cholesterol 42 >40 mg/dL [facility] Comment:Desirable HDL: great er than 40 mg/dL Note: This HDL assay may give artificially low results in patients with liver disease. Blood 05/14/2024 11:1 1 AM EDT 05/14/2024 1:41 PM EDT us Kassy Land MD LAB BLOOD ORDERABLES Final Resul t [facility] [address] [place] [phone] from Last 3 Months or Most Recently Relevant to Health Maintenance Insurance [facility] Care Teams Health Care Administrator Relationship Specialty Start Date End Date Kassy Land MD [address] [place] [phone] PCP - General Family Medicine 08/13/18
== END 2024-11-26 14:49 | disposition home or self-care (01) ==
LOC: HO.HWSM 13:28
PROVIDERS: PCP Family Medicine; Visit Provider Advanced Practice Midwife
DX: Z01.419 Encounter for gynecological examination (general) (routine) without abnormal findings (principal); E66.811 Obesity, class 1
CPT/HCPCS: 99386; 99459

== ENCOUNTER 2024-11-26 14:45 | Outpatient (REF) | payer OTHER, SELFPAY ==
[2024-12-02 10:12] LABS: HPV Genotype 16 Negative (Negative); HPV Genotype 18 Negative (Negative); HPV High Risk Negative (Negative)
== END 2024-11-26 14:46 | disposition home or self-care (01) ==
LOC: HO.LNP 14:45
PROVIDERS: Visit Provider Advanced Practice Midwife
DX: Z12.4 Encounter for screening for malignant neoplasm of cervix (principal); Z11.51 Encounter for screening for human papillomavirus (HPV)
CPT/HCPCS: 87626; 88175

== ENCOUNTER 2024-12-16 18:48 | Emergency (ER) | payer OTHER, SELFPAY ==
[2024-12-16 19:04] VITALS: BP 112/71; PULSE 90; RESP 16; TEMP 36.1; O2SAT 98; BMI 30.3
--- NOTE | 2024-12-16 19:06 | ED.GENADULT ---
HPI - General Adult General Chief complaint: Back Pain/Injury Stated complaint: Back pain Time Seen by Provider: 12/16/24 21:55 Source: patient, RN notes reviewed and old records reviewed Mode of arrival: ambulatory Limitations: no limitations History of Present Illness ED Provider: April ALMARAZ narrative: 39-year-old female presents for evaluation of back pain. Patient reports she has had mostly right-sided back pain for the last month and a half. She denies any specific injury. The pain is worse with lying down. 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 She does have a history of chronic back pain Denies any abdominal pain nausea vomiting, urinary symptoms Denies any fevers, chills Related Data Home Medications ?Medication ?Instructions ?Recorded ?Confirmed semaglutide (weight loss) 1.7 mg subcut 11/26/24 11/26/24 mg/0.75 mL subcutaneous pen injector (Nette) Previous Rx's ?Medication ?Instructions ?Recorded cyclobenzaprine 5 mg tablet 5 mg PO BEDTIME PRN muscle spasm 11/14/21 #4 tabs rofdgxwtkj-xlzwlzkpbeupz-twwrzdgc 1 cap PO Q8H PRN headache #10 caps 03/17/24 50 mg-300 mg-40 mg capsule (Fioricet) cefuroxime axetil 250 mg tablet 250 mg PO Q12H #10 tabs 12/16/24 cyclobenzaprine 10 mg tablet 10 mg PO TID PRN muscle spasm #20 12/16/24 tabs dexamethasone 4 mg tablet 4 mg PO BID #6 tabs 12/16/24 Allergies Allergy/AdvReac Type Severity Reaction Status Date / Time sumatriptan [From IMITREX] Allergy Unknown AGITATION Verified 12/16/24 19:07 Review of Systems Constitutional: Constitutional: Denies body ache(s), Denies chills and Denies headache(s) Eyes: Eyes: Denies blurry vision ENT: Denies vertigo, Denies dizziness and Denies headache(s) Cardiovascular: Cardiovascular: Denies chest pain and Denies dyspnea Respiratory: Respiratory: Denies cough and Denies dyspnea Gastrointestinal: Gastrointestinal: Denies abdominal pain, Denies nausea and Denies vomiting Genitourinary: Genitourinary: Denies urinary frequency, Denies difficulty voiding, Denies dysuria, Denies pelvic pain and Denies urinary hesitancy Musculoskeletal: Musculoskeletal: Reports back pain, Denies arthralgias, Denies joint swelling, Denies limited range of motion and Reports radiating pain into limb Neurologic: Denies vertigo, Denies dizziness and Denies headache(s) [facility] Past Medical History Medical History (Updated 12/17/24 @ 00:00 by Manny De La O) Migraine Anxiety Hypertension Asthma Family History Family History Sister Ovarian cancer Sister Ovarian cancer Social History Social History (Updated 11/26/24 @ 13:47 by Tammy Sims MA) Household Members: Children Unable to assess alcohol history related to: Unknown Smoked in Last 30 Days: No Use of substances other than those prescribed or required for medical reasons: Unknown Advance Directives: No Advance Directives Information Provided: No Do you have a plan to hurt others: No Plan Patient : No Current occupational status: employed 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 Vital Signs: Vital Signs - 24 hr 12/16/24 19:04 12/16/24 21:59 12/16/24 22:23 Temperature 97.0 F 98.3 F 98.3 F Pulse Rate 90 85 85 Respiratory Rate 16 20 20 Blood Pressure 112/71 112/80 112/80 Pulse Oximetry 98 98 98 Oxygen Delivery Method Room Air Room Air Room Air BMI result Body Mass Index 30.3 Const General: healthy appearing, comfortable, no acute distress, alert and awake Nutritional Appearance: well nourished Orientation/consciousness: patient oriented x3 HENMT Head: Yes normocephalic and Yes atraumatic Eyes Eyelids: Yes eyelids normal Conjunctivae: conjunctivae normal Sclerae: sclerae normal Corneas: corneas normal Pupils: Equal, round and reactive pupils present EOM: EOMs intact bilaterally Neck Neck: Yes full ROM Resp Effort & Inspection: normal respiratory effort, able to speak in complete sentences and not labored GI Inspection: No distended Palpation (GI): Soft to palpation, not firm, nontender, no guarding and not rigid Back/Spine/Pelvis Other: Tenderness in the right lumbar paraspinous region. No focal vertebral tenderness. No step-offs or deformities. Straight leg raise positive bilaterally Skin General skin exam: elasticity normal Neuro General: patient oriented x3 Cranial nerves: Yes Equal, round and reactive pupils present and Yes Bilaterally intact EOM present Cognition (Neuro): normal cognition Gait exam (Neuro): Normal gait present Motor exam (neuro): 5/5 motor strength present throughout Deep tendon reflexes (DTR's): Right patellar reflex intensity grade: 2+ and Left patellar reflex intensity grade: 2+ Extrem Other: Moving all extremities well without any obvious deformities Medications Administered Discontinued Medications Generic Name Dose Route Start Last Admin Trade Name Germanq PRN Reason Stop Dose Admin Cefuroxime Axetil 250 mg 12/16/24 22:14 12/16/24 22:35 Cefuroxime Axetil 250 Mg Tablet PO 12/16/24 22:15 250 mg ONCE ONE Administration Dexamethasone 4 mg 12/16/24 22:14 12/16/24 22:35 Dexamethasone 4 Mg Tablet PO 12/16/24 22:15 4 mg ONCE ONE Administration Ketorolac Tromethamine 30 mg 12/16/24 22:14 12/16/24 22:35 Ketorolac Tromethamine 30 Mg/Ml Vial IM 12/16/24 22:15 30 mg ONCE ONE Administration Medical Decision Making Medical Decision Making [facility] Narrative: 39-year-old female with a past medical history as above presents for evaluation of right back pain. She has a positive UA but her symptoms are not consistent with pyelonephritis. She has no fevers, no burning with urination. Her pain is reproducible on exam with a positive straight leg raise. She may have an incidental UTI, however I think your back pain that cause her presentation is likely due to musculoskeletal origin. Her labs are reassuring, there was no evidence of sepsis. There was no trauma or injury to warrant emergent imaging. No concerning findings to suggest cauda equina syndrome Differential Diagnosis Differential Diagnoses: The differential diagnosis associated with the presentation includes Muscle strain Radiculopathy Sciatica UTI Pyelonephritis Lab Data [facility] Lab Attestation statement: I reviewed the patient's lab results. No leukocytosis or anemia. Normal platelet count. No electrolyte abnormalities warranting intervention. Urinalysis positive for UTI 12/16/24 19:40 12/16/24 19:40 Labs: Lab Results 12/16/24 Range/Units 19:40 WBC 7.5 (4.8-10.8) X10*3/uL RBC 4.92 (4.20-5.50) X10*6/uL Hgb 13.2 (12.0-16.0) g/dl Hct 39.6 (37.0-47.0) % MCV 80.5 (80.0-98.0) fL MCH 26.8 L (27.0-33.0) pg MCHC 33.3 (31.0-35.0) g/dl RDW 13.0 (11.0-16.0) % Plt Count 241 (160-400) X10*3/uL MPV 10.4 (9.4-12.3) fL Immature Gran % (Auto) 0.1 (0.0-0.4) % Neut % (Auto) 49.3 (45-73) % Lymph % (Auto) 39.5 (20-40) % [place] % (Auto) 9.3 (2-11) % Eos % (Auto) 0.7 (0-4) % Baso % (Auto) 1.1 (0-2) % Lymph # (Auto) 2.9 (1.2-4.9) X10*3/uL [place] # (Auto) 0.7 (0.1-1.2) X10*3/uL Eos # (Auto) 0.1 (0.0-0.4) X10*3/uL Baso # (Auto) 0.1 (0.0-0.2) X10*3/uL Abs Immat Gran (auto) 0.01 (0.00-0.03) X10*3/uL Absolute Neuts (auto) 3.7 (2.0-8.3) x10*3/uL Absolute Nucleated RBC 0.000 (0.0-0.012) X10*3/uL Nucleated RBC % (auto) 0.0 (0.0-0.2) /100WBC Sodium 140 (135-145) mmol/L Potassium 3.4 (3.3-5.1) mmol/L Chloride 107 (96-108) mmol/L Carbon Dioxide 25 (22-29) mmol/L Anion Gap 11 L (12-20) BUN 7 L (9-16) mg/dL Creatinine 0.60 (0.5-1.4) mg/dL Estim Creat Clear Calc 108.0 Estimated GFR > 60 Random Glucose 87 (60-115) mg/dL Calcium 9.2 (8.4-10.2) mg/dL Total Bilirubin 0.4 (0.0-1.0) mg/dL AST 26 (5-31) U/L ALT 16 (0-31) U/L Alkaline Phosphatase 63 (39-117) U/L Total Protein 7.7 (6.5-8.0) g/dL Albumin 4.2 (3.5-5.0) g/dL Beta HCG, Quant < 2 mIU/mL Urine Color Dark Yellow Urine Appearance Cloudy Urine pH 8.0 (5.0-9.0) Ur Specific [place] 1.025 (1.005-1.025) Urine Protein 30 (1+) H (Neg-Trace) mg/dL Urine Glucose (UA) Negative (Negative) mg/dL Urine Ketones Trace (Negative) mg/dL Urine Blood Negative (Negative) Urine Nitrite Negative (Negative) Ur Leukocyte Esterase Moderate (2+) H (Negative) Urine RBC 0-2 (0-2) /HPF Urine WBC >50 H (0-5) /HPF Ur Squamous Epith Cells 11-20 (0-2) /HPF Urine Bacteria 4+ (None Seen) Hyaline Casts 3-5 (0-2) /LPF Urine Test NEGATIVE (NEGATIVE) Discharge Plan Discharge Clinical Impression: Lumbar radiculopathy, UTI (urinary tract infection) Patient Disposition: Home, Self-Care Instructions: Urinary Tract Infection in Women (ED), Lumbar Radiculopathy (ED) Additional Instructions: Your blood work was reassuring today. Your urinalysis was consistent with a UTI. I do not feel that this is the cause of your back pain. Your back pain is most likely related to a herniated disc or a pinched nerve. Take the cefuroxime twice daily for 5 days to treat the UTI. Take dexamethasone twice daily for 3 days to decrease inflammation ultimately help her back pain. You may use cyclobenzaprine as needed for muscle spasms. This may make you drowsy, do not drink alcohol or drive after taking it Prescriptions: New cyclobenzaprine 10 mg tablet 10 mg PO TID PRN (Reason: muscle spasm) Qty: 20 0RF dexamethasone 4 mg tablet 4 mg PO BID Qty: 6 0RF cefuroxime axetil 250 mg tablet 250 mg PO Q12H Qty: 10 0RF No Action cyclobenzaprine 5 mg tablet 5 mg PO BEDTIME PRN (Reason: muscle spasm) Qty: 4 0RF gwdabdylfl-upukvwjkuhght-dhiu [Fioricet] 50-300-40 mg capsule 1 cap PO Q8H PRN (Reason: headache) Qty: 10 0RF Wegovy 1.7 mg/0.75 mL pen injector subcut Interventions: ED Discharge Assessment Last Done: 12/16/24 22:23 Discharge Date/Time: 12/16/24 22:40 Print Language: [place]
[2024-12-16 19:45] LABS: MANUAL DIFF FLAG NO
[2024-12-16 19:46] LABS: Basophils Absolute Auto 0.1 X10*3/uL (0.0-0.2); Basophils Percent Auto 1.1 % (0-2); Eosinophils Absolute Auto 0.1 X10*3/uL (0.0-0.4); Eosinophils Percent Auto 0.7 % (0-4); Hematocrit 39.6 % (37.0-47.0); Hemoglobin 13.2 g/dl (12.0-16.0); Imm Gran Abs Auto 0.01 X10*3/uL (0.00-0.03); Imm Gran Pct Auto 0.1 % (0.0-0.4); Lymphocytes Absolute Auto 2.9 X10*3/uL (1.2-4.9); Lymphocytes Percent Auto 39.5 % (20-40); Mean Corpuscular HGB Conc 33.3 g/dl (31.0-35.0); Mean Corpuscular Hemoglobin 26.8 pg (27.0-33.0); Mean Corpuscular Volume 80.5 fL (80.0-98.0); Mean Platelet Volume 10.4 fL (9.4-12.3); Monocytes Absolute Auto 0.7 X10*3/uL (0.1-1.2); Monocytes Percent Auto 9.3 % (2-11); Neutrophils Absolute Auto 3.7 x10*3/uL (2.0-8.3); Neutrophils Percent Auto 49.3 % (45-73); Platelet Count 241 X10*3/uL (160-400); Red Blood Count 4.92 X10*6/uL (4.20-5.50); White Blood Count 7.5 X10*3/uL (4.8-10.8)
[2024-12-16 19:48] LABS: Appearance Urine Cloudy; Color Urine Dark Yellow; Glucose Urine UA Negative (Negative); Leukocyte Esterase Urine Moderate (2+) (Negative); Nitrite Urine Negative (Negative); Specific Gravity - Urine 1.025 (1.005-1.025); UMIC TRIGGER UACC YES; UPreg QC Valid YES; Urine Blood Negative (Negative); Urine Ketones Trace mg/dL (Negative); Urine Pregnancy NEGATIVE (NEGATIVE); Urine Protein 30 (1+) mg/dL (Neg-Trace)
[2024-12-16 19:57] LABS: Bacteria Urine 4+ (None Seen); RBC Urine 0-2 /HPF (0-2); UACC Culture Trigger YES; WBC Urine >50 /HPF (0-5)
[2024-12-16 20:10] LABS: Alanine Aminotransferase 16 U/L (0-31); Albumin Level 4.2 g/dL (3.5-5.0); Alkaline Phosphatase 63 U/L (39-117); Anion Gap 11 (12-20); Aspartate Amino Transferase 26 U/L (5-31); Bilirubin Total 0.4 mg/dL (0.0-1.0); Blood Urea Nitrogen 7 mg/dL (9-16); Calcium 9.2 mg/dL (8.4-10.2); Carbon Dioxide 25 mmol/L (22-29); Chloride 107 mmol/L (96-108); Estimated Glomerular Filt Rate > 60; Glucose Random 87 mg/dL (60-115); Potassium 3.4 mmol/L (3.3-5.1); Sodium 140 mmol/L (135-145); Total Protein 7.7 g/dL (6.5-8.0)
[2024-12-16 20:11] LABS: HCG Quantitative < 2 mIU/mL
[2024-12-16 21:59] VITALS: BP 112/80; PULSE 85; RESP 20; TEMP 36.8; O2SAT 98
[2024-12-16 22:23] VITALS: BP 112/80; PULSE 85; RESP 20; TEMP 36.8; O2SAT 98
[2024-12-16] MEDS: Ketorolac Tromethamine 30 MG/ML VIAL IM (22:35)
[2024-12-16] MEDS: cefuroxime axetiL 250 MG TABLET PO (22:35)
[2024-12-16] MEDS: dexAMETHasone 4 MG TABLET PO (22:35)
== END 2024-12-16 22:40 | disposition home or self-care (01) ==
PROVIDERS: Physician Assistant; Emergency Provider Internal Medicine; PCP Family Medicine
DX: M54.50 Low back pain, unspecified (principal); Z79.899 Other long term (current) drug therapy
CPT/HCPCS: 36415; 80053; 81001; 81025; 84702; 85025; 87086; 96372; 99284; J1885; J8540

== ENCOUNTER 2025-05-13 09:47 | Outpatient (REF) | payer OTHER, SELFPAY ==
--- OUTSIDE RECORDS SUMMARY | 2025-05-13 09:00 | XMS_ITS | Encounter Summary ---
Author Organization [employer] Address [address] [place] [address] 7 [place] [address] Care Team Providers Care Automatic Fancy Machine Operator Name Role Phone Kassy Land MD Primary Care Provider [phone] Reason for Referral * Medications - Closed Specialty Diagnoses / Procedures Referred By Leo verdugo Referred To Contact Diagnoses Chronic depression Kassy Land MD [address] [place] [phone] Phone: tel: fax: Referral ID Status Reason Start Date Expiration Date Visits Re quested Visits Authorized [id number] Closed 1 1 Encounter Details Date Type Department Care Team ([facility] st Contact Info) Description 05/13/2025 9:00 AM EDT Office Visit [facility] MED[facility]INE [address] [place] [phone] Kassy Land MD [address] [place] [phone] Chronic depression (Primary Dx); Encounter for immunization; Screening for lipid disorders; Screening for diabetes mellitus; Immunity status testing; Vitamin deficiency; Class 1 obesity due to excess calories without serious comorbidity with body mass index (BMI) of 32.0 to 32.9 in adult Social History Tobacco Use Types Packs/Day Years Used Date Smoking Tobacco: Never Passive Smoke Exposure: Never Smokeless Tobacco: Never Depression Answer Date Recorded Patient Health Questionnaire-9 Score 14 05/13/2025 Patient Health Questionnaire-9 Score 14 05/13/2025 Last PHQ-9: Questionnaire Data Not on file 1 Housing Stability Answer Date Recorded What is [...] Answer Date Recorded Patient Health Questionnaire-2 Score 2 05/13/2025 Internet Access Answer Date Recorded Internet Access Q1 Yes 09/18/2024 Internet Access Q2 Not on file 09/18/2024 Comments No Sex and Gender Information Value Date Recorded Sex Assigned at Female 06/12/2022 10:16 AM EDT Legal Sex Female 10:16 AM EDT Gender Identity Female 06/12/2022 10:16 AM EDT Sexual Orientation Choose not to disclose 2021 10:16 AM EDT documented as of this encounter Last Filed Vital Signs Vital Sign Reading Time Taken Comments Blood Pressure 118/80 05/13/2025 9:05 AM EDT Pulse 93 05/13/2025 9:05 AM EDT Temperature 35.6 C (96.1 F) 05/13/2025 9:05 AM EDT Respiratory Rate 14 05/13/2025 9:05 AM EDT Oxygen Saturation 99% 05/13/2025 9:05 AM EDT Inhaled Oxygen Concentration - - Weight 76.4 kg (168 lb 6.4 oz) 05/13/2025 9:05 A M EDT Height 152.4 cm (5') 05/13/2025 9:05 AM EDT Body Mass Index 32.89 05/13/2025 9:05 AM EDT documented in this encounter Functional Status * Over the past 2 weeks, how often have you been bothered by any of the following problems? Question Answer Date of Assessment Author Patient Health Questionnaire -2 Score 2 05/13/2025 9:41 AM Crys Johnson MA * Little interest or pleasure in doing things Answer Date of Assessment Author Several days 05/13/2025 9:41 AM Manju Johnson MA * Feeling down, depressed, or hopeless Answer Date of Assessment Author Several days 05/13/2025 9:41 AM Manju Johnson MA * Trouble falling or staying asleep, or sleeping too much Answer Date of Assessment Author Nearly every day 05/13/2025 9:41 AM Manju Johnson MA * Feeling tired or having little energy Answer Date of Assessment Author More than half the days 05/13/2025 9:41 AM Manju Pacheco MA * Poor appetite or overeating Answer Date of Assessment Author More than half the days 05/13/2025 9:41 AM Manju Pacheco MA * Feeling bad about yourself - or that you are a failure or have let yourself or your family down Answer Date of Assessment Author More than half the days 05/13/2025 9:41 AM Manju Pacheco MA * Trouble concentrating on things, such as reading the newspaper or watching television Answer Date of Assessment Author Several days 05/13/2025 9:41 AM Manju Johnson MA * Moving or speaking so slowly that other people could have noticed? Or the opposite - being so fidgety or restless that you have been moving around a lot more than usual. Answer Date of Assessment Author Several days 05/13/2025 9:41 AM Manju Johnson MA * Thoughts that you would be better off or hurting yourself in some way Answer Date of Assessment Author Several days 05/13/2025 9:41 AM Manju Johnson MA * Patient Health Questionnaire-9 Score Answer Date of Assessment Author 14 05/13/2025 9:41 AM Manju Johnson MA * How difficult have these problems made it for you to do your work, take care of things at home, or get along with other people? Answer Date of Assessment Author Very difficult 05/13/2025 9:41 AM Manju Johnson MA * Over the last 2 weeks, how often have you been bothered by any of the following problems? Question Answer Date of Assessment Author Feeling nervous, anxious, or on edge 1 05/13/2025 9:42 AM Crys Johnson MA Not being able to stop or control worrying 2 05/13/2025 9:42 AM Crys Johnson MA Worrying too much about different things 2 05/13/2025 9:42 AM Crys Johnson MA Trouble relaxing 3 05/13/2025 9:42 AM Manju Pacheco MA Being so restless that it is hard to sit still 3 05/13/2025 9:42 AM Crys Johnson MA Becoming easily annoyed or irritable 2 05/13/2025 9:42 AM Crys Johnson MA Feeling afraid as if somethi ng awful might happen 2 05/13/2025 9:42 AM Crys Johnson MA HIEN-7 Total Score 15 05/13/2025 9:42 AM Manju Johnson MA documented as of this encounter Plan of Treatment Scheduled Orders Name Type Priority Associated Diagnoses Orde r Schedule Hemoglobin A1c Lab Routine Screening for diabetes mellitus Expected: 05/13/2025 (Approximate), Expires: 05/13/2026 Lipid Panel with Reflex to Direct LDL Lab Routine Screening for lipid disorders Expected: 05/13/2025 (Approximate), Expires: 05/13/2026 Vitamin D, 25-Hydroxy, Total, Immunoassay Lab Routine Vitamin deficiency Expected: 05/13/2025 (Approximate), Expires: 05/13/2026 Hepatitis B Surface Antibody, Qualitative Lab Routine Immunity status testing Expected: 05/13/2025 (Approximate), Expires: 05/13/2026 documented as of this encounter Visit Diagnoses Diagnosis Chronic depression- Primary Encounter for immunization Screening for lipid disorders Screening for diabetes mellitus Immunity status testing Antibody response examination Vitamin deficiency Unspecified vitamin deficiency Class 1 obesity due to excess calories without serious comorbidity with body mass index (BMI) of 32.0 to 32.9 in adult documented in this encounter Additional Health Concerns Assessment Noted Time PHQ-9 Depression Total Score: 14 025 9:41 AM EDT documented as of this encounter Care Teams Automatic Fancy Machine Operator Relationship Specialty Start Date End Date Kassy Land MD [address] [place] [address] PCP - General Family Medicine 08/13/18 documented as of this encounter
--- OUTSIDE RECORDS SUMMARY | 2025-05-13 10:42 | XMS_ITS | Encounter Summary ---
Author Organization [employer] Address [address] [place] [address] [place] [address] Care Team Providers Care Drill Punch Operator Name Role Phone Kassy Land MD Primary Care Provider [phone] Reason for Visit * Reason Onset Date Comments Med Refill 01/06/2025 Encounter Details Date Type Department Care Team (Late st Contact Info) Description 01/06/2025 Refill [facility] [address] [place], [place] [phone] Rosie Chong MD [address] [place] [address] Social History Tobacco Use Types Packs/Day Years [...] documented as of this encounter Care Teams Drill Punch Operator Relationship Specialty Start Date End Date Kassy Land MD [address] [place] [address] PCP - General Family Medicine 08/13/18 documented as of this encounter
--- OUTSIDE RECORDS SUMMARY | 2025-05-13 10:42 | XMS_ITS | Encounter Summary ---
Author Organization [employer] Address [address] [facility] 7 [place] [address] Care Team Providers Care Commercial Lines Assistant Name Role Phone Kassy Land MD Primary Care Provider [phone] Reason for Visit * Reason Onset Date Comments chart prep 05/12/2025 Encounter Details Date Type Department Care Team ([facility] st Contact Info) Description 05/12/[address] [facility] MEDICINE [address] [place], [place] [phone] Kassy Land MD [address] [place], [place] [phone] chart prep Social History Tobacco Use Types Packs/Day Years [...] Telephone Encounter - Manju Beverly MA - 05/12/2025 10:48 AM EDT ..Chart Prep Labs: not applicable Images: done Vaccines due: Covid Due, Hep B Due, and Flu Due Referrals: Not Applicable Screenings: PAP and LMP Mammogram 10/01/25 Overdue care gaps: PHQ9 documented in this encounter Plan of Treatment Not on file documented as of this encounter Visit Diagnoses Not on filedocumented in this encounter Additional Health Concerns Assessment Noted Time PHQ-9 Depression Total Score: 21 025 1:48 PM EST documented as of this encounter Care Teams Commercial Lines Assistant Relationship Specialty Start Date End Date Kassy Land MD [address] [place] [address] PCP - General Family Medicine 08/13/18 documented as of this encounter
--- OUTSIDE RECORDS SUMMARY | 2025-05-13 10:42 | XMS_ITS | Encounter Summary ---
Author Organization [employer] Address [address] [facility] 7 [place] [address] Care Team Providers Care Financial Project Manager Name Role Phone Kassy Land MD Primary Care Provider [phone] Reason for Visit * Reason Onset Date Comments Lab Orders 11/02/2022 Encounter Details Date Type Department Care Team ([facility] st Contact Info) Description 11/02/2022 Telephone [facility] MED[facility] [address] [place], [place] [phone] Kassy Land MD [address] [place] [address] Lab Orders Social History Tobacco Use Types [...] Miscellaneous Notes * Telephone Encounter - Jluis Whiteos - 11/02/2022 4:30 PM EDT [place] porter [place] [facility] [place] an order for an MRI for the brain with out contrast. NPI # [id number] documented in this encounter Plan of Treatment Not on file documented as of this encounter Visit Diagnoses Not on filedocumented in this encounter Care Teams Financial Project Manager Relationship Specialty Start Date End Date Kassy Land MD [address] [place] [phone] PCP - General Family Medicine 08/13/18 documented as of this encounter
--- OUTSIDE RECORDS SUMMARY | 2025-05-13 10:42 | XMS_ITS | Encounter Summary ---
Author Organization [employer] Address [address] [facility] 7 [place] [address] Care Team Providers Care Director Of Testing Name Role Phone Kassy Land MD Primary Care Provider [phone] Reason for Visit * Reason Comments Med Refill Encounter Details Date Type Department Care Team (Late st Contact Info) Description 10/23/2024 Refill [facility] MEDICINE [address] [place], [place] [phone] Kassy Land MD [address] [place], [place] [phone] Class 2 severe obesity due to excess [...] (BMI) of 35.0 to 35.9 in adult documented in this encounter Additional Health Concerns Assessment Noted Time PHQ-9 Depression Total Score: 21 025 1:48 PM EST documented as of this encounter Care Teams Director Of Testing Relationship Specialty Start Date End Date Kassy Land MD [address] [place] [address] PCP - General Family Medicine 08/13/18 documented as of this encounter
--- OUTSIDE RECORDS SUMMARY | 2025-05-13 10:42 | XMS_ITS | Encounter Summary ---
Author Organization [employer] Address [address] [place] [address] 7 [place] [address] Care Team Providers Care Linen Tech Name Role Phone Kassy Land MD Primary Care Provider [phone] Reason for Referral * Imaging (Routine) - Closed Specialty Diagnoses / Procedures Referred By Leo verdugo Referred To Contact Radiology Diagnoses Left upper quadrant pain Procedures US Abdomen Limited Kassy Land MD [address] [place] [address] Phone: tel: fax: [address] Phone: tel: fax: Referral ID Status Reason Start Date Expiration Date Visits Re quested Visits Authorized [id number] Closed 09/25/2024 09/25/2025 1 1 Encounter Details Date Type Department Care Team (Late st Contact Info) Description 09/25/2024 Orders Only [facility] [address] [place], [place] [phone] Kassy Land MD [address] [place] [address] Left upper quadrant pain (Primary Dx) Social [...] Procedure Name Priority Date/Time Associated Diagnosis Comments CULTURE, URINE, ROUTINE Routine 12/16/2024 7:58 PM EDT Left upper quadrant pain URINALYSIS, COMPLETE, WITH REFLEX TO CULTURE Routine 12/16/2024 7:40 PM EDT Left upper quadrant pain CBC WITH AUTO DIFFERENTIAL Routine 12/16/2024 7:40 PM EDT Left upper quadrant pain HCG, QL, URINE Routine 12/16/2024 7:40 PM EDT Left upper quadrant pain HCG, TOTAL, QN Routine 12/16/2024 7:40 PM EDT Left upper quadrant pain COMPREHENSIVE METABOLIC PANEL Routine 12/16/2024 7:40 PM EDT Left upper quadrant pain BACTERIAL VAGINOSIS PANEL Routine 11/26/2024 1:30 PM EDT Left upper quadrant pain CHLAMYDIA/N. GONORRHOEAE RNA, TMA, UROGENITAL Routine 11/26/2024 1:30 PM EDT Left upper quadrant pain US ABDOMEN LIMITED Routine 10/10/2024 5: 14 PM EST Left upper quadrant pain BI MAMMOGRAM SCREENING TOMOSYNTHESIS BILATERAL Routine 09/25/2024 8:25 AM EST documented in this encounter Results * Culture, Urine, Routine (12/16/2024 7:58 PM EDT) Urine Urine specimen obtained by clean catch procedure / Unknown 12/16/2024 7:58 PM EDT 12/16/2024 7:58 PM EDT Comment:[facility] Narrative [facility] - 12/18/2024 10:39 AM EDT Urine Culture Report Result Urine Culture < 10,000 cfu/ml Specimen Source: Urine clean catch Generic External Data Provider LAB MICROBIOLOGY - GENERAL ORDERABLES Final Result [facility] [address] [place] [phone] * hCG, Total, Quantitative (12/16/2024 7:40 PM EDT) HCG Quantitative <2 mIU/mL [facility] Comment:Weeks post LMP Appr oximate hCG(Last Menstrual Period) Range (mIU/ml)3 - 4 weeks 9 - 1304 - 5 weeks 75 - 2,6005 - 6 weeks 850 - 20,8006 - 7 weeks 4000 - 100,2007 - 12 weeks 11,500 - 289,69566 - 16 weeks 18,300 - 137,49222 - 29 weeks (2nd trimester) 1,400 - 53,43294 - 41 weeks (3rd trimester) 940 - 60,000The May B- hCG assay is used for the early detection ofpregnancy; it cannot be used to diagnose any conditionunrelated to . If a B-hCG level is not supportedby the clinical evidence, results should be confirmed by analternative method (qualitative urine hCG, for example). 12/16/2024 7:40 PM EDT 12/16/2024 7:43 PM EDT us Generic External Data Provider LAB BLOOD ORDERAB LES Final Result [facility] [address] [place] [phone] * (ABNORMAL) Comprehensive Metabolic Panel (12/16/2024 7:40 PM EDT) Sodium 140 135 - 145 mmol/L [facility] Potassium 3.4 3.3 - 5.1 mmol/L [facility] Chloride 107 96 - 108 mmol/L [facility] Carbon Dioxide 25 22 - 29 mmol/L [facility] Anion Gap 11(L) 12 - 20 [facility] Urea Nitrogen (BUN) 7(L) 9 - 16 mg/dL [facility] Creatinine, Serum 0.60 0.5 - 1.4 mg/dL [facility] Creatinine Clr Calc Pharmacy 108.0 [facility] Comment:Provided height and weight: 152.4 cm,70.307 kg.eGFR (calculated from the MDRD study equation) and eCrCl(calculated from the Cockcroft-Gault equation) are based ondifferent parameters and may not yield comparable results.If eCrCl result is absurd, please check patient'sheight/weight. Estimated Glomerular Filt Rate >60 [facility] Comment:Chronic Kidney Disea se: Estimated GFR < 60 mL/min/1.44i7Tmvyrt Kidney Disease: Estimated GFR < 15 mL/min/1.73m2 Glucose 87 60 - 115 mg/dL [facility] Calcium 9.2 8.4 - 10.2 mg/dL [facility] Bilirubin, Total 0.4 0.0 - 1.0 mg/dL [facility] Aspartate Amino Transferase 26 5 - 31 U/L [facility] Alanine Aminotransferase 16 0 - 31 U/L [facility] Total Protein 7.7 6.5 - 8.0 g/dL [facility] Albumin Level 4.2 3.5 - 5.0 g/dL [facility] Alkaline Phosphatase 63 39 - 117 U/L [facility] 12/16/2024 7:40 PM EDT 12/16/2024 7:43 PM EDT us Generic External Data Provider LAB BLOOD ORDERAB LES Final Result Performing Organization Address [facility] Co de Phone Number [facility] [address] [place] [phone] * HCG, Qualitative, Urine (12/16/2024 7:40 PM EDT) Urine NEGATIVE NEGATIVE [facility] Comment:This test was develo ped to detect early . Falsenegative results may occur after the 5th - 7th week ofpregnancy when using this test method. If clinicallyindicated, consider a serum hCG. 12/16/2024 7:40 PM EDT 12/16/2024 7:43 PM EDT us Generic External Data Provider LAB URINE ORDERAB LES Final Result Performing Organization Address [facility] Co de Phone Number [facility] [address] [place] [address] [phone] * (ABNORMAL) Urinalysis, Complete, with Reflex to Culture (12/16/2024 7:40 PM EDT) Color Urine Dark Yellow [facility] Appearance Urine Cloudy [facility] PH 8.0 5.0 - 9.0 [facility] Glucose Urine UA Negative Negative mg/dL [facility] Urine Blood Negative Negative [facility] Specific [place] - Urine 1.025 1.005 - 1.025 [facility] Urine Protein 30 (1+)(A) Neg-Trace mg/dL [facility] Urine Ketones Trace Negative mg/dL [facility] Nitrite Urine Negative Negative [facility] Leukocyte Esterase Urine Moderate (2+)(A) Negative [facility] RBC Urine 0-2 0 - 2 /HPF [facility] Urine WBC >50(A) 0 - 5 /HPF [facility] Urine Squamous Epithelial Cell 11-20 0 - 2 /HPF [facility] Urine Bacteria 4+ None Seen [facility] Hyaline Casts, Urine 3-5 0 - 2 /LPF [facility] 12/16/2024 7:40 PM EDT 12/16/2024 7:43 PM EDT Narrative [facility] - 12/16/2024 7:58 PM EDT [id number], Clean Catch us Generic External Data Provider LAB URINE ORDERAB LES Final Result [facility] [address] [place] [phone] * (ABNORMAL) CBC auto differential (12/16/2024 7:40 PM EDT) White Blood Count 7.5 4.8 - 10.8 X10*3/uL [facility] Red Blood Count 4.92 4.20 - 5.50 X10*6/uL [facility] Hemoglobin 13.2 12.0 - 16.0 g/dl [facility] Hematocrit 39.6 37.0 - 47.0 % [facility] Mean Corpuscular Volume 80.5 80.0 - 98.0 fL [facility] Mean Corpuscular Hemoglobin 26.8(L) 27.0 - 33.0 pg [facility] Mean Corpuscular HGB Conc 33.3 31.0 - 35.0 g/dl [facility] Red Cell Distribution Width 13.0 11.0 - 16.0 % [facility] Platelet Count 241 160 - 400 X10*3/uL [facility] Mean Platelet Volume 10.4 9.4 - 12.3 fL [facility] Neutrophils Percent Auto 49.3 45 - 73 % [facility] Imm Gran Pct Auto 0.1 0.0 - 0.4 % [facility] Lymphocytes Percent Auto 39.5 20 - 40 % [facility] Monocytes Percent Auto 9.3 2 - 11 % [facility] Eosinophils Percent Auto 0.7 0 - 4 % [facility] Basophils Percent Auto 1.1 0 - 2 % [facility] NRBC Pct Auto 0.0 0.0 - 0.2 /100WBC [facility] Neutrophils Absolute Auto 3.7 2.0 - 8.3 x10*3/uL [facility] Imm Gran Abs Auto 0.01 0.00 - 0.03 X10*3/uL [facility] Lymphocytes Absolute Auto 2.9 1.2 - 4.9 X10*3/uL [facility] Monocytes Absolute Auto 0.7 0.1 - 1.2 X10*3/uL [facility] Eosinophils Absolute Auto 0.1 0.0 - 0.4 X10*3/uL [facility] Basophils Absolute Auto 0.1 0.0 - 0.2 X10*3/uL [facility] NRBC Abs Auto 0.000 0.0 - 0.012 X10*3/uL [facility] 12/16/2024 7:40 PM EDT 12/16/2024 7:43 PM EDT us Generic External Data Provider LAB BLOOD ORDERAB LES Final Result [facility] [address] [place] [phone] * Chlamydia/N. Gonorrhoeae RNA, TMA, Urogenitial (11/26/2024 1:30 PM EDT) CT PCR NOT DETECTED Not Detect. [facility] Comment:A not detected test result does not exclude the possibilityof infection because test results can be affected byimproper specimen collection, concurrent antibiotic therapy,or the number of organisms in the specimen which may bebelow the sensitivity of the test. As with many diagnostictests, results from the Xpert CT/NG assay should beinterpreted in conjunction with other laboratory andclinical data available to the clinician.Xpert CT/NG performance has not been evaluated in patientsless than 14 years of age. The assay should not be used forthe evaluationof suspected sexual abuse or for other medico-legalindications. Additional testing is recommended in anycircumstance when false positive or false negative resultscould lead to adverse medical, social or psychologicalconsequences. NG PCR NOT DETECTED Not Detect. [facility] Comment:A not detected test result does not exclude the possibilityof infection because test results can be affected byimproper specimen collection, concurrent antibiotic therapy,or the number of organisms in the specimen which may bebelow the sensitivity of the test. As with many diagnostictests, results from the Xpert CT/NG assay should beinterpreted in conjunction with other laboratory andclinical data available to the clinician.Xpert CT/NG performance has not been evaluated in patientsless than 14 years of age. The assay should not be used forthe evaluationof suspected sexual abuse or for other medico-legalindications. Additional testing is recommended in anycircumstance when false positive or false negative resultscould lead to adverse medical, social or psychologicalconsequences. 11/26/2024 1:30 PM EDT 11/26/2024 4:38 PM EDT Narrative [facility] - 11/27/2024 9:18 AM EDT Vaginal us Generic External Data Provider LAB MICROBIOLOGY - GENERAL ORDERABLES Final Result [facility] [address] [place] [phone] * Bacterial Vaginosis (11/26/2024 1:30 PM EDT) TRICHOMONAS VAGINALIS DETECTION BY PCR NOT DETECTED Not Detect [facility] BACTERIAL VAGINOSIS DETECTION BY PCR NEGATIVE Negative [facility] Comment:The BV organism targ ets of the Xpert Xpress MVP test can becommensal in women; Xpert Xpress MVP positive results forbacterial vaginosis should be considered in conjunction withother clinical and patient information to determine thedisease status. Organisms that are not detected by the XpertXpress MVP test have also been reported to be associatedwith BV and aerobic vaginitis.The Xpert Xpress MVP test performance has not been evaluatedin patients under the age of 14. GLORIA GROUP DETECTION BY PCR NOT DETECTED Not Detect [facility] Gloria glab krusei PCR NOT DETECTED Not Detect [facility] 11/26/2024 1:30 PM EDT 11/26/2024 4:38 PM EDT us Generic External Data Provider LAB MICROBIOLOGY - GENERAL ORDERABLES Final Result [facility] [address] [place] [phone] * US Abdomen Limited (10/10/2024 5:14 PM EST) Anatomical Region Laterality Modality Abdomen Ultrasound 10/10/2024 5:14 PM EST Narrative 10/10/2024 5:16 PM EST [facility] [address] [place] [address] [place] [address] Ultrasound Report Signed Patient: Della Felton MR#: [id number] : 1985 Acct:[id number] Age/Sex: 39 / F ADM Date: 10/10/24 Loc: HO.HMGCX Attending Dr: Kassy Land MD Ordering Physician: Kassy Land MD Date of Service: 10/10/24 Procedure(s): US abdomen limited Accession Number(s): [id number] cc: Kassy Land MD CLINICAL HISTORY: LUQ pain. Pt feels mass. Tender in LUQ, but no discrete mass. US abdomen limited Comparison: None Findings: [...] in OV> 10/10/241714 DD/ 13 TD/TT: 10/10/241713 Director Talent: Procedure Note Donotuseinterpreter, Image - 10/10/2024 [facility] [address] [place] [address] [place] [address] Ultrasound Report Signed Patient: Dennis Felton#: [id number] : 1985Acct:[id number] Age/Sex: 39 / FADM Date: 10/10/24 [facility]: Kassy Land MD Ordering Physician: Kassy Land MD Date of Service: 10/10/24 Procedure(s): US abdomen limited Accession Number(s): [id number] cc: Kassy Land MD CLINICAL HISTORY: LUQ [...] in OV> 10/10/241714 DD/ 13 TD/TT: 10/10/241713 Director Talent: us Kassy Land MD IMG US PROCEDURES Final Result * BI Mammogram Screening Tomosynthesis Bilateral (09/25/2024 8:25 AM EST) Anatomical Region Laterality Modality Breast Bilateral Mammography 09/25/2024 8:25 AM EST Narrative 10/03/2024 4:53 PM EST [facility] [address] [place], [place] [address] Mammography Report Signed Patient: Della Felton MR#: [id number] : 1985 Acct:[id number] Age/Sex: 39 / F ADM Date: 09/25/24 Loc: HO.MAMMO Attending Dr: Kassy Land MD Ordering Physician: Kassy Land MD Results: 1Negative Date of Service: 09/25/24 Follow Up: 1 Year From Orig inal Mammogram Procedure(s): MM tomosynthesis screening BI Accession Number(s): [id number] cc: Kassy Land MD EXAMINATION: MM SCREENING [...] 10/03/24 1649 DD/ 0825 TD/TT: 09/25/24 0843 Director Talent: Procedure Note Donotuseinterpreter, Image - 10/03/2024 [facility] [address] [place] [address] Mammography Report Signed Patient: Delilah FeltonR#: [id number] : 1985Acct:[id number] Age/Sex: 39 / FADM Date: 09/25/24 Loc: HO.MAMMO Attending Dr: Kassy Land MD Ordering Physician: Kassy Land MDResults: 1Negative Date of Service: 09/25/24Follow Up: 1 Year From Orig ina Mammogram Procedure(s): MM tomosynthesis screening BI Accession Number(s): [id number] cc: Kassy Land MD EXAMINATION: MM SCREENING [...] by: Sherice Mueller DO 10/03/2024 04:[address] [facility] Dictated By: Sherice Mueller DO Signed By: <Electronically signed by Sherice Mueller DO in OV> 10/03/24 1649 DD/ 0825 TD/TT: 09/25/24 0843 Director Talent: us Kassy Land MD IMG BI PROCEDURES Final Result documented in this encounter Visit Diagnoses Diagnosis Left upper quadrant pain- Primary Abdominal pain, left upper quadrant documented in this encounter Additional Health Concerns Assessment Noted Time PHQ-9 Depression Total Score: 21 025 1:48 PM EST documented as of this encounter Care Teams Linen Tech Relationship Specialty Start Date End Date Kassy Land MD [address] [place] [address] PCP - General Family Medicine 08/13/18 documented as of this encounter
--- OUTSIDE RECORDS SUMMARY | 2025-05-13 10:42 | XMS_ITS | Encounter Summary ---
Author Organization [employer] Address [address] [facility] 7 [place] [address] Care Team Providers Care Hand I Cutter Name Role Phone Kassy Land MD Primary Care Provider [phone] Reason for Visit * Reason Onset Date Comments Med Refill 12/30/2024 Encounter Details Date Type Department Care Team (Late st Contact Info) Description 12/30/2024 Telephone [facility] [address] [place], [place] [phone] Kassy Land MD [address] [place], [place] [phone] Med Refill Social History Tobacco Use Types Packs/Day Years [...] Telephone Encounter - Julienne Enamorado LPN - 12/30/2024 2:44 PM EDT Medication was sent to [facility] #[id number] on 12/17/24 with 1 refill. * Telephone Encounter - Barb Vann - 12/30/2024 2:41 PM EDT TC from pt requesting medication refill. Medications needing refill : Semaglutide-Weight Management (Wegovy) 2.4 MG/0.75ML solution auto-injector To be sent to: [id number] - [place] [facility] [address] [facility] documented in this encounter Plan of Treatment Not on file documented as of this encounter Visit Diagnoses Not on filedocumented in this encounter Additional Health Concerns Assessment Noted Time PHQ-9 Depression Total Score: 21 025 1:48 PM EST documented as of this encounter Care Teams Hand I Cutter Relationship Specialty Start Date End Date Kassy Land MD [address] [place] [address] PCP - General Family Medicine 08/13/18 documented as of this encounter
--- OUTSIDE RECORDS SUMMARY | 2025-05-13 10:42 | XMS_ITS | Encounter Summary ---
Author Organization [employer] Address [address] [place] [address] 7 [place] [address] Care Team Providers Care Portfolio Mgr Name Role Phone Kassy Land MD Primary Care Provider [phone] Reason for Visit * Reason Onset Date Comments Med Refill 03/05/2025 Encounter Details Date Type Department Care Team (Late st Contact Info) Description 03/05/2025 Refill [facility] [address] [place], [place] [phone] Kassy Land MD [address] [place], [place] [phone] Class 1 obesity due to excess calories without serious comorbidity with body mass index (BMI) of 30.0 to 30.9 in adult Social History Tobacco Use Types [...] of this encounter Visit Diagnoses Diagnosis Class 1 obesity due to excess calories without serious comorbidity with body mass index (BMI) of 30.0 to 30.9 in adult documented in this encounter Additional Health Concerns Assessment Noted Time PHQ-9 Depression Total Score: 21 025 1:48 PM EST documented as of this encounter Care Teams Portfolio Mgr Relationship Specialty Start Date End Date Kassy Land MD [address] [place] [address] PCP - General Family Medicine 08/13/18 documented as of this encounter
--- OUTSIDE RECORDS SUMMARY | 2025-05-13 10:42 | XMS_ITS | Encounter Summary ---
Author Organization [employer] Address [address] [place] [address] Care Team Providers Care Inspector And Clipper Name Role Phone Kassy Land MD Primary Care Provider [phone] Encounter Details Date Type Department Care Team (Latest Contact Info) Description 05/13/2025 Travel Social History Tobacco Use Types Packs/Day [...] AM EDT documented as of this encounter Functional Status * Over the past 2 weeks, how often have you been bothered by any of the following problems? Question Answer Date of Assessment Author Patient Health Questionnaire -2 Score 2 05/13/2025 9:41 AM SARAIT Crys Beverly [place] * Little interest or pleasure in [...] documented as of this encounter Care Teams Inspector And Clipper Relationship Specialty Start Date End Date Kassy Land MD [address] [place] [phone] PCP - General Family Medicine 08/13/18 documented as of this encounter
--- OUTSIDE RECORDS SUMMARY | 2025-05-13 10:43 | XMS_ITS | Clinical Summary ---
Author Organization [employer] Address [address] [facility] 7 [place] [address] Care Team Providers Care Gallery Manager Name Role Phone Kassy Land MD Primary Care Provider [phone] Allergies Active Allergy Reactions Criticality Noted Date Comments Amitriptyline 06/24/2013 Gabapentin 02/05/2012 Morphine Shortness of breath High 02/09/2025 Sumatriptan High 06/24/2013 Other reaction(s): ITCHINESS, DIFFICULTY BREATHING Medications Acetaminophen 500 MG capsule Take 2 capsules (1,000 mg) by mouth every 8 (eight) hours if needed for mild pain, moderate pain, headaches or fever. 60 capsule 1 09/18/19 25 Active Nurtec 75 MG tablet dispersibleIndica tions:Migraine without status migrainosus, not intractable, unspecified migraine type DISSOLVE 1 TABLET ON THE TONGUE EVERY OTHER DAY NEEDED FOR MIGRAINE HEADACHE DISSOLVE ON TONGUE 8 tablet 3 09/18/19 25 Active diclofenac sodium 3 % gel Apply to affected painful areas once or twice daily 100 g 1 09/19/19 25 Active meloxicam (Mobic) 15 MG tabletIndications :Right-sided low back pain with bilateral sciatica, unspecified chronicity Take 1 tablet (15 mg) by mouth Once per day. 30 tablet 11 12/25/19 25 2025 Active Semaglutide-Weigh t Management (Wegovy) 2.4 MG/0.75ML solution auto-injectorIndi cations:Class 1 obesity due to excess calories without serious comorbidity with body mass index (BMI) of 30.0 to 30.9 in adult INJECT 2.4MG UNDER THE SKIN EVERY WEEK 3 mL 1 01/14/20 25 Active Blood Pressure Monitor misc Check BP daily 1 each 01/14/20 25 Active ondansetron ODT (Zofran-ODT) 4 MG disintegrating tablet Take 1 tablet (4 mg) by mouth every 8 (eight) hours if needed for nausea or vomiting. 30 tablet 2 01/14/20 25 Active propranolol (Inderal) 20 MG tablet Take 1 tablet by mouth 30 - 60 minutes prior to anxiety-prov oking situation 30 tablet 3 05/13/20 25 Active traZODone (Desyrel) 50 MG tabletIndications :Chronic depression Take 1 tablet (50 mg) by mouth at bedtime. 90 tablet 3 05/13/20 25 2025 Active Tirzepatide-Weigh t Management (Zepbound) 2.5 MG/0.5ML solution auto-injectorIndi cations:Class 1 obesity due to excess calories without serious comorbidity with body mass index (BMI) of 32.0 to 32.9 in adult Inject 0.5 mL (2.5 mg) under the skin 1 (one) time per week. 2 mL 11 05/13/20 25 Active propranolol (Inderal) 20 MG tablet Take 1 tablet by mouth 30 - 60 minutes prior to anxiety-prov oking situation 30 tablet 11 01/14/20 25 2024 Discontinued(R eorder (will not trigger notification to Pharmacy)) amoxicillin (Amoxil) 500 MG capsuleIndication s:Insect bite of right foot, initial encounter Take 1 capsule (500 mg) by mouth 2 times daily for 5 days. 10 capsule 04/16/20 25 2024 Active Problems Problem Noted Date Diagnosed Date Allergic rhinitis 05/13/2025 Urinary incontinence 09/23/2024 Assessment & Plan (09/23/2024 10:57 AM EST): - Referred to Obstetrics / Gynecology Chronic pain syndrome 09/19/2024 Assessment & Plan (01/13/2025 9:01 AM EDT): - encourage to attend chronic pain group Assessment & Plan (09/19/2024 6:27 PM EST): - encourage to attend chronic pain group Left upper quadrant pain 09/19/2024 Assessment & Plan (09/19/2024 6:44 PM EST): - tender in LUQ and lower rib - patient reported sensation of mass; US was normal Elevated BP without diagnosis of hypertension Assessment & Plan (01/25/2025 10:43 AM EDT): -Goal BP < 130/80 per ACC/AHA guideline (Treatment threshold >=140/90) -Transient vs. Chronic. She does not meet a criteria for Dx at this time. -Continue working on lifestyle modifications -Recommended self-monitoring BP. -Patient is prescribed propranolol for anxiety and GLP1RA for weight loss purpose. These treatment may improve BP. Assessment & Plan (09/19/2024 6:12 PM EST): [...] 8 Chronic depression 03/29/2016 Assessment & Plan (01/25/2025 10:48 AM EDT): - with anxiety symptoms - PHQ9 score 21 and GAD7 score 21 on 09/18/24. Patient denies SI or plan. - Continue counseling with current [facility] provider: Naomi Weiner [address] - Previously tried venlafaxine and hydroxyzine, which she self-discontinued - She is prescribed propranolol for anxiety (patient requested in May 2024), taking as prn flight phobia - She contracted her safety today. She has a crisis number and has her long-term therapist. Assessment & Plan (09/24/2024 5:38 AM EST): - with anxiety symptoms - PHQ9 score 21 and GAD7 score 21 on 09/18/24. Patient denies SI or plan. - Continue counseling with current [facility] provider: Naomi Weiner [address] - Previously tried venlafaxine and hydroxyzine, which she self-discontinued - She is prescribed propranolol for anxiety (patient requested in May 2024), - She contracted her safety today. She has a crisis number and has her long-term therapist. Assessment & Plan (06/20/2024 11:17 AM EST): - with anxiety symptoms - Continue counseling with current [facility] provider: Naomi Weiner [address] - Previously tried venlafaxine and hydroxyzine, which she self-discontinued - She is requesting propranolol, will prescribe as patient requested Assessment & Plan (09/09/2023 6:40 PM EST): - Continue counseling with current [facility] provider: Naomi Weiner [address] - Restart venlafaxine - Restart hydroxyzine prn Assessment & Plan (09/20/2022 1:59 PM EST): - Continue counseling with current [facility] provider: Naomi Melissareema [address] - Restart venlafaxine - Restart hydroxyzine prn Benign paroxysmal positional vertigo 08/04/2015 Hypertrophy of tonsils 10/30/2013 Chronic headache disorder 08/14/2012 Assessment & Plan (01/13/2025 9:00 AM EDT): - multifactorial - tension, vestibular, sinus, and migraine - following with [facility] neurology, last seen in Apr 2024 - [...] effective for migraine prophylaxis Assessment & Plan (09/19/2024 6:12 PM EST): - multifactorial - tension, vestibular, sinus, and migraine - following with [facility] neurology, last seen in Apr 2024 - [...] vestibular, sinus, and migraine - following with [facility] neurology, last seen in Apr 2024 - [...] vestibular, sinus, and migraine - following with [facility] neurology, last seen in October 2022 - [...] neurologist before discontinuing. - Previously prescribed eletriptan 20mg prn , max 2 tabs / 24hrs. no more than 3 doses in a week. No longer taking. - Previously prescribed Reglan 5mg prn for nausea related to Migraines; patient is no longer taking - Encouraged to follow up with neurologist Migraine 08/14/2012 Assessment & Plan (01/25/2025 10:47 AM EDT): Currently following with [facility] neurology service, last seen on 10/26/22 -Previously tried medications --Topamax 25 mg qhs - discontinued due to ineffectiveness --propranolol 10 mg bid - self-discontinued due to ineffectiveness for headache, yet now taking for anxiety --nortriptyline - discontinued due to ineffectiveness --sumatriptan [...] schedule appointment with neurologist Assessment & Plan (09/19/2024 6:16 PM EST): Currently following with [facility] neurology service, last seen on 10/26/22 [...] (05/13/2024 3:55 PM EDT): Currently following with [facility] neurology service, last seen on 10/26/22 [...] (09/14/2023 3:44 PM EST): Currently following with [facility] neurology service, last seen on 10/26/22 [...] (11/21/2022 3:52 PM EDT): Currently following with [facility] neurology service, last seen on 10/26/22 [...] (09/20/2022 1:58 PM EST): Currently following with [facility] neurology service -Previously tried medications --Topamax [...] to Migraines Obesity 08/14/2012 Assessment & Plan (01/15/2025 10:42 PM EDT): - Started Wegovy in May 2024 - Continue GLP1RA, still titrating up - Continue lifestyle modification effort Assessment & Plan (09/19/2024 6:16 PM EST): [...] Encounters Date Type Department Care Team Description 05/13/2025 9:00 AM EDT Office Visit [facility] [place] [address] Kassy Land MD Chronic depression (Primary Dx); Encounter for immunization; Screening for lipid disorders; Screening for diabetes mellitus; Immunity status testing; Vitamin deficiency; Class 1 obesity due to excess calories without serious comorbidity with body mass index (BMI) of 32.0 to 32.9 in adult 05/13/2025 Travel 05/12/2025 Telephone [facility] [place] [address] Kassy Land MD chart prep 04/16/2025 10:00 AM EDT Office Visit [facility] [place] [address] Kasey Armijo FNP Insect bite of right foot, initial encounter (Primary Dx) 04/16/[address] [place] [place] [address] Kassy Land MD Medication Question 04/16/2025 Travel 04/15/[address] [place] [address] Kassy Land MD Nurse Triage 04/08/[address] [address] Kassy Land MD october recall 03/05/[address] [place] [address] Kassy Land MD Class 1 obesity due to excess calories without serious comorbidity with body mass index (BMI) of 30.0 to 30.9 in adult from Last 3 Months Immunizations Immunization Administration Dates Next Due Hep A, Adult 12/04/2011,05/29/2011 Influenza injectable quadriv alent IIV4 with preservative 09/20/2017,04/26/2015 Influenza injectable quadriv alent preservative free 09/12/2022,05/09/2021,05/26/2020,2019,08/19/2018,07/20/2016,10/29/2014 Influenza, IIV3, injectable 05/29/2011 Influenza, Split (incl. lore fied surface antigen) 05/15/2013,08/14/2012 Influenza, seasonal, injecta ble, preservative free 05/13/2025,05/13/2024 Moderna Covid-19 Vaccine 12+ 12/16/2020,11/19/19 21 Pfizer Covid-19 Vaccine 12+ 12/16/2020, 1 TD (adult), 2 Lf tetanus tox oid, [...] Mass Index 32.89 05/13/2025 9:05 AM EDT Plan of Treatment Health Maintenance Due Date Last Done Comments HIV Screening 1985 HPV Vaccines (1 - 3-dose series) 1998 Hepatitis C Screening 2001 Hepatitis B Vaccines (1 of 3 - 19+ 3-dose series) 2002 Pap Smear 2004 Cervical Cancer Screening 2013 HPV/Cotest 2013 COVID-19 Vaccine ( season) 2025 12/16/2020, 12/16/2020, 11/25/2020, Additional history exists Alcohol/Substance Use Screening 09/18/2025 09/18/2024 SDOH Screening 09/18/2025 09/18/2024 Family Planning (PISQ) 09/24/2025 09/24/2024 Depression Monitoring 11/11/2025 05/13/2025, 025 Disability Screening 01/13/2026 01/13/2025 Tobacco Screening 05/13/2026 05/13/2025 Mammogram 09/25/2026 09/25/2024, 09/20/2023 Lipid Panel 05/14/2029 05/14/2024 DTaP/Tdap/Td Vaccines (3 - Td or Tdap) 01/11/2032 01/10/2022, 12/04/2011, 09/11/2006 Zoster Vaccines (1 of 2) 2033 RSV Patients and Patients Aged 60 years or older (1 - 1-dose 75+ series) 2058 Hepatitis A Vaccines Aged Out 12/04/2011, 05/29/20 11 No longer eligible based on patient's age to complete this topic Influenza Vaccine Completed 05/13/2025, , 09/12/2022, Additional history exists HIB Vaccines Aged Out No longer eligi ble based on patient's age to complete this topic IPV Vaccines Aged Out No longer eligi ble based on patient's age to complete this topic Meningococcal B Vaccine Aged Out No l onger eligible based on patient's age to complete this topic Meningococcal Vaccine Aged Out No morgan bharati eligible based on patient's age to complete this topic Pneumococcal Vaccine: Pediatrics (0 to 5 Years) and At-Risk Patients (6 to 49) Years Aged Out No longer eligible based on [...] AM EST Narrative 10/03/2024 4:53 PM EST [address] [place] [address] Mammography Report Signed Patient: Della Felton MR#: [id number] : 1985 Acct:[id number] Age/Sex: 39 / F ADM Date: 09/25/24 Loc: HO.MAMMO Attending Dr: Kassy Land MD Ordering Physician: Kassy Land MD Results: 1Negative Date of Service: 09/25/24 Follow Up: 1 Year From Orig inal Mammogram Procedure(s): MM tomosynthesis screening BI Accession Number(s): [id number] cc: Kassy Land MD EXAMINATION: MM SCREENING [...] 10/03/24 1649 DD/ 0825 TD/TT: 09/25/24 0843 Industrial Technology Education Teacher: Procedure Note Donotuseinterpreter, Image - 10/03/[address] [place] [address] Mammography Report Signed Patient: Delilah FeltonR#: [id number] : 1985Acct:[id number] Age/Sex: 39 / FADM Date: 09/25/24 Loc: HO.MAMMO Attending Dr: Kassy Land MD Ordering Physician: Kassy Land MDResults: 1Negative Date of Service: 09/25/24Follow Up: 1 Year From [facility] Mammogram Procedure(s): MM tomosynthesis screening BI Accession Number(s): [id number] cc: Kassy Land MD EXAMINATION: MM SCREENING [...] 10/03/24 1649 DD/ 0825 TD/TT: 09/25/24 0843 Industrial Technology Education Teacher: us Kassy Land MD IMG BI PROCEDURES Final Result * (ABNORMAL) Lipid Panel with Reflex to Direct LDL (05/14/2024 11:11 AM EDT) Triglycerides 162(H) <150 mg/dL [facility] Comment:Desirable Triglyceri de: less than 150 mg/dLBorderline High Triglyceride 150-199 mg/dLHigh Triglyceride: 200-499 mg/dLVery High Triglyceride: greater than or equal to 5OO mg/dL Cholesterol 175 <200 mg/dL [facility] Comment:Desirable Cholestero l: less than 200 mg/dLBorderline High Cholesterol: 200-239 mg/dLHigh Cholesterol: greater than 239 mg/dL LDL Cholesterol Calculated 101(H) <100 mg/dL [facility] Comment:Desirable LDL: less than 100 mg/dLNear Optimal/Above Optimal LDL: 110- 129 mg/dLBorderline High LDL: 130-159 mg/dLHigh LDL: 160-189 mg/dLVery High LDL: greater than or equal to 190 mg/dL HDL Cholesterol 42 >40 mg/dL [facility] Comment:Desirable HDL: great er than 40 mg/dL Note: This HDL assay may give artificially low results in patients with liver disease. Blood 05/14/2024 11:1 1 AM EDT 05/14/2024 1:41 PM EDT us Kassy Land MD LAB BLOOD ORDERABLES Final Resul t [facility] [address] [place] [phone] from Last 3 Months or Most Recently Relevant to Health Maintenance [place] [place] [address] Care Teams Gallery Manager Relationship Specialty Start Date End Date Kassy Land MD [address] [place] [phone] PCP - General Family Medicine 08/13/18
[2025-05-13 11:57] LABS: Cholesterol 185 mg/dL (<200); HDL Cholesterol 49 mg/dL (>40); Triglycerides 136 mg/dL (<150)
[2025-05-13 12:03] LABS: HBS Num1 272.16 mIU/mL (0-7.99); ~Hepatitis B Surface Antibody REACTIVE (Nonreactive)
[2025-05-13 12:34] LABS: Reflex LDLD? No
== END 2025-05-13 09:48 | disposition home or self-care (01) ==
LOC: HO.HHCL 09:47
PROVIDERS: PCP Family Medicine; Visit Provider Family Medicine
DX: Z01.84 Encounter for antibody response examination (principal); Z13.220 Encounter for screening for lipoid disorders; Z13.1 Encounter for screening for diabetes mellitus; E56.9 Vitamin deficiency, unspecified
CPT/HCPCS: 36415; 80061; 82306; 83036; 86706

== ENCOUNTER 2025-06-24 18:11 | Outpatient (REF) | payer OTHER, SELFPAY ==
--- OUTSIDE RECORDS SUMMARY | 2025-06-24 15:15 | XMS_ITS | Encounter Summary ---
Author Organization [employer] Address [address] [place] [address] 7 [place] [address] Care Team Providers Care Grocery Worker Name Role Phone Kassy Land MD Primary Care Provider [phone] Reason for Visit * Reason Comments SICK VISIT Encounter Details Date Type Department Care Team (Late st Contact Info) Description 06/24/2025 3:15 PM EST Office Visit [facility] [address] [place], [place] [phone] Xavier Dill FNP [address] [place] [address] Sore throat Social History Tobacco Use Types Packs/Day Years [...] not to disclose 2021 10:16 AM EDT Travel History Travel Start Travel End [place] 05/24/2025 06/24/2025 documented as of this encounter Last Filed Vital Signs Vital Sign Reading Time Taken Comments Blood Pressure 120/86 06/24/2025 3:22 PM EST Pulse 104 06/24/2025 3:22 PM EST Temperature 37 C (98.6 F) 06/24/2025 3:22 PM EST Respiratory Rate 16 06/24/2025 3:22 PM EST Oxygen Saturation 98% 06/24/2025 3:22 PM EST Inhaled Oxygen Concentration - - Weight 75.4 kg (166 lb 3.2 oz) 06/24/2025 3:22 P M EST Height 152.4 cm (5') 06/24/2025 3:22 PM EST Body Mass Index 32.46 06/24/2025 3:22 PM EST documented in this encounter Progress Notes * MAR[place] - 06/24/2025 3:15 PM EST Images from the original note were not included. Della Felton is a 40 y.o. female who presents for an acute visit for sore throat x 2 days. Della Felton, age 40 years Sore Throat - Onset 2 days prior to visit - Throat pain, worse on the right side, mild tenderness to touch - Reports tonsils feel swollen - No ear pain - No fever, chills, or muscle pain - No headache or lightheadedness - No chest pain, shortness of breath, or rash - No sinus pain - No vaginal bleeding or discharge Nasal Congestion - Noticed nasal congestion and runny nose prior to visit - Sneezing started on day of visit Gastrointestinal Symptoms - None - Denies vomiting, constipation, or blood in stool Sleep - Reports taking medication prescribed by another doctor to aid sleep Problem List[1] Allergies[2] Review of Systems Constitutional: Negative for chills and fever. HENT: Positive for congestion, rhinorrhea, sneezing and sore throat. Negative for ear pain, sinus pressure and sinus pain. Eyes: Negative. Negative for pain, discharge, redness and itching. Respiratory: Positive for cough and shortness of breath. Negative for wheezing and stridor. Cardiovascular: Negative for chest pain. Gastrointestinal: Negative for abdominal pain, blood in stool, constipation, diarrhea and vomiting. Endocrine: Negative. Genitourinary: Negative. Musculoskeletal: Negative. Negative for arthralgias, back pain, myalgias and neck pain. Skin: Negative. Negative for rash. Neurological: Negative for weakness, light-headedness and headaches. Psychiatric/Behavioral: Negative. 10/31/2024 11:36 AM 12/24/2024 3:52 PM 01/13/2025 9:15 AM 01/13/2025 9:52 AM 04/16/2025 10:04 AM 05/13/2025 9:05 AM 06/24/2025 3:22 PM Vitals Systolic 130 128 120 122 126 118 120 Diastolic 81 90 90 90 78 80 86 Heart Rate 99 102 90 88 93 104 Temp 95.5 ??F (35.3 ??C) 97.3 ??F (36.3 ??C) 98 ??F (36.7 ??C) 96.1 ??F (35.6 ??C) 98.6 ??F (37 ??C) Resp 12 18 20 20 14 16 Height (in) 5' (1.524 m) 5' (1.524 m) 5' (1.524 m) 5' (1.524 m) 5' (1.524 m) Weight (lb) 164.8 155.4 157 166.25 168.4 166.2 BMI 33.33 kg/m2 30.35 kg/m2 30.66 kg/m2 32.47 kg/m2 32.89 kg/m2 32.46 kg/m2 BSA (m2) 1.76 m2 1.73 m2 1.74 m2 1.79 m2 1.8 m2 1.79 m2 Visit Report Report Report Report Report Report Report Report Physical Exam Constitutional: Appearance: Normal appearance. HENT: Head: Normocephalic. Right Ear: Tympanic membrane, ear canal and external ear normal. Left Ear: Tympanic membrane, ear canal and external ear normal. Nose: Nose normal. Mouth/Throat: Mouth: Mucous membranes are moist. Pharynx: Posterior oropharyngeal erythema present. Comments: Tonsils swollen +3 bilaterally Eyes: Extraocular Movements: Extraocular movements intact. Pupils: Pupils are equal, round, and reactive to light. Neck: Comments: Right side cervical lymph node tenderness on palpation; Cardiovascular: Rate and Rhythm: Normal rate and regular rhythm. Pulses: Normal pulses. Heart sounds: Normal heart sounds. No murmur heard. No friction rub. No gallop. Pulmonary: Effort: Pulmonary effort is normal. No respiratory distress. Breath sounds: Normal breath sounds. No stridor. No wheezing, rhonchi or rales. Chest: Chest wall: No tenderness. Abdominal: General: Bowel sounds are normal. Palpations: Abdomen is soft. Tenderness: There is no abdominal tenderness. There is no guarding. Musculoskeletal: Cervical back: Normal range of motion and neck supple. Tenderness present. No rigidity. Skin: General: Skin is warm. Capillary Refill: Capillary refill takes less than 2 seconds. Coloration: Skin is not jaundiced. Findings: No rash. Neurological: General: No focal deficit present. Mental Status: She is alert and oriented to person, place, and time. Psychiatric: Mood and Affect: Mood normal. Behavior: Behavior normal. Sore throat: - Sore throat with possible streptococcal pharyngitis; differential includes viral pharyngitis and influenza. - Ordered rapid strep test, rapid COVID test, rapid influenza test, and throat culture. Recommendedsalt water gargles, honey for symptomatic relief, maintain hydration, and adequate sleep. Advised to monitor for fever and contact office if symptoms worsen. Will prescribe antibiotics if throat culture confirms streptococcal infection. Will consider antiviral therapy if influenza test is positive. Assessment & Plan Sore throat Orders: POCT Rapid Strep A MEJÍA ID NOW POCT Rapid Covid-19 MEJÍA ID NOW POCT Rapid Influenza B MEJÍA ID NOW Culture, Throat POCT Rapid Influenza A MEJÍA ID NOW Office Visit on 06/24/2025 Component Date Value Ref Range Status Rapid Strep A Screen 06/24/2025 Negative Negative, None Detected Final QC Media Lot # 06/24/2025 [id number] Final Lot# Expiration Date 06/24/2025 12,052,026 Final Coronavirus Antigen PCR 06/24/2025 Negative Negative, Indeterminate, None Detected, Invalid, Specimen unsatisfactory for evaluation, Weakly Positive, 2+ Final QC Media Lot # 06/24/2025 [id number] Final Lot# Expiration Date 06/24/2025 [id number] Final Influenza B 06/24/2025 Negative Negative, Indeterminate Final QC Media Lot # 06/24/2025 [id number] Final Lot# Expiration Date 06/24/2025 2,212,027 Final Influenza A 06/24/2025 Negative Negative, Indeterminate Final QC Media Lot # 06/24/2025 [id number] Final Lot# Expiration Date 06/24/2025 2,212,027 Final Sore throat: - Sore throat with possible streptococcal pharyngitis; differential includes viral pharyngitis and influenza. - Ordered rapid strep test, rapid COVID test, rapid influenza test, and throat culture. Recommended salt water gargles, honey for symptomatic relief, maintain hydration, and adequate sleep. Advised to monitor for fever and contact office if symptoms worsen. Will prescribe antibiotics ifthroat culture confirms streptococcal infection. Will consider antiviral therapy if influenza test is positive. Covid, Flu A&B, rapid strep were negative. A sample is being sent for a Strep Culture. If the culture is positive, we'll let you know and proscribe and antibiotic. For now, get sleep, stay well hydrated. Gargle with saltwater as frequently as you like; you can take a teaspoon of honey or place it in tea for symptomatic relief. If you're throat worsens or symptoms don't resolve in the next contact us to be seen again. Current Medications[3] Follow up if symptoms worsen or fail to improve. [facility] [employer] Attestation [employer]AR[employer]NER Resident Attestation: Patient was seen and evaluated by Xavier SALAS, in collaboration with Indira Mcdaniel TURNAROUND PLANNER who has reviewed my assessment and plan. I, Indira Mcdaniel TURNAROUND PLANNER , have reviewed the resident's note and agree with the assessment & plan of care as documented above. This note was drafted using Ambient (AI) technology. 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 Left upper quadrant pain Urinary incontinence Allergic rhinitis Generalized anxiety disorder [2] Allergies Allergen Reactions Morphine Shortness of breath Sumatriptan Other reaction(s): ITCHINESS, DIFFICULTY BREATHING Amitriptyline Gabapentin [3] Current Outpatient Medications: Acetaminophen 500 MG capsule, Take 2 capsules (1,000 mg) by mouth every 8 (eight) hours if needed for mild pain, moderate pain, headaches or fever., Disp: 60 capsule, Rfl: 1 Blood Pressure Monitor mis, Check BP daily, Disp: 1 each, Rfl: 0 diclofenac sodium 3 % gel, Apply to affected painful areas once or twice daily, Disp: 100 g, Rfl: 1 meloxicam (Mobic) 15 MG tablet, Take 1 tablet (15 mg) by mouth Once per day., Disp: 30 tablet, Rfl:11 Nurtec 75 MG tablet dispersible, DISSOLVE 1 TABLET ON THE TONGUE EVERY OTHER DAY NEEDED FOR MIGRAINE HEADACHE, Disp: 8 tablet, Rfl: 3 ondansetron ODT (Zofran-ODT) 4 MG disintegrating tablet, Take 1 tablet (4 mg) by mouth every 8 (eight) hours if needed for nausea or vomiting., Disp: 30 tablet, Rfl: 2 propranolol (Inderal) 20 MG tablet, Take 1 tablet by mouth 30 - 60 minutes prior to anxiety-provoking situation, Disp: 30 tablet, Rfl: 3 Tirzepatide-Weight Management (Zepbound) 2.5 MG/0.5ML solution auto-injector, Inject 0.5 mL (2.5 mg) under the skin 1 (one) time per week., Disp: 2 mL, Rfl: 11 traZODone (Desyrel) 50 MG tablet, Take 1 tablet (50 mg) by mouth at bedtime., Disp: 90 tablet, Rfl:3 documented in this encounter Plan of Treatment Scheduled Orders Name Type Priority Associated Diagnoses Orde r Schedule Culture, Throat Microbiology Routine Sore throat Ordered: 06/24/2025 documented as of this encounter Procedures Procedure Name Priority Date/Time Associated Diagnosis Comments POCT INFLUENZA B (ID NOW RAPID MOLECULAR) Routine 06/24/2025 3:46 PM EST Sore throat POCT COVID-19 AG MEJÍA ID NOW Routine 06/24/2025 3:46 PM EST Sore throat POCT INFLUENZA A (ID NOW RAPID MOLECULAR) Routine 06/24/2025 3:45 PM EST Sore throat POC MEJÍA ID NOW STREP A Routine 06/24/2025 3:45 PM EST Sore throat documented in this encounter Results * POCT Rapid Influenza B MEJÍA ID NOW (06/24/2025 3:46 PM EST) Influenza B Negative Negative, Indeterminate [facility] QC Media Lot # [id number] [facility] Lot# Expiration Date [facility] Swab 06/24/2025 3:46 PM EST Xavier SALAS POINT OF CARE TEST ENTER/EDIT ORDERABLES Edited Result - Final [facility] [address] [place] [phone] * (ABNORMAL) POCT Rapid Covid-19 MEJÍA ID NOW (06/24/2025 3:46 PM EST) Coronavirus Antigen PCR Negative Negative, Indeterminate, None Detected, Invalid, Specimen unsatisfactory for evaluation, Weakly Positive, 2+ QC Media Lot # [id number] Lot# Expiration Date ,026 Swab 06/24/2025 3:46 PM EST [facility] POINT OF CARE TEST ENTER/EDIT ORDERABLES Final Result * POCT Rapid Influenza A MEJÍA ID NOW (06/24/2025 3:45 PM EST) Influenza A Negative Negative, Indeterminate [facility] QC Media Lot # [id number] [facility] Lot# Expiration Date [facility] Swab 06/24/2025 3:45 PM [facility]EDIT ORDERABLES Final Result [facility] [address] [place] [phone] * POCT Rapid Strep A MEJÍA ID NOW (06/24/2025 3:45 PM EST) Rapid Strep A Screen Negative Negative, None Detected QC Media Lot # [id number] Lot# Expiration Date Swab 06/24/2025 3:45 PM EST [facility] [employer] POINT OF CARE TEST ENTER/EDIT ORDERABLES Final Result documented in this encounter Visit Diagnoses Diagnosis Sore throat Acute pharyngitis documented in this encounter Additional Health Concerns Assessment Noted Time PHQ-9 Depression Total Score: 14 025 9:41 AM EDT documented as of this encounter Care Teams Grocery Worker Relationship Specialty Start Date End Date Kassy Land MD [address] [place] [phone] PCP - General Family Medicine 08/13/18 documented as of this encounter
--- OUTSIDE RECORDS SUMMARY | 2025-06-24 19:11 | XMS_ITS | Encounter Summary ---
Author Organization [employer] Address [address] [facility] [place] [address] Care Team Providers Care Daycare Provider Name Role Phone Kassy Land MD Primary Care Provider [phone] Reason for Visit * Reason Onset Date Comments Med Refill 12/30/2024 Encounter Details Date Type Department Care Team (Late st Contact Info) Description 12/30/2024 Telephone [facility] [address] [place], [place] [phone] Kassy Land MD [address] [place], [place] [phone] Med Refill Social History Tobacco Use Types [...] EDT Travel History Travel Start Travel End [place] 05/24/2025 06/24/2025 documented as of this encounter Miscellaneous Notes * Telephone Encounter - Julienne Enamorado LPN - 12/30/2024 2:44 PM EDT Medication was sent to [facility] #[id number] on 12/17/24 with 1 refill. * Telephone Encounter - Barb Vann - 12/30/2024 2:41 PM EDT TC from pt requesting medication refill. Medications needing refill : Semaglutide-Weight Management (Wegovy) 2.4 MG/0.75ML solution auto-injector To be sent to: [id number] - [facility] [id number] [facility] documented in this encounter Plan of Treatment Not on file documented as of this encounter Visit Diagnoses Not on filedocumented in this encounter Additional Health Concerns Assessment Noted Time PHQ-9 Depression Total Score: 21 025 1:48 PM EST documented as of this encounter Care Teams Daycare Provider Relationship Specialty Start Date End Date Kassy Land MD [address] [place] [address] PCP - General Family Medicine 08/13/18 documented as of this encounter
--- OUTSIDE RECORDS SUMMARY | 2025-06-24 19:11 | XMS_ITS | Encounter Summary ---
Author Organization [employer] Address [address] [place] [address] 7 [place] [address] Care Team Providers Care Hybrid Car Mechanic Name Role Phone Kassy Land MD Primary Care Provider [phone] Reason for Referral * Imaging (Routine) - Closed Specialty Diagnoses / Procedures Referred By Leo verdugo Referred To Contact Radiology Diagnoses Left upper quadrant pain Procedures US Abdomen Limited Kassy Land MD [address] [place] [address] Phone: tel: fax: [address] Phone: tel: fax: Referral ID Status Reason Start Date Expiration Date Visits Re quested Visits Authorized [id number] Closed 09/25/2024 09/25/2025 1 1 Encounter Details Date Type Department Care Team (Late st Contact Info) Description 09/25/2024 Orders Only [facility] [address] [place], [place] [phone] Kassy Land MD [address] [place] [address] Left upper quadrant pain (Primary [...] EDT Travel History Travel Start Travel End [place] 05/24/2025 06/24/2025 documented as of this encounter Plan of [...] 7:58 PM EDT 12/16/2024 7:58 PM EDT Comment:CC Narrative [facility] - 12/18/2024 10:39 AM EDT Urine Culture Report Result Urine Culture < 10,000 cfu/ml Specimen Source: Urine clean catch us Generic External Data Provider LAB MICROBIOLOGY - GENERAL ORDERABLES Final Result [facility] [address] [place] [phone] * hCG, Total, Quantitative (12/16/2024 7:40 PM EDT) HCG Quantitative <2 mIU/mL [facility] Comment:Weeks post LMP Appro ximate hCG(Last Menstrual Period) Range (mIU/ml)3 - 4 weeks 9 - 1304 - 5 weeks 75 - 2,6005 - 6 weeks 850 - 20,8006 - 7 weeks 4000 - 100,2007 - 12 weeks 11,500 - 289,72310 - 16 weeks 18,300 - 137,01034 - 29 weeks (2nd trimester) 1,400 - 53,47023 - 41 weeks (3rd trimester) 940 - [...] Provider LAB BLOOD ORDERAB LES Final Result [facility] [address] [place] [phone] * (ABNORMAL) Comprehensive Metabolic Panel (12/16/2024 7:40 PM EDT) Sodium 140 135 - 145 mmol/L [facility] Potassium 3.4 3.3 - 5.1 mmol/L [facility] Chloride 107 96 - 108 mmol/L [facility] Carbon Dioxide 25 22 - 29 mmol/L [facility] Anion Gap 11(L) 12 - 20 [facility] Urea Nitrogen (BUN) 7(L) 9 - 16 mg/dL [facility] Creatinine, Serum 0.60 0.5 - 1.4 mg/dL [facility] Creatinine Clr Calc Pharmacy 108.0 [facility] Comment:Provided height and weight: 152.4 cm,70.307 kg.eGFR (calculated from the MDRD study equation) and eCrCl(calculated from the Cockcroft-Gault equation) are based ondifferent parameters and may not yield comparable results.If eCrCl result is absurd, please check patient'sheight/weight. Estimated Glomerular Filt Rate >60 [facility] Comment:Chronic Kidney Disea se: Estimated GFR < 60 mL/min/1.78f1Adphlx Kidney Disease: Estimated GFR < 15 mL/min/1.73m2 Glucose 87 60 - 115 mg/dL [facility] Calcium 9.2 8.4 - 10.2 mg/dL [facility] Bilirubin, Total 0.4 0.0 - 1.0 mg/dL [facility] Aspartate Amino Transferase 26 5 - 31 U/L [facility] Alanine Aminotransferase 16 0 - 31 U/L [facility] Total Protein 7.7 6.5 - 8.0 g/dL [facility] Albumin Level 4.2 3.5 - 5.0 g/dL [facility] Alkaline Phosphatase 63 39 - 117 U/L [facility] 12/16/2024 7:40 PM EDT 12/16/2024 7:43 PM EDT us Generic External Data Provider LAB BLOOD ORDERAB LES Final Result Performing Organization Address [facility] Co de Phone Number [facility] [address] [place] [phone] * HCG, Qualitative, Urine (12/16/2024 7:40 PM EDT) [facility] Urine NEGATIVE NEGATIVE [facility] Comment:This test was develo ped to detect early . Falsenegative results may occur after the 5th - 7th week ofpregnancy when using this test method. If clinicallyindicated, consider a serum hCG. 12/16/2024 7:40 PM EDT 12/16/2024 7:43 PM EDT us Generic External Data Provider LAB URINE ORDERAB LES Final Result Performing Organization Address [facility] Co de Phone Number [facility] [address] [place] [phone] * (ABNORMAL) Urinalysis, Complete, with Reflex to Culture (12/16/2024 7:40 PM EDT) Pathologist [facility] Color Urine Dark Yellow [facility] Appearance Urine Cloudy [facility] PH 8.0 5.0 - 9.0 [facility] Glucose Urine UA Negative Negative mg/dL [facility] Urine Blood Negative Negative [facility] Specific [place] - Urine 1.025 1.005 - 1.025 [facility] Urine Protein 30 (1+)(A) Neg-Trace mg/dL [facility] Urine Ketones Trace Negative mg/dL [facility] Nitrite Urine Negative Negative [facility] Leukocyte Esterase Urine Moderate (2+)(A) Negative [facility] RBC Urine 0-2 0 - 2 /HPF [facility] Urine WBC >50(A) 0 - 5 /HPF [facility] Urine Squamous Epithelial Cell 11-20 0 - 2 /HPF [facility] Urine Bacteria 4+ None Seen [facility] Hyaline Casts, Urine 3-5 0 - 2 /LPF [facility] 12/16/2024 7:40 PM EDT 12/16/2024 7:43 PM EDT Narrative [facility] - 12/16/2024 7:58 PM EDT [id number], Clean Catch us Generic External Data Provider LAB URINE ORDERAB LES Final Result [facility] [address] [place], [place] [phone] * (ABNORMAL) CBC auto differential (12/16/2024 7:40 PM EDT) White Blood Count 7.5 4.8 - 10.8 X10*3/uL [facility] Red Blood Count 4.92 4.20 - 5.50 X10*6/uL [facility] Hemoglobin 13.2 12.0 - 16.0 g/dl [facility] Hematocrit 39.6 37.0 - 47.0 % [facility] Mean Corpuscular Volume 80.5 80.0 - 98.0 fL [facility] Mean Corpuscular Hemoglobin 26.8(L) 27.0 - 33.0 pg [facility] Mean Corpuscular HGB Conc 33.3 31.0 - 35.0 g/dl [facility] Red Cell Distribution Width 13.0 11.0 - 16.0 % [facility] Platelet Count 241 160 - 400 X10*3/uL [facility] Mean Platelet Volume 10.4 9.4 - 12.3 fL [facility] Neutrophils Percent Auto 49.3 45 - 73 % [facility] Imm Gran Pct Auto 0.1 0.0 - 0.4 % [facility] Lymphocytes Percent Auto 39.5 20 - 40 % [facility] Monocytes Percent Auto 9.3 2 - 11 % [facility] Eosinophils Percent Auto 0.7 0 - 4 % [facility] Basophils Percent Auto 1.1 0 - 2 % [facility] NRBC Pct Auto 0.0 0.0 - 0.2 /100WBC [facility] Neutrophils Absolute Auto 3.7 2.0 - 8.3 x10*3/uL [facility] Imm Gran Abs Auto 0.01 0.00 - 0.03 X10*3/uL [facility] Lymphocytes Absolute Auto 2.9 1.2 - 4.9 X10*3/uL [facility] Monocytes Absolute Auto 0.7 0.1 - 1.2 X10*3/uL [facility] Eosinophils Absolute Auto 0.1 0.0 - 0.4 X10*3/uL [facility] Basophils Absolute Auto 0.1 0.0 - 0.2 X10*3/uL [facility] NRBC Abs Auto 0.000 0.0 - 0.012 X10*3/uL [facility] 12/16/2024 7:40 PM EDT 12/16/2024 7:43 PM EDT us Generic External Data Provider LAB BLOOD ORDERAB LES Final Result [facility] [address] [place] [phone] * Chlamydia/N. Gonorrhoeae RNA, TMA, Urogenitial (11/26/2024 1:30 PM EDT) CT PCR NOT DETECTED Not Detect. [facility] Comment:A not detected test result [...] psychologicalconsequences. NG PCR NOT DETECTED Not Detect. [facility] Comment:A not detected test result [...] PM EDT 11/26/2024 4:38 PM EDT Narrative [facility] - 11/27/2024 9:18 AM EDT Vaginal us Generic External Data Provider LAB MICROBIOLOGY - GENERAL ORDERABLES Final Result [facility] [address] [place] [phone] * Bacterial Vaginosis (11/26/2024 1:30 PM EDT) TRICHOMONAS VAGINALIS DETECTION BY PCR NOT DETECTED Not Detect [facility] BACTERIAL VAGINOSIS DETECTION BY PCR NEGATIVE Negative [facility] Comment:The BV organism targ ets [...] DETECTION BY PCR NOT DETECTED Not Detect [facility] Gloria glab krusei PCR NOT DETECTED Not Detect [facility] 11/26/2024 1:30 PM EDT 11/26/2024 4:38 PM EDT Generic External Data Provider LAB MICROBIOLOGY - GENERAL ORDERABLES Final Result Performing Organization Address City/State/[facility] Co de Phone Number [facility] [address] [place] [phone] * US Abdomen Limited (10/10/2024 5:14 PM EST) Anatomical Region Laterality Modality Abdomen Ultrasound 10/10/2024 5:14 PM EST Narrative 10/10/2024 5:16 PM EST [facility] [facility] [place] [address] Ultrasound Report Signed Patient: Della Felton MR#: [id number] : 1985 Acct:[id number] Age/Sex: 39 / F ADM Date: 10/10/24 Loc: HO.HMGCX Attending Dr: Kassy Land MD Ordering Physician: Kassy Land MD Date of Service: 10/10/24 Procedure(s): US abdomen limited Accession Number(s): [id number] cc: Kassy Land MD CLINICAL HISTORY: LUQ [...] in OV> 10/10/241714 DD/ 13 TD/TT: 10/10/241713 Vessel Liner: Procedure Note Donotuseinterpreter, Image - 10/10/2024 [facility] [place] [address] Ultrasound Report Signed Patient: Dennis Felton#: [id number] : 1985Acct:[id number] Age/Sex: 39 / FADM Date: 10/10/24 Loc: .HMGCX Attending Dr: Kassy Land MD Ordering Physician: Kassy Land MD Date of Service: 10/10/24 Procedure(s): US abdomen limited Accession Number(s): [id number] cc: Kassy Land MD CLINICAL HISTORY: LUQ [...] Dunne MD Signed By: <Electronically signed by iWll Dunne MD in OV> 10/10/241714 DD/ 13 TD/TT: 10/10/241713 Vessel Liner: Kassy Lnad MD IMG US PROCEDURES Final Result * BI Mammogram Screening Tomosynthesis Bilateral (09/25/2024 8:25 AM EST) Anatomical Region Laterality Modality Breast Bilateral Mammography 09/25/2024 8:25 AM EST Narrative 10/03/2024 4:53 PM EST [facility] [place] [address] Mammography Report Signed Patient: Della Felton MR#: [id number] : 1985 Acct:[id number] Age/Sex: 39 / F ADM Date: 09/25/24 Loc: HO.MAMMO Attending Dr: Kassy Land MD Ordering Physician: Kassy Land MD Results: 1Negative Date of Service: 09/25/24 Follow Up: 1 Year From Orig ina Mammogram Procedure(s): MM tomosynthesis screening BI Accession Number(s): [id number] cc: Kassy Land MD EXAMINATION: MM SCREENING [...] 10/03/24 1649 DD/ 0825 TD/TT: 09/25/24 0843 Vessel Liner: Procedure Note Donotuseinterpreter, Image - 10/03/2024 [facility] [address] [place] [address] Mammography Report Signed Patient: Delilah FeltonR#: [id number] : 1985Acct:[id number] Age/Sex: 39 / FADM Date: 09/25/24 Loc: HO.MAMMO Attending Dr: Kassy Land MD Ordering Physician: Kassy Land MDResults: 1Negative Date of Service: 09/25/24Follow Up: 1 Year From Orig inal Mammogram Procedure(s): MM tomosynthesis screening BI Accession Number(s): [id number] cc: Kassy Land MD EXAMINATION: MM SCREENING [...] Mueller DO in OV> 10/03/24 1649 DD/ 4 TD/TT: 09/25/24842 Vessel Liner: Kassy Land MD IMG BI PROCEDURES Final Result documented in this encounter Visit Diagnoses Diagnosis Left upper quadrant pain- Primary Abdominal pain, left upper quadrant documented in this encounter Additional Health Concerns Assessment Noted Time PHQ-9 Depression Total Score: 21 025 1:48 PM EST documented as of this encounter Care Teams Hybrid Car Mechanic Relationship Specialty Start Date End Date Kassy Land MD [address] [place] [address] PCP - General Family Medicine 08/13/18 documented as of this encounter
--- OUTSIDE RECORDS SUMMARY | 2025-06-24 19:11 | XMS_ITS | Encounter Summary ---
Author Organization [employer] Address [address] [facility] 7 [place] [address] Care Team Providers Care Manual Control Auger Press Operator Name Role Phone Kassy Land MD Primary Care Provider [phone] Reason for Visit * Reason Comments Med Refill Encounter Details Date Type Department Care Team (Late st Contact Info) Description 10/23/[address] [facility] [address] [place], [place] [phone] Kassy Land MD [address] [place], [place] [phone] Class 2 severe obesity due to excess [...] documented as of this encounter Care Teams Manual Control Auger Press Operator Relationship Specialty Start Date End Date Kassy Land MD [address] [place] [phone] PCP - General Family Medicine 08/13/18 documented as of this encounter
--- OUTSIDE RECORDS SUMMARY | 2025-06-24 19:12 | XMS_ITS | Encounter Summary ---
Author Organization [employer] Address [address] [facility] 7 [place] [address] Care Team Providers Care Cvt Tech Name Role Phone Kassy Land MD Primary Care Provider [phone] Reason for Visit * Reason Onset Date Comments Lab Orders 11/02/2022 Encounter Details Date Type Department Care Team ([facility] st Contact Info) Description 11/02/2022 Telephone [facility] [address] [place], [place] [phone] Kassy Land MD [address] [place] [address] Lab Orders Social History Tobacco Use Types [...] EDT Travel History Travel Start Travel End [place] 05/24/2025 06/24/2025 COVID-19 Exposure Response Date Recorded In the last 10 days, have yo u been in contact with someone who was confirmed or suspected to have Coronavirus/COVID-19? No / Unsure 10/31/2022 9:19 AM EDT documented as of this encounter Miscellaneous Notes * Telephone Encounter - Jluis Whitmore - 11/02/2022 4:30 PM EDT Tc from porter with [facility] requesting an order for an MRI for the brain with out contrast. NPI # [id number] documented in this encounter Plan of Treatment Not on file documented as of this encounter Visit Diagnoses Not on filedocumented in this encounter Care Teams Cvt Tech Relationship Specialty Start Date End Date Kassy Land MD [address] [place] [phone] PCP - General Family Medicine 08/13/18 documented as of this encounter
--- OUTSIDE RECORDS SUMMARY | 2025-06-24 19:12 | XMS_ITS | Clinical Summary ---
Author Organization [employer] Address [address] [facility] 7 [place] [address] Care Team Providers Care Water Plant Operator Name Role Phone Kassy Land MD Primary Care Provider [phone] Allergies Active Allergy Reactions Criticality Noted Date Comments Amitriptyline 06/24/2013 Gabapentin 02/05/2012 Morphine Shortness of breath High 02/09/2025 Sumatriptan High 06/24/2013 Other reaction(s): ITCHINESS, DIFFICULTY BREATHING Medications Acetaminophen 500 MG capsule Take 2 capsules (1,000 mg) by mouth every 8 (eight) hours if needed for mild pain, moderate pain, headaches or fever. 60 capsule 1 09/18/19 25 Active diclofenac sodium 3 % gel Apply to affected painful areas once or twice daily 100 g 1 09/19/19 25 Active meloxicam (Mobic) 15 MG tabletIndications :Right-sided low back pain with bilateral sciatica, unspecified chronicity Take 1 tablet (15 mg) by mouth Once per day. 30 tablet 11 12/25/19 25 026 [facility] BP daily 1 each 01/14/20 25 [...] at bedtime. 90 tablet 3 05/13/20 25 026 Active Tirzepatide-Weigh t Management (Zepbound) 2.5 MG/0.5ML solution auto-injectorIndi cations:Class 1 obesity due to excess calories without serious comorbidity with body mass index (BMI) of 32.0 to 32.9 in adult Inject 0.5 mL (2.5 mg) under the skin 1 (one) time per week. 2 mL 11 05/13/20 25 Active Nurtec 75 MG tablet dispersibleIndica tions:Migraine without status migrainosus, not intractable, unspecified migraine type DISSOLVE 1 TABLET ON THE TONGUE EVERY OTHER DAY NEEDED FOR MIGRAINE HEADACHE 8 tablet 3 06/08/20 25 Active Nurtec 75 MG tablet dispersibleIndica tions:Migraine without status migrainosus, not intractable, unspecified migraine type DISSOLVE 1 TABLET ON THE TONGUE EVERY OTHER DAY NEEDED FOR MIGRAINE HEADACHE DISSOLVE ON TONGUE 8 tablet 3 09/18/19 25 025 Discontinued Active Problems Problem Noted Date Diagnosed Date Generalized anxiety disorder 05/21/2025 Assessment & Plan (05/21/2025 11:18 AM EDT): - HIEN-7 score 15 on 05/13/2025 - She has a long-term therapist; continue current treatment - Patient decreased the propranolol last year and has been taking propranolol as needed Allergic rhinitis 05/13/2025 Urinary incontinence 09/23/2024 Assessment [...] 8 Chronic depression 03/29/2016 Assessment & Plan (05/21/2025 11:19 AM EDT): - with anxiety symptoms - PHQ9 score 21 and GAD7 score 21 on 09/18/24. Patient denies SI or plan. - PHQ-9 score 14 and HIEN-7 score 15 on 05/13/2025 - Continue counseling with current [facility] provider: Naomi Weiner [address] - Previously tried venlafaxine and hydroxyzine, which she self-discontinued - She is prescribed propranolol for anxiety (patient requested in May 2024), taking as prn flight phobia - She contracted her safety today. She has a crisis number and has her long-term therapist. She will consider trying [address] on her son. Assessment & Plan (01/25/2025 10:48 AM EDT): - with anxiety symptoms - PHQ9 score 21 and GAD7 score 21 on 09/18/24. Patient denies SI or plan. - Continue counseling with current [facility] provider: Naomi Weiner [address] - Previously tried venlafaxine and hydroxyzine, [...] or plan. - Continue counseling with current [facility] provider: Naomi Weiner [address] - Previously tried venlafaxine and hydroxyzine, which she self-discontinued - She is prescribed propranolol for anxiety (patient requested in May 2024), - She contracted her safety today. She has a crisis number and has her long-term therapist. Assessment & Plan (06/20/2024 11:17 AM EST): - with anxiety symptoms - Continue counseling with current [facility] provider: Naomi Weiner [address] - Previously tried venlafaxine and hydroxyzine, which she self-discontinued - She is requesting propranolol, will prescribe as patient requested Assessment & Plan (09/09/2023 6:40 PM EST): - Continue counseling with current [facility] provider: Naomipreston Weiner [address] - Restart venlafaxine - Restart hydroxyzine prn Assessment & Plan (09/20/2022 1:59 PM EST): - Continue counseling with current [facility] provider: Naomi Weiner [address] - Restart venlafaxine - Restart hydroxyzine prn Benign paroxysmal positional vertigo 08/04/2015 Hypertrophy of tonsils 10/30/2013 Chronic headache disorder 08/14/2012 Assessment & Plan (05/21/2025 11:15 AM EDT): - multifactorial - tension, vestibular, sinus, and migraine - following with [facility] neurology, last seen in Apr [...] effective for migraine prophylaxis Assessment & Plan (01/13/2025 9:00 AM EDT): - multifactorial - tension, vestibular, sinus, and migraine - following with [facility] neurology, last seen in Apr [...] vestibular, sinus, and migraine - following with [facility] neurology, last seen in Apr [...] vestibular, sinus, and migraine - following with [facility] neurology, last seen in Apr [...] vestibular, sinus, and migraine - following with [facility] neurology, last seen in October [...] with neurologist Migraine 08/14/2012 Assessment & Plan (05/21/2025 11:16 AM EDT): Currently following with [facility] neurology service, last seen on 10/26/22 [...] schedule appointment with neurologist Assessment & Plan (01/25/2025 10:47 AM EDT): Currently following with [facility] neurology service, last seen on 10/26/22 [...] (09/19/2024 6:16 PM EST): Currently following with [facility] neurology service, last seen on 10/26/22 [...] (05/13/2024 3:55 PM EDT): Currently following with [facility] neurology service, last seen on 10/26/22 [...] (09/14/2023 3:44 PM EST): Currently following with [facility] neurology service, last seen on 10/26/22 [...] (11/21/2022 3:52 PM EDT): Currently following with [facility] neurology service, last seen on 10/26/22 [...] (09/20/2022 1:58 PM EST): Currently following with [facility] neurology service -Previously tried medications --Topamax [...] to Migraines Obesity 08/14/2012 Assessment & Plan (05/21/2025 11:14 AM EDT): - Started GLP1RA in May 2024, semaglutide - Currently on semaglutide 2.4 mg weekly - Switch to tirzepatide 2.5 mg weekly - Continue lifestyle modification effort Assessment & Plan (01/15/2025 10:42 PM EDT): [...] Encounters Date Type Department Care Team Description 06/24/2025 3:15 PM EST Office Visit [facility] [address] [place] [phone] Xavier Dill FNP Sore throat 06/24/2025 Travel 06/24/2025 Telephone [facility] [address] [place] [address] Kassy Land MD Nurse Triage 06/07/2025 Refill [facility] [address] [place] [address] Kassy Land MD Migraine without status migrainosus, not intractable, unspecified migraine type 06/07/2025 Refill [facility] [address] [place] [address] Kassy Land MD Migraine without status migrainosus, not intractable, unspecified migraine type 05/13/2025 9:00 AM EDT Office Visit [facility] [place] [address] Kassy Land MD Chronic depression (Primary Dx); Encounter for immunization; Screening for lipid disorders; Screening for diabetes mellitus; Immunity status testing; Vitamin deficiency; Class 1 obesity due to excess calories without serious comorbidity with body mass index (BMI) of 32.0 to 32.9 in adult; Chronic nonintractable headache, unspecified headache type; Migraine without status migrainosus, not intractable, unspecified migraine type; Generalized anxiety disorder 05/13/2025 Travel 05/12/[address] [address] Kassy Land MD chart prep 04/16/2025 10:00 AM EDT Office Visit [address] [address] Kasey Armijo FNP Insect bite of right foot, initial encounter (Primary Dx) 04/16/[address] [address] Kassy Land MD Medication Question 04/16/2025 Travel 04/15/[address] [phone] Kassy Land MD Nurse Triage 04/08/[address] [address] Kassy Land MD may recall from Last 3 Months Immunizations Immunization Administration Dates Next Due Hep A, Adult 12/04/2011,05/29/2011 Influenza injectable quadriv alent IIV4 with preservative 09/20/2017,04/26/2015 Influenza injectable quadriv alent preservative free 09/12/2022,05/09/2021,05/26/2020,2019,08/19/2018,07/20/2016,10/29/2014 Influenza, IIV3, injectable 05/29/2011 Influenza, Split (incl. lore fied surface antigen) 05/15/2013,08/14/2012 Influenza, seasonal, injecta ble, preservative free 05/13/2025,05/13/2024 Moderna Covid-19 Vaccine 12+ 12/16/2020,11/19/19 21 Pfizer Covid-19 Vaccine 12+ 12/16/2020, TD (adult), 2 Lf tetanus tox oid, [...] is your housing situation today? I have joseestefania tello 09/18/[address] you [...] EDT Travel History Travel Start Travel End [place] 05/24/2025 06/24/2025 Last Filed Vital Signs Vital Sign Reading [...] Mass Index 32.46 06/24/2025 3:22 PM EST Plan of Treatment Health Maintenance Due [...] 025 Disability Screening 01/13/2026 01/13/2025 Tobacco Screening 06/24/2026 06/24/2025 Mammogram 09/25/2026 09/25/2024, 09/20/2023 Lipid Panel 05/13/2030 05/13/2025, 05/14/2024 DTaP/Tdap/Td Vaccines (3 - Td or [...] Routine 06/24/2025 3:45 PM EST Sore throat HEPATITIS B SURFACE ANTIBODY, QUALITATIVE Routine 05/13/2025 9:55 AM EDT Immunity status testing VITAMIN D,25-OH,TOTAL,IA Routine 05/13/2025 9:55 AM EDT Vitamin deficiency LIPID PANEL WITH REFLEX TO DIRECT LDL Routine 05/13/2025 9:55 AM EDT Screening for lipid disorders HEMOGLOBIN A1C Routine 05/13/2025 9:55 AM EDT Screening for diabetes mellitus BI MAMMOGRAM SCREENING TOMOSYNTHESIS BILATERAL Routine 09/25/2024 8:25 AM EST from Last 3 Months or Most Recently Relevant to Health Maintenance Results * POCT Rapid Influenza B MEJÍA ID NOW (06/24/2025 3:46 PM EST) Pathologist [facility] Influenza B Negative Negative, Indeterminate [facility] QC Media Lot # [id number] [facility] Lot# Expiration Date [facility] Swab 06/24/2025 3:[address] [facility] POINT OF CARE TEST ENTER/EDIT ORDERABLES Edited Result - Final [facility] [address] [place], [place] [phone] * (ABNORMAL) POCT Rapid Covid-19 MEJÍA ID NOW (06/24/2025 3:46 PM EST) Pathologist [facility] Coronavirus Antigen PCR Negative Negative, Indeterminate, None Detected, Invalid, Specimen unsatisfactory for evaluation, Weakly Positive, 2+ QC Media Lot # [id number] Lot# Expiration Date ,788 Swab 06/24/2025 3:46 PM EST Xavier Dill [employer] SUPERVISOR POINT OF CARE TEST ENTER/EDIT ORDERABLES Final Result * POCT Rapid Influenza A MEJÍA ID NOW (06/24/2025 3:45 PM EST) Influenza A Negative Negative, Indeterminate [facility] QC Media Lot # [id number] [facility] Lot# Expiration Date [facility] Swab 06/24/2025 3:45 PM EST [facility] POINT OF CARE TEST ENTER/EDIT ORDERABLES Final Result [facility] [address] [place] [phone] * POCT Rapid Strep A MEJÍA ID NOW (06/24/2025 3:45 PM EST) Rapid Strep A Screen Negative Negative, None Detected QC Media Lot # [id number] Lot# Expiration Date Swab 06/24/2025 3:45 PM EST [facility] POINT OF CARE TEST ENTER/EDIT ORDERABLES Final Result * (ABNORMAL) Vitamin D, 25-Hydroxy, Total, Immunoassay (05/13/2025 9:55 AM EDT) Vitamin D 25-OH Total 19.4(L) >30 ng/mL [facility] Comment: Health Based Reference Values*< 20 ng/mL Egvqjiqpg51-61 ng/mL Insufficient> 30 ng/mL Sufficient*Jany WHITE. N Engl J Med. 2007;357:266-280There is no well-established upper level of normal vitamin Dlevels. Some laboratories use 50 ng/mL as an upper limit ofnormal. However, toxicity is patient-dependent and may occurat any level. Careful correlation with the patient'spresentation is necessary and, if there is concern forvitamin D toxicity, treatment should be consideredirrespective of the serum level.Care must be taken in interpreting Vitamin D results fromdifferent laboratories and methodologies. Published datademonstrated that results from patients undergoinghemodialysis may show a negative bias when tested withvarious automated 25-OH vitamin D assays when compared toLC-MS/MS.When testing samples from patients whose predominant form ofVitamin D is Vitamin D2, such as patients receiving VitaminD2 supplementation, results that are subtherapeutic shouldbe confirmed with another method such as LC-MS/MS. Blood Venous blood specimen / Unknown 05/13/2025 9:55 AM EDT 05/13/2025 10:55 AM EDT Kassy Land MD LAB BLOOD ORDERABLES Final Resul t Performing Organization Address [facility] de Phone Number [facility] [address] [place] [phone] * (ABNORMAL) Lipid Panel with Reflex to Direct LDL (05/13/2025 9:55 AM EDT) Triglycerides 136 <150 mg/dL [facility] Comment:Desirable Triglyceri de: less than 150 mg/dLBorderline High Triglyceride 150-199 mg/dLHigh Triglyceride: 200-499 mg/dLVery High Triglyceride: greater than or equal to 5OO mg/dL Cholesterol 185 <200 mg/dL [facility] Comment:Desirable Cholestero l: less than 200 mg/dLBorderline High Cholesterol: 200-239 mg/dLHigh Cholesterol: greater than 239 mg/dL LDL Cholesterol Calculated 109(H) <100 mg/dL [facility] Comment:Desirable LDL: less than 100 mg/dLNear Optimal/Above Optimal LDL: 110- 129 mg/dLBorderline High LDL: 130-159 mg/dLHigh LDL: 160-189 mg/dLVery High LDL: greater than or equal to 190 mg/dL HDL Cholesterol 49 >40 mg/dL [facility] Comment:Desirable HDL: great er than 40 mg/dL Note: This HDL assay may give artificially low results in patients with liver disease. Blood 05/13/2025 9:55 AM EDT 05/13/2025 10:55 AM EDT aKssy Land MD LAB BLOOD ORDERABLES Final Resul t Performing Organization Address [facility] Co de Phone Number [facility] [address] [place] [phone] * Hepatitis B Surface Antibody, Qualitative (05/13/2025 9:55 AM EDT) ~Hepatitis B Surface Antibody REACTIVE Nonreactive [facility] Comment:REACTIVE: > 11.99 mI U/mL Blood Venous blood specimen / Unknown 05/13/2025 9:55 AM EDT 05/13/2025 10:55 AM EDT Kassy Ladn MD LAB BLOOD ORDERABLES Final Resul t Performing Organization Address [facility] Co de Phone Number [facility] [address] [place] [phone] * Hemoglobin A1c (05/13/2025 9:55 AM EDT) Hemoglobin A1c 5.3 <6.0 % [facility] Comment:Hemoglobin A1C Refer ence Range Adults: 4.8 - 6.0 % Non diabetic: < 6.0 % Goal: < 7.0 %Additional Action Suggested: > 8.0 %Note: Hemoglobin A1c results are invalid for patients with abnormal amounts of HbF. Blood transfusions may impact the HbA1c concentration in the patient sample. Estimated Average Glucose 105 mg/dL [facility] Comment:eAG = Estimated ave rage glucose which is %A1C expressed asaverage glucose, using the formula of the X2M-PpjflthEcxlizf Glucose study (ADAG), Diabetes Care, Vol.31,#8,Mar. 2007 Blood Venous blood specimen / Unknown 05/13/2025 9:55 AM EDT 05/13/2025 11:04 AM EDT Kassy Land MD LAB BLOOD ORDERABLES Final Resul t Performing Organization Address [facility] Co de Phone Number [facility] [address] [place] [phone] * BI Mammogram Screening Tomosynthesis Bilateral (09/25/2024 8:25 AM EST) Anatomical Region Laterality Modality Breast Bilateral Mammography 09/25/2024 8:25 AM EST Narrative 10/03/2024 4:53 PM EST [address] [place] [address] Mammography Report Signed Patient: Della Felton MR#: [id number] : 1985 Acct:[id number] Age/Sex: 39 / F ADM Date: 09/25/24 Loc: HO.MAMMO Attending Dr: Kassy Land MD Ordering Physician: Kassy Land MD Results: 1Negative Date of Service: 09/25/24 Follow Up: 1 Year From Orig ina Mammogram Procedure(s): MM tomosynthesis screening BI Accession Number(s): [id number] cc: Kassy Land MD EXAMINATION: MM SCREENING [...] 10/03/24 1649 DD/ 0825 TD/TT: 09/25/24 0843 [employer]: Procedure Note Donotuseinterpreter, Image - 10/03/[address] [place] [address] Mammography Report Signed Patient: Delilah FeltonR#: [id number] : 1985Acct:[id number] Age/Sex: 39 / FADM Date: 09/25/24 Loc: HO.MAMMO Attending Dr: Kassy Land MD Ordering Physician: Kassy Land MDResults: 1Negative Date of Service: 09/25/24Follow Up: 1 Year From Orig ina Mammogram Procedure(s): MM tomosynthesis screening BI Accession Number(s): [id number] cc: Kassy Land MD EXAMINATION: MM SCREENING [...] by: Sherice Mueller DO 10/03/2024 04:49 PM [facility] Dictated By: Sherice Mueller DO Signed By: <Electronically signed by Sherice Mueller DO in OV> 10/03/24 1649 DD/ 0825 TD/TT: 09/25/24 0843 [employer]: Kassy Land MD IMG BI PROCEDURES Final Result from Last 3 Months or Most Recently Relevant to Health Maintenance Insurance Care Teams Water Plant Operator Relationship Specialty Start Date End Date Kassy Land MD [address] [place] [phone] PCP - General Family Medicine 08/13/18
--- OUTSIDE RECORDS SUMMARY | 2025-06-24 19:12 | XMS_ITS | Encounter Summary ---
Author Organization [employer] Address [address] [facility] 7 [place] [address] Care Team Providers Care Refractory Manager Name Role Phone Kassy Land MD Primary Care Provider [phone] Reason for Visit * Reason Onset Date Comments Nurse Triage 06/24/2025 Encounter Details Date Type Department Care Team ([facility] st Contact Info) Description 06/24/2025 Telephone [facility] [address] [place], [place] [phone] Kassy Land MD [address] [place] [address] Nurse Triage Social History Tobacco Use Types Packs/Day Years [...] EDT Travel History Travel Start Travel End [place] 05/24/2025 06/24/2025 documented as of this encounter Miscellaneous Notes * Telephone Encounter - Kelsy Moran RN - 06/24/2025 11:58 AM EST called pt to triage, spoke to pt. pt states 2 days duration of sore throat. pt denies known exposures, fever, inability to swallow, other illness symptoms, rash, or other associated symptoms. pt states painful swallowing and is requesting appt. given appt today with [facility] blue team provider at 3:15 for exam. advised home care: rest, fluids, warm saltwater gargles, lozenges, OTC as needed and call back if worsening or new concerns. pt understands and agrees with plan. Protocol Used: Sore Throat (Adult) Protocol-Based Disposition: See in Office or Video Visit Today Video visit offer not recorded Positive Triage Question: * Patient wants to be seen * All higher-acuity triage questions were negative Care Advice Discussed: * Reassurance and Education - Sore Throat * Sore Throat * Soft Diet * Drink Plenty of Liquids * Pain and Fever Medicines * Pain and Fever Medicines - Extra Notes and Warnings * Contagiousness * Reasons To Call Back - Sore throat is the main symptom and it lasts longer than 48 hours - Sore throat is mild but lasts longer than 4 days - Fever lasts longer than 3 days - You become worse * Telephone Encounter - Jude Marshall - 06/24/2025 10:15 AM EST Symptom: Sore Throat Outcome: Talk to a nurse or provider within 15 minutes Reason: Can't swallow saliva (drooling) The caller accepted this outcome. Contact pt at [phone] documented in this encounter Plan of Treatment Not on file documented as of this encounter Visit Diagnoses Not on filedocumented in this encounter Additional Health Concerns Assessment Noted Time PHQ-9 Depression Total Score: 14 025 9:41 AM EDT documented as of this encounter Care Teams Refractory Manager Relationship Specialty Start Date End Date Kassy Land MD [address] [place] [phone] PCP - General Family Medicine 08/13/18 documented as of this encounter
--- OUTSIDE RECORDS SUMMARY | 2025-06-24 19:12 | XMS_ITS | Encounter Summary ---
Author Organization [employer] Address [address] [facility] 7 [place] [address] Care Team Providers Care Senior Brand Manager Name Role Phone Kassy Land MD Primary Care Provider [phone] Reason for Visit * Reason Onset Date Comments Med Refill 03/05/2025 Encounter Details Date Type Department Care Team (Late st Contact Info) Description 03/05/2025 Refill [facility] [address] [place], [place] [phone] Kassy Land MD [address] [place], [place] [phone] Class 1 obesity due to excess calories [...] EDT Travel History Travel Start Travel End [place] 05/24/2025 06/24/2025 documented as of this encounter [...] documented as of this encounter Care Teams Senior Brand Manager Relationship Specialty Start Date End Date Kassy Land MD [address] [place] [phone] PCP - General Family Medicine 08/13/18 documented as of this encounter
--- OUTSIDE RECORDS SUMMARY | 2025-06-24 19:12 | XMS_ITS | Encounter Summary ---
Author Organization [employer] Address [address] [place] [address] [place] [address] Care Team Providers Care Auto Mechanic Supervisor Name Role Phone Kassy Land MD Primary Care Provider [phone] Reason for Visit * Reason Onset Date Comments Med Refill 01/06/2025 Encounter Details Date Type Department Care Team (Late st Contact Info) Description 01/06/2025 Refill [facility] [address] [place], [place] [phone] Rosie Chong MD [address] [place] [address] Social History Tobacco Use Types Packs/Day Years [...] EDT Travel History Travel Start Travel End [place] 05/24/2025 06/24/2025 documented as of this encounter Plan of Treatment Not on file documented as of this encounter Visit Diagnoses Not on filedocumented in this encounter Additional Health Concerns Assessment Noted Time PHQ-9 Depression Total Score: 21 025 1:48 PM EST documented as of this encounter Care Teams Auto Mechanic Supervisor Relationship Specialty Start Date End Date Kassy Land MD [address] [place] [address] PCP - General Family Medicine 08/13/18 documented as of this encounter
--- OUTSIDE RECORDS SUMMARY | 2025-06-24 19:12 | XMS_ITS | Encounter Summary ---
Author Organization [employer] Address [address] [facility] [address] [place] [address] Care Team Providers Care Log Scaler Name Role Phone Kassy Land MD Primary Care Provider Encounter Details Date Type Department Care Team (Latest Contact Info) Description 06/24/2025 Travel Social History Tobacco Use Types Packs/Day [...] EDT Travel History Travel Start Travel End [place] 05/24/2025 06/24/2025 documented as of this encounter Plan of Treatment Not on file documented as of this encounter Visit Diagnoses Not on filedocumented in this encounter Additional Health Concerns Assessment Noted Time PHQ-9 Depression Total Score: 14 025 9:41 AM EDT documented as of this encounter Care Teams Log Scaler Relationship Specialty Start Date End Date Kassy Land MD [address] [place] [address] PCP - General Family Medicine 08/13/18 documented as of this encounter
--- OUTSIDE RECORDS SUMMARY | 2025-06-24 19:12 | XMS_ITS | Encounter Summary ---
Author Organization [employer] Address [address] [facility] [address] [place] [address] Care Team Providers Care Insurance Sales Assistant Name Role Phone Kassy Land MD Primary Care Provider [phone] Reason for Visit * Reason Onset Date Comments Med Refill 06/07/2025 Encounter Details Date Type Department Care Team (Late st Contact Info) Description 06/07/2025 Refill [facility] [address] [place], [place] [phone] Kassy Land MD [address] [place], [place] [phone] Migraine without status migrainosus, not intractable, unspecified migraine type Social History Tobacco Use Types Packs/Day Years [...] Start Travel End [place] 05/24/2025 06/24/2025 documented as of this encounter Plan of Treatment Not on file documented as of this encounter Visit Diagnoses Diagnosis Migraine without status migrainosus, not intractable, unspecified migraine type documented in this encounter Additional Health Concerns Assessment Noted Time PHQ-9 Depression Total Score: 14 025 9:41 AM EDT documented as of this encounter Care Teams Insurance Sales Assistant Relationship Specialty Start Date End Date Kassy Land MD [address] [place] [phone] PCP - General Family Medicine 08/13/18 documented as of this encounter
== END 2025-06-24 18:12 | disposition home or self-care (01) ==
LOC: HO.HHCLNP 18:11
DX: J02.9 Acute pharyngitis, unspecified (principal)
CPT/HCPCS: 87070; 87147

== ENCOUNTER → 2025-07-31 13:23 | Outpatient (BNVA) | payer OTHER, SELFPAY | PROVIDERS: PCP Family Medicine; Visit Provider Emergency Medicine | DX: S93.401A Sprain of unspecified ligament of right ankle, initial encounter (principal); X50.1XXA Overexertion from prolonged static or awkward postures, initial encounter | CPT/HCPCS: 73610; 73630; 99203 ==

== ENCOUNTER → 2025-08-10 13:05 | Outpatient (BNVA) | payer OTHER, SELFPAY | PROVIDERS: PCP Family Medicine; Visit Provider Emergency Medicine | DX: S93.401A Sprain of unspecified ligament of right ankle, initial encounter (principal); X50.1XXA Overexertion from prolonged static or awkward postures, initial encounter; Z02.79 Encounter for issue of other medical certificate | CPT/HCPCS: 73610; 73630; 99214 ==